=== PATIENT | male | born 1965 | race Two or more races ===

== ENCOUNTER 2020-01-19 21:51 | Emergency (ER) | payer OTHER, SELFPAY ==
[2020-01-19 22:06] VITALS: BP 146/89; PULSE 91; RESP 18; TEMP 36.3; O2SAT 97; BMI 32.9
[2020-01-19 23:28] LABS: Glucose Urine UA NEG (NEG); Leukocyte Esterase Urine TRACE (NEG); Nitrite Urine NEG (NEG); Specific Gravity - Urine 1.025 (1.005-1.025); Urine Blood 3+ (NEG); Urine Ketones NEG (NEG); Urine Protein 1+ MG/DL (NEG-TRACE)
--- NOTE | 2020-01-19 23:30 | ED_ITS ---
HPI - Male Genitourinary General Chief complaint: Urogenital-Male Stated complaint: BLOOD IN URINE Time Seen by Provider: 01/19/20 23:13 Source: patient Mode of arrival: ambulatory Limitations: no limitations History of Present Illness HPI Narrative: patient states was recently diagnosed with UTI on antibiotics but now is having hematuria. Patient had a procedure of the laser of the bladder neck contracture and apical prostate tissue done here 2 weeks ago. Patient states of mild suprapubic tenderness however no flank pain. No nausea no vomiting no fevers noted Severity: mild Severity scale (1-10): 3 Related Data Home Medications Medication Instructions Recorded Confirmed acetaminophen 500 mg tablet 500 mg PO Q6H PRN 01/16/20 atorvastatin 20 mg tablet 20 mg PO DAILY 01/16/20 mkyjeiezeg-grfechfyuhtoz-yszehdbs 1 cap PO Q6H PRN 01/16/20 50 mg-300 mg-40 mg capsule hydrochlorothiazide 12.5 mg tablet 12.5 mg PO DAILY 01/16/20 levothyroxine 112 mcg tablet 112 mcg PO DAILY 01/16/20 omeprazole 40 mg capsule,delayed 40 mg PO DAILY 01/16/20 release oxybutynin chloride 5 mg 5 mg PO DAILY 01/16/20 tablet,extended release 24 hr oxycodone-acetaminophen 5 mg-325 tab PO 01/16/20 mg tablet Previous Rx's Medication Instructions Recorded ciprofloxacin HCl 500 mg tablet 500 mg PO Q12H 7 Days #14 tab 01/16/20 Allergies Allergy/AdvReac Type Severity Reaction Status Date / Time No Known Allergies Allergy Unverified 12/28/19 17:11 [No Known Allergies*] Review of Systems Review of Systems: Constitutional : No Weight loss, No Fever, No Chills, No Night Sweats, No Fatigue, No Malaise ENT/Mouth : No Hearing loss, No Ear Pain, No Nasal Congestion, No Sinus Pain, No Hoarseness, No sore throat, No Rhinorrhea, No Swallowing Difficulty Eyes: No Eye Pain, No Swelling, No Redness, No Foreign Body, No Discharge, No Vision Changes Cardiovascular : No Chest Pain, No SOB, No Dyspnea on Exertion, No Orthopnea, No Edema, No Palpitations Respiratory : No Cough, No Sputum, No Wheezing, No Smoke Exposure, No Dyspnea Gastrointestinal : No Nausea, No Vomiting, No Diarrhea, No Constipation, No abdominal Pain, No Hematochezia, No Melena Genitourinary : no irregular bleeding, positive Dysuria, No Urinary Frequency, positive Hematuria, No Urinary Incontinence, No Urgency, No Flank Pain, No Urinary Flow Changes, No Hesitancy Musculoskeletal : No joint pain, No Myalgias, No Joint Swelling Skin : No Skin Lesions, No rash Neuro : No Weakness, No Numbness, No Paresthesias, No Loss of Consciousness, No Dizziness, No Headache Psych : No Anxiety/Panic, No Depression, No SI/HI/AH/VH, No Social Issues, Heme/Lymph: No Bruising, No Bleeding,No Lymphadenopathy Endocrine : No Polyuria, No Polydipsia, No Temperature Intolerance Yes all other systems are reviewed and are negative [facility] Past Medical History Medical History Bladder neck contracture Family History Family History (Updated 01/19/20 @ 23:32 by Hood Narvaez DO) Other Family history non-contributory Social History Social History Alcohol intake: never Smoking Status: Never smoker Use of substances other than those prescribed or required for medical reasons: No Advance Directives: No Advance Directives Information Provided: No Physical Exam Vital Signs and I&O and Narrative: Vital Signs and I&O: Vital Signs Temp 97.4 F 01/19/20 22:06 Pulse 91 01/19/20 22:06 Resp 18 01/19/20 22:06 BP 146/89 H 01/19/20 22:06 Pulse Ox 97 01/19/20 22:06 Intake & Output 01/19/20 01/19/20 01/20/20 06:59 18:59 06:59 Intake Total 1000 / 1000 Balance 1000 / 1000 Weight 81.647 kg Intake: Intake, IV Amoun t 1000 / 1000 0.9 % Sodium C hloride 1,000 ml 1000 / 1000 @ 999 mls/hr I VCONT .Q1H1M [facility] Rx#:[id number] Body Mass Index 32.9 vital sign noted Const: Other: Appearance: Alert. Oriented X3. No acute distress. Eyes: Pupils equal, round and reactive to light. ENT: Pharynx normal. Neck: Normal inspection. Neck supple. No lymph nodes noted. No crepitus CVS: Normal heart rate and rhythm. Pulses normal. Normal S1 and S2 Respiratory: No respiratory distress. Breath sounds normal. No Wheezing. No rales Abdomen: Soft and nontender. No rigidity. No distention. good BS x4 Skin: Skin warm and dry. Normal skin color. Normal skin turgor. Extremities: No lower extremity edema. Neurovascular intact to all extremities. No Lacerations. No Rash Neuro: Oriented X 3. No motor deficit. No sensory deficit. Moving all extermities. No slurred speech. Course Course Course Narrative: patient received a CT scan urine and labs all within normal limits. Patient able to urinate without blood clots. I discussed with him follow-up with urology. This could be possibility postop mild complication. Patient agrees nontoxic-appearing does not have any signs of peritonitis MDM - Male Genitourinary Lab Data Result diagrams: 01/19/20 23:38 01/19/20 23:38 Labs: Lab Results 01/19/20 01/19/20 01/19/20 Range/Units 23:16 23:38 23:38 WBC 5.6 (4.8-10.8) X10*3/uL RBC 5.10 (4.60-5.80) X10*6/uL Hgb 15.7 (14.0-18.0) g/dl Hct 45.1 (42-52) % MCV 88.4 (80-98) fL MCH 30.8 (27.0-33.0) pg MCHC 34.8 (31.0-36.0) g/dl RDW 13.2 (11.0-16.0) % Plt Count 178 (160-400) X10*3/uL MPV 9.1 L (9.4-12.4) fL Immature Gran % (Auto) 0.2 (0.0-0.4) % Neut % (Auto) 46.0 (45-73) % Lymph % (Auto) 39.1 (20-40) % Lares % (Auto) 11.7 H (2-11) % Eos % (Auto) 2.3 (0-4) % Baso % (Auto) 0.7 (0-2) % Lymph # (Auto) 2.2 (1.2-4.9) X10*3/uL Lares # (Auto) 0.7 (0.1-1.2) X10*3/uL Eos # (Auto) 0.1 (0.0-0.4) X10*3/uL Baso # (Auto) 0.0 (0.0-0.2) X10*3/uL Abs Immat Gran (auto) 0.01 (0.00-0.03) X10*3/uL Absolute Neuts (auto) 2.6 (2.0-8.3) X10*3/uL Absolute Nucleated RBC 0.000 (0.0-0.012) X10*3/uL Nucleated RBC % (auto) 0.0 (0.0-0.2) /100WBC PT 11.7 (10.8-13.0) SEC INR 1.0 (0.9-1.1) APTT 33.6 (24.1-38.0) SEC Sodium (135-145) mmol/L Potassium (3.3-5.1) mmol/l Chloride (96-108) mmol/L Carbon Dioxide (22-29) mmol/L Anion Gap (12-20) BUN (9-16) mg/dL Creatinine (0.5-1.4) mg/dL Estim Creat Clear Calc Estimated GFR Random Glucose (60-115) mg/dL Calcium (8.4-10.2) mg/dL Urine Color RED Urine Appearance HAZY Urine pH 7.0 (5.0-8.0) Ur Specific [place] 1.025 (1.005-1.025) Urine Protein 1+ H (NEG-TRACE) MG/DL Urine Glucose (UA) NEG (NEG) MG/DL Urine Ketones NEG (NEG) MG/DL Urine Blood 3+ H (NEG) Urine Nitrite NEG (NEG) Ur Leukocyte Esterase TRACE H (NEG) Urine RBC TNTC H (0) /HPF Urine WBC 0-2 (0-4) /HPF Ur Squamous Epith Cells TRACE /LPF Urine Bacteria NONE /LPF 01/19/20 Range/Units 23:38 WBC (4.8-10.8) X10*3/uL RBC (4.60-5.80) X10*6/uL Hgb (14.0-18.0) g/dl Hct (42-52) % MCV (80-98) fL MCH (27.0-33.0) pg MCHC (31.0-36.0) g/dl RDW (11.0-16.0) % Plt Count (160-400) X10*3/uL MPV (9.4-12.4) fL Immature Gran % (Auto) (0.0-0.4) % Neut % (Auto) (45-73) % Lymph % (Auto) (20-40) % Lares % (Auto) (2-11) % Eos % (Auto) (0-4) % Baso % (Auto) (0-2) % Lymph # (Auto) (1.2-4.9) X10*3/uL Lares # (Auto) (0.1-1.2) X10*3/uL Eos # (Auto) (0.0-0.4) X10*3/uL Baso # (Auto) (0.0-0.2) X10*3/uL Abs Immat Gran (auto) (0.00-0.03) X10*3/uL Absolute Neuts (auto) (2.0-8.3) X10*3/uL Absolute Nucleated RBC (0.0-0.012) X10*3/uL Nucleated RBC % (auto) (0.0-0.2) /100WBC PT (10.8-13.0) SEC INR (0.9-1.1) APTT (24.1-38.0) SEC Sodium 140 (135-145) mmol/L Potassium 4.0 (3.3-5.1) mmol/l Chloride 104 (96-108) mmol/L Carbon Dioxide 28 (22-29) mmol/L Anion Gap 12 (12-20) BUN 22 H (9-16) mg/dL Creatinine 1.13 (0.5-1.4) mg/dL Estim Creat Clear Calc 67.5 Estimated GFR > 60 Random Glucose 99 (60-115) mg/dL Calcium 9.1 (8.4-10.2) mg/dL Urine Color Urine Appearance Urine pH (5.0-8.0) Ur Specific [place] (1.005-1.025) Urine Protein (NEG-TRACE) MG/DL Urine Glucose (UA) (NEG) MG/DL Urine Ketones (NEG) MG/DL Urine Blood (NEG) Urine Nitrite (NEG) Ur Leukocyte Esterase (NEG) Urine RBC (0) /HPF Urine WBC (0-4) /HPF Ur Squamous Epith Cells /LPF Urine Bacteria /LPF Discharge Plan Discharge Clinical Impression: Hematuria Qualifiers: Hematuria type: other microscopic Qualified Code(s): R31.29 - Other microscopic hematuria Patient Disposition: Home, Self-Care Instructions: Hematuria (ED) Additional Instructions: Thank you for visiting the emergency department today. If your symptoms worsen or do not resolve completely please return to the emergency department immediately or call 911. if he have any questions please call your primary care physician Prescriptions: No Action ciprofloxacin HCl [Cipro] 500 mg tablet 500 mg PO Q12H 7 Days Qty: 14 RF: 0 Referrals: Blane Romo III, MD [Physician] - 2 days Interventions: ED Discharge Assessment Last Done: 01/20/20 02:46 Discharge Date/Time: 01/20/20 02:46
[2020-01-19 23:34] LABS: Appearance Urine HAZY; Color Urine RED
[2020-01-19 23:45] LABS: Basophils Percent Auto 0.7 % (0-2); Eosinophils Absolute Auto 0.1 X10*3/uL (0.0-0.4); Eosinophils Percent Auto 2.3 % (0-4); Hematocrit 45.1 % (42-52); Hemoglobin 15.7 g/dl (14.0-18.0); Imm Gran Abs Auto 0.01 X10*3/uL (0.00-0.03); Imm Gran Pct Auto 0.2 % (0.0-0.4); Lymphocytes Absolute Auto 2.2 X10*3/uL (1.2-4.9); Lymphocytes Percent Auto 39.1 % (20-40); MANUAL DIFF FLAG NO; Mean Corpuscular HGB Conc 34.8 g/dl (31.0-36.0); Mean Corpuscular Hemoglobin 30.8 pg (27.0-33.0); Mean Corpuscular Volume 88.4 fL (80-98); Mean Platelet Volume 9.1 fL (9.4-12.4); Monocytes Absolute Auto 0.7 X10*3/uL (0.1-1.2); Monocytes Percent Auto 11.7 % (2-11); Neutrophils Absolute Auto 2.6 X10*3/uL (2.0-8.3); Platelet Count 178 X10*3/uL (160-400); Red Cell Distribution Width 13.2 % (11.0-16.0); White Blood Count 5.6 X10*3/uL (4.8-10.8)
[2020-01-19] MEDS: 0.9 % Sodium Chloride 1,000 ML 999 ML IVCONT (23:45)
[2020-01-19 23:54] LABS: RBC Urine TNTC /HPF (0); Squamous Epithelial Cell Urine TRACE /LPF; WBC Urine 0-2 /HPF (0-4)
--- NOTE | 2020-01-20 | CT_ITS ---
EXAMINATION: CT ABDOMEN AND PELVIS WITHOUT AND WITH CONTRAST CLINICAL INFORMATION: Pain. Hematoma. COMPARISON: None TECHNIQUE: Multidetector volumetric imaging was performed of the abdomen and pelvis before and after the IV administration of 85 mL of Omnipaque 350 intravenous contrast. Sagittal and coronal reformatted images were obtained on the technologist's workstation. This CT examination was performed using dose optimization techniques as appropriate, variously including the following: *Automated exposure control *Adjustment of mA and/or kV according to patient size (this includes techniques or standardized protocols for targeted exams where dose is matched to indication/reason for exam; i.e. extremities or head) *Use of iterative reconstruction technique DLP: 1175 mGy-cm FINDINGS: LUNG BASES: The visualized lung bases are unremarkable. LIVER, GALLBLADDER, AND BILIARY TREE: The liver is normal in size, shape, and attenuation. No focal hepatic lesion or biliary ductal dilatation is present. Stone seen in the gallbladder lumen. No gallbladder wall thickening or pericholecystic fluid. PANCREAS: Unremarkable SPLEEN: Unremarkable ADRENAL GLANDS: Unremarkable KIDNEYS AND URETERS: The kidneys are normal in size, shape, and attenuation. No hydronephrosis. 0.3 cm calculus at the midpole of the right kidney, 8 cm from the posterior axillary line. Additional smaller calculus at the upper pole. 0.2 cm left lower pole calculus is 9.5 cm from the posterior axillary line. BLADDER: Normally distended bladder. No wall thickening or focal abnormality. GASTROINTESTINAL TRACT: The small and large bowel are unremarkable. The appendix is unremarkable. ABDOMINAL WALL: No significant hernia is appreciated. LYMPH NODES: Normal VASCULAR: Unremarkable PELVIC VISCERA: The prostate and seminal vesicles are unremarkable. OSSEOUS STRUCTURES: Unremarkable IMPRESSION: Nonobstructing bilateral renal calculi. Normal appearance of the bladder. No fluid collection in the pelvis.
[2020-01-20 00:07] LABS: Anion Gap 12 (12-20); Blood Urea Nitrogen 22 mg/dL (9-16); Calcium 9.1 mg/dL (8.4-10.2); Carbon Dioxide 28 mmol/L (22-29); Chloride 104 mmol/L (96-108); Creatinine Clr Calc Pharmacy 67.5; Estimated Glomerular Filt Rate > 60; Glucose Random 99 mg/dL (60-115); Sodium 140 mmol/L (135-145)
[2020-01-20 00:19] LABS: Prothrombin Time 11.7 SEC (10.8-13.0)
[2020-01-20 00:21] LABS: Partial Thromboplastin Time 33.6 SEC (24.1-38.0)
[2020-01-20] MEDS: iohexoL 350 MG/ML 100 ML INFUS..BTL 85 ML IV (01:34)
== END 2020-01-20 02:46 | disposition home or self-care (01) ==
PROVIDERS: Emergency Provider Emergency Medicine
DX: R31.29 Other microscopic hematuria (principal); Z79.899 Other long term (current) drug therapy
CPT/HCPCS: 36415; 74178; 80048; 81001; 85025; 85610; 85730; 87086; 96360; 99284

== ENCOUNTER → 2020-01-23 12:58 | Outpatient (BNVA) | payer OTHER, SELFPAY | PROVIDERS: Visit Provider Urology | DX: R31.9 Hematuria, unspecified (principal); Z98.890 Other specified postprocedural states | CPT/HCPCS: 99212 ==

== ENCOUNTER 2020-05-10 22:42 | Emergency (ER) | payer OTHER, SELFPAY ==
[2020-05-10 23:22] VITALS: BP 158/84; PULSE 87; RESP 16; TEMP 36.6; O2SAT 98; BMI 27.3
--- NOTE | 2020-05-10 23:35 | ED_ITS ---
HPI - Male Genitourinary General Chief complaint: Urogenital-Male Stated complaint: uti Time Seen by Provider: 05/10/20 22:44 Source: patient Mode of arrival: ambulatory Limitations: no limitations History of Present Illness HPI Narrative: 54-year-old male past medical history of recent prostate surgery 4 months ago, hypertension, hypothyroidism, hyperlipidemia presents with urinary symptoms and bilateral flank pain. Does not report to be sexually active with anyone other than his , reports feeling fatigue, subjective fevers and chills over the past two weeks gradually increasing over the past several days. He does not report sick contacts, denies chest pain and pressure, palpitations, testicular pain, testicular swelling, penile discharge, hematuria, and edema. MD Complaint: dysuria Onset (ago): week(s) (2) Duration: intermittent Severity: moderate Quality: aching Relieving factors: none Exacerbating factors: urination Associated symptoms: Reports denies other symptoms Related Data Sexually active: Yes Home Medications Medication Instructions Recorded Confirmed acetaminophen 500 mg tablet 500 mg PO Q6H PRN 01/16/20 atorvastatin 20 mg tablet 20 mg PO DAILY 01/16/20 inhgehkyrg-ywqxvwqbnydvy-cukseuco 1 cap PO Q6H PRN 01/16/20 50 mg-300 mg-40 mg capsule hydrochlorothiazide 12.5 mg tablet 12.5 mg PO DAILY 01/16/20 levothyroxine 112 mcg tablet 112 mcg PO DAILY 01/16/20 omeprazole 40 mg capsule,delayed 40 mg PO DAILY 01/16/20 release oxybutynin chloride 5 mg 5 mg PO DAILY 01/16/20 tablet,extended release 24 hr oxycodone-acetaminophen 5 mg-325 tab PO 01/16/20 mg tablet ciprofloxacin HCl 500 mg tablet 500 mg PO Q12H 01/23/20 flu vacc [id number] 6mos up(PF) ml IM 01/23/20 ketotifen fumarate 0.025 % (0.035 1 drp OPHTHALMIC (EYE) TID 01/23/20 %) eye drops Previous Rx's Medication Instructions Recorded oxybutynin chloride 10 mg 10 mg PO DAILY 90 Days #90 tab 02/14/20 tablet,extended release 24 hr oxycodone 5 mg PO Q8H PRN #7 cap 05/11/20 prednisone 20 mg PO DAILY 7 Days #7 tab 05/11/20 tamsulosin [Flomax] 0.4 mg PO DAILY 14 Days #14 cap 05/11/20 Allergies Allergy/AdvReac Type Severity Reaction Status Date / Time No Known Allergies Allergy Verified 05/10/20 23:20 [No Known Allergies*] Review of Systems Review of Systems: Constitutional: Positive Fever, positive Chills ENT/Mouth: No sore throat Eyes: No Eye Pain, No Swelling, No Redness Cardiovascular: No Chest Pain, No SOB Respiratory: No Cough, No Sputum, No Wheezing Gastrointestinal: positive Nausea, no Vomiting, No Diarrhea, positive abdominal pain Genitourinary: positive Dysuria, positive urinary frequency, positive Hematuria, positive Flank Pain, positive hesitancy Musculoskeletal: No joint pain, No Myalgias Skin: No Skin Lesions, No rash Neuro: No Weakness, No Numbness, No Headache Psych: No Anxiety/Panic, No Depression Heme/Lymph: No Bruising, No Lymphadenopathy Endocrine: No Polyuria, No Polydipsia Yes all other systems are reviewed and are negative [facility] Past Medical History Attestation statement: The following information was validated with the patient. Source: old records reviewed Medical History Bladder neck contracture Family History Family History Other Family history non-contributory Social History Social History Alcohol intake: never Smoking Status: Never smoker Advance Directives: No Advance Directives Information Provided: No Physical Exam Vital Signs: Vital Signs: Last Vital Signs Temp 97.8 F 05/10/20 23:22 Pulse 87 05/10/20 23:22 Resp 16 05/10/20 23:22 BP 158/84 H 05/10/20 23:22 Pulse Ox 98 05/10/20 23:22 Body Mass Index 27.3 Appearance: Alert. Oriented X3. Moderate distress. Eyes: Pupils equal, round and reactive to light. ENT: Pharynx normal. Neck: Normal inspection. Neck supple. CVS: Normal heart rate and rhythm. Pulses normal. Respiratory: No respiratory distress. Breath sounds normal. Abdomen: Soft and suprapubic tenderness Positive CVA tenderness bilaterally Skin: Skin warm and dry. Normal skin color. Normal skin turgor. Extremities: No lower extremity edema. Neuro: No motor deficit. No sensory deficit. Course Course Course Narrative: 54-year-old male with past medical history of hypertension, hyperlipidemia, hypothyroidism presents with bilateral flank pain and urinary symptoms. Had prostate surgery approximately 4 months ago, and has had these symptoms for approximately 2 weeks with gradual worsening of fatigue and intermittent fevers and chills. Will order CBC, Chem 7, lactic, cultures, fluids and urinalysis. Bladder scan indicates 44 mL. Labs indicate leukopenia, urine is clear, COVID is negative. CT scan indicated at this time. CT scan of abdomen shows bilateral kidney stones, will treat with Flomax, prednisone, and pain management. Patient advised to follow-up with urology. Patient verbalized understanding of and agrees to plan of care to discharge home. MDM - Male Genitourinary Differential Diagnosis Differential diagnosis: Likely urinary tract infection, urethritis, e pididymitis, prostatitis, acute retention of urine and inguinal hernia Medical Records Attestation: I reviewed the patient's medical records. Lab Data Attestation: I reviewed the patient's lab results. Result diagrams: 05/11/20 00:03 05/11/20 00:04 Labs: Lab Results 05/11/20 05/11/20 05/11/20 Range/Units 00:03 00:03 00:03 WBC 4.7 L (4.8-10.8) X10*3/uL RBC 5.85 H (4.60-5.80) X10*6/uL Hgb 17.6 (14.0-18.0) g/dl Hct 50.8 (42-52) % MCV 86.8 (80-98) fL MCH 30.1 (27.0-33.0) pg MCHC 34.6 (31.0-36.0) g/dl RDW 12.5 (11.0-16.0) % Plt Count 181 (160-400) X10*3/uL MPV 10.0 (9.4-12.4) fL Immature Gran % (Auto) 0.2 (0.0-0.4) % Neut % (Auto) 43.3 L (45-73) % Lymph % (Auto) 43.9 H (20-40) % [place] % (Auto) 9.1 (2-11) % Eos % (Auto) 2.7 (0-4) % Baso % (Auto) 0.8 (0-2) % Lymph # (Auto) 2.1 (1.2-4.9) X10*3/uL [place] # (Auto) 0.4 (0.1-1.2) X10*3/uL Eos # (Auto) 0.1 (0.0-0.4) X10*3/uL Baso # (Auto) 0.0 (0.0-0.2) X10*3/uL Abs Immat Gran (auto) 0.01 (0.00-0.03) X10*3/uL Absolute Neuts (auto) 2.1 (2.0-8.3) X10*3/uL Absolute Nucleated RBC 0.000 (0.0-0.012) X10*3/uL Nucleated RBC % (auto) 0.0 (0.0-0.2) /100WBC PT 12.0 (10.8-13.0) SEC INR 1.0 (0.9-1.1) APTT 34.4 (24.1-38.0) SEC Sodium (135-145) mmol/L Potassium (3.3-5.1) mmol/L Chloride (96-108) mmol/L Carbon Dioxide (22-29) mmol/L Anion Gap (12-20) BUN (9-16) mg/dL Creatinine (0.5-1.4) mg/dL Estim Creat Clear Calc Estimated GFR Random Glucose (60-115) mg/dL Lactic Acid 1.0 (0.5-2.0) mmol/L Calcium (8.4-10.2) mg/dL Urine Color Urine Appearance Urine pH (5.0-8.0) Ur Specific [place] (1.005-1.025) Urine Protein (NEG-TRACE) MG/DL Urine Glucose (UA) (NEG) MG/DL Urine Ketones (NEG) MG/DL Urine Blood (NEG) Urine Nitrite (NEG) Ur Leukocyte Esterase (NEG) Urine RBC (0) /HPF Urine WBC (0-4) /HPF Ur Squamous Epith Cells /LPF Uric Acid Crystals /LPF Urine Bacteria /LPF 05/11/20 05/11/20 Range/Units 00:03 00:04 WBC (4.8-10.8) X10*3/uL RBC (4.60-5.80) X10*6/uL Hgb (14.0-18.0) g/dl Hct (42-52) % MCV (80-98) fL MCH (27.0-33.0) pg MCHC (31.0-36.0) g/dl RDW (11.0-16.0) % Plt Count (160-400) X10*3/uL MPV (9.4-12.4) fL Immature Gran % (Auto) (0.0-0.4) % Neut % (Auto) (45-73) % Lymph % (Auto) (20-40) % [place] % (Auto) (2-11) % Eos % (Auto) (0-4) % Baso % (Auto) (0-2) % Lymph # (Auto) (1.2-4.9) X10*3/uL [place] # (Auto) (0.1-1.2) X10*3/uL Eos # (Auto) (0.0-0.4) X10*3/uL Baso # (Auto) (0.0-0.2) X10*3/uL Abs Immat Gran (auto) (0.00-0.03) X10*3/uL Absolute Neuts (auto) (2.0-8.3) X10*3/uL Absolute Nucleated RBC (0.0-0.012) X10*3/uL Nucleated RBC % (auto) (0.0-0.2) /100WBC PT (10.8-13.0) SEC INR (0.9-1.1) APTT (24.1-38.0) SEC Sodium 139 (135-145) mmol/L Potassium 4.0 (3.3-5.1) mmol/L Chloride 103 (96-108) mmol/L Carbon Dioxide 26 (22-29) mmol/L Anion Gap 14 (12-20) BUN 18 H (9-16) mg/dL Creatinine 0.96 (0.5-1.4) mg/dL Estim Creat Clear Calc 83.1 Estimated GFR > 60 Random Glucose 124 H (60-115) mg/dL Lactic Acid (0.5-2.0) mmol/L Calcium 9.2 (8.4-10.2) mg/dL Urine Color YELLOW Urine Appearance CLEAR Urine pH 6.5 (5.0-8.0) Ur Specific [place] 1.015 (1.005-1.025) Urine Protein NEG (NEG-TRACE) MG/DL Urine Glucose (UA) NEG (NEG) MG/DL Urine Ketones NEG (NEG) MG/DL Urine Blood TRACE (NEG) Urine Nitrite NEG (NEG) Ur Leukocyte Esterase NEG (NEG) Urine RBC 0-2 (0) /HPF Urine WBC 0 (0-4) /HPF Ur Squamous Epith Cells TRACE /LPF Uric Acid Crystals 1+ /LPF Urine Bacteria NONE /LPF Imaging Data CT scan - abdomen: Attestation: I personally reviewed and interpreted this imaging study as follows: Radiologist's impression: EXAMINATION: CT ABDOMEN AND PELVIS WITHOUT CONTRAST CLINICAL INFORMATION: Abdominal pain COMPARISON: 01/20/2020 TECHNIQUE: Multidetector volumetric imaging was performed from the superior aspect of the liver through the pubic symphysis. Sagittal and coronal reformatted images were obtained on the technologist's workstation. This CT examination was performed using dose optimization techniques as appropriate, variously including the following: *Automated exposure control *Adjustment of mA and/or kV according to patient size (this includes techniques or standardized protocols for targeted exams where dose is matched to indication/reason for exam; i.e. extremities or head) *Use of iterative reconstruction technique DLP: 561 mGy-cm FINDINGS: LUNG BASES: The visualized lung bases are unremarkable. LIVER, GALLBLADDER, AND BILIARY TREE: The liver is normal in size, shape, and attenuation. No focal hepatic lesion or biliary ductal dilatation is present. Cholelithiasis is noted. PANCREAS: Unremarkable. SPLEEN: Unremarkable. ADRENAL GLANDS: Unremarkable. KIDNEYS AND URETERS: The kidneys are normal in size, shape, and attenuation. There are 2 tiny calculi identified in each kidney. No hydronephrosis, hydroureter, or obstructing calculi seen. No perinephric stranding. BLADDER: Unremarkable. GASTROINTESTINAL TRACT: The small and large bowel are unremarkable. The appendix is unremarkable. No free fluid or free air is seen. ABDOMINAL WALL: No significant hernia is appreciated. LYMPH NODES: Normal. VASCULAR: Unremarkable. PELVIC VISCERA: Unremarkable. OSSEOUS STRUCTURES: Unremarkable. CT/CT abdomen pelvis wo con IMPRESSION: 1. No acute findings identified in the abdomen/pelvis. 2. Tiny bilateral renal calculi without hydronephrosis. 3. Cholelithiasis. Discharge Plan Discharge Clinical Impression: Bilateral kidney stones Cholelithiasis Qualifiers: Cholelithiasis location: gallbladder Cholecystitis presence: without cholecystitis Biliary obstruction: without biliary obstruction Qualified Code(s): K80.20 - Calculus of gallbladder without cholecystitis without obstruction Patient Disposition: Home, Self-Care Instructions: Gallstones (ED), Kidney Stones (ED) Additional Instructions: You were evaluated for urinary symptoms and bilateral flank pain. CT scan of the abdomen indicates bilateral kidney stones as well as a gallbladder stone wit hout indication of cholecystitis. Please take Flomax, prednisone, and oxycodone as directed. Oxycodone is a narcotic and has high risk for addiction and abuse. Do not drive or operate machinery while taking this medication. This medication may increase risk for falls, cause drowsiness, and decreased reaction time. Medication is constipating, drink plenty of fluids and consider using MiraLax and Colace as needed to help move bowels. Please follow-up with surgery as an outpatient for gallstones. Please follow-up with Urology for bilateral kidney stones. Thank you for choosing this emergency department for evaluation. Please follow-up with primary care physician as needed. Return to the emergency department for any new, concerning, or worsening symptoms. Prescriptions: New prednisone 20 mg tablet 20 mg PO DAILY 7 Days Qty: 7 RF: 0 oxycodone 5 mg capsule 5 mg PO Q8H PRN (Reason: pain) Qty: 7 RF: 0 tamsulosin [Flomax] 0.4 mg capsule 0.4 mg PO DAILY 14 Days Qty: 14 RF: 0 No Action oxybutynin chloride 10 mg tablet extended release 24hr 10 mg PO DAILY 90 Days Qty: 90 RF: 2
[2020-05-11 00:14] LABS: MANUAL DIFF FLAG NO
[2020-05-11 00:19] LABS: Basophils Percent Auto 0.8 % (0-2); Eosinophils Absolute Auto 0.1 X10*3/uL (0.0-0.4); Eosinophils Percent Auto 2.7 % (0-4); Hematocrit 50.8 % (42-52); Hemoglobin 17.6 g/dl (14.0-18.0); Imm Gran Abs Auto 0.01 X10*3/uL (0.00-0.03); Imm Gran Pct Auto 0.2 % (0.0-0.4); Lymphocytes Absolute Auto 2.1 X10*3/uL (1.2-4.9); Lymphocytes Percent Auto 43.9 % (20-40); Mean Corpuscular HGB Conc 34.6 g/dl (31.0-36.0); Mean Corpuscular Hemoglobin 30.1 pg (27.0-33.0); Mean Corpuscular Volume 86.8 fL (80-98); Monocytes Absolute Auto 0.4 X10*3/uL (0.1-1.2); Monocytes Percent Auto 9.1 % (2-11); Neutrophils Absolute Auto 2.1 X10*3/uL (2.0-8.3); Neutrophils Percent Auto 43.3 % (45-73); Platelet Count 181 X10*3/uL (160-400); Red Blood Count 5.85 X10*6/uL (4.60-5.80); Red Cell Distribution Width 12.5 % (11.0-16.0); White Blood Count 4.7 X10*3/uL (4.8-10.8)
[2020-05-11 00:20] LABS: Glucose Urine UA NEG (NEG); Leukocyte Esterase Urine NEG (NEG); Nitrite Urine NEG (NEG); PH 6.5 (5.0-8.0); Specific Gravity - Urine 1.015 (1.005-1.025); Urine Blood TRACE (NEG); Urine Ketones NEG (NEG); Urine Protein NEG (NEG-TRACE)
[2020-05-11 00:22] LABS: Appearance Urine CLEAR; Color Urine YELLOW
[2020-05-11 00:29] LABS: Partial Thromboplastin Time 34.4 SEC (24.1-38.0)
[2020-05-11 00:39] LABS: Anion Gap 14 (12-20); Blood Urea Nitrogen 18 mg/dL (9-16); Calcium 9.2 mg/dL (8.4-10.2); Carbon Dioxide 26 mmol/L (22-29); Chloride 103 mmol/L (96-108); Creatinine Clr Calc Pharmacy 83.1; Estimated Glomerular Filt Rate > 60; Glucose Random 124 mg/dL (60-115); Sodium 139 mmol/L (135-145)
--- NOTE | 2020-05-11 01:05 | CT_ITS ---
EXAMINATION: CT ABDOMEN AND PELVIS WITHOUT CONTRAST CLINICAL INFORMATION: Abdominal pain COMPARISON: 01/20/2020 TECHNIQUE: Multidetector volumetric imaging was performed from the superior aspect of the liver through the pubic symphysis. Sagittal and coronal reformatted images were obtained on the technologist's workstation. This CT examination was performed using dose optimization techniques as appropriate, variously including the following: *Automated exposure control *Adjustment of mA and/or kV according to patient size (this includes techniques or standardized protocols for targeted exams where dose is matched to indication/reason for exam; i.e. extremities or head) *Use of iterative reconstruction technique DLP: 561 mGy-cm FINDINGS: LUNG BASES: The visualized lung bases are unremarkable. LIVER, GALLBLADDER, AND BILIARY TREE: The liver is normal in size, shape, and attenuation. No focal hepatic lesion or biliary ductal dilatation is present. Cholelithiasis is noted. PANCREAS: Unremarkable. SPLEEN: Unremarkable. ADRENAL GLANDS: Unremarkable. KIDNEYS AND URETERS: The kidneys are normal in size, shape, and attenuation. There are 2 tiny calculi identified in each kidney. No hydronephrosis, hydroureter, or obstructing calculi seen. No perinephric stranding. BLADDER: Unremarkable. GASTROINTESTINAL TRACT: The small and large bowel are unremarkable. The appendix is unremarkable. No free fluid or free air is seen. ABDOMINAL WALL: No significant hernia is appreciated. LYMPH NODES: Normal. VASCULAR: Unremarkable. PELVIC VISCERA: Unremarkable. OSSEOUS STRUCTURES: Unremarkable. CT/CT abdomen pelvis wo con IMPRESSION: 1. No acute findings identified in the abdomen/pelvis. 2. Tiny bilateral renal calculi without hydronephrosis. 3. Cholelithiasis.
[2020-05-11 01:13] LABS: RBC Urine 0-2 /HPF (0); Squamous Epithelial Cell Urine TRACE /LPF; Uric Acid Crystals Urine 1+ /LPF; WBC Urine 0 /HPF (0-4)
[2020-05-11 02:04] LABS: COVID-19 Test Negative (Negative)
[2020-05-11] MEDS: 0.9 % Sodium Chloride 1,000 ML 999 ML IVCONT (02:07)
[2020-05-11] MEDS: Tamsulosin HCL 0.4 MG CAPSULE PO (02:58)
[2020-05-11] MEDS: predniSONE 20 MG TABLET PO (02:59)
[2020-05-11] MEDS: Ketorolac Tromethamine 30 MG/ML VIAL IVPUSH (02:59)
[2020-05-13 15:42] LABS: C. trachomatis RNA TMA NOT DETECTED (NOT DETECTED); N. gonorrhoeae RNA TMA NOT DETECTED (NOT DETECTED)
== END 2020-05-11 03:12 | disposition home or self-care (01) ==
PROVIDERS: Nurse Practitioner Family; Student in an Organized Health Care Education/Training Program; Emergency Provider Internal Medicine
DX: K80.20 Calculus of gallbladder without cholecystitis without obstruction (principal); Z79.899 Other long term (current) drug therapy; Z20.822 Contact with and (suspected) exposure to COVID-19
CPT/HCPCS: 36415; 51798; 74176; 80048; 81001; 83605; 85025; 85610; 85730; 87040; 87491; 87591; 87635; 96361; 96374; 99283; 99284; J1885

== ENCOUNTER 2020-06-11 09:40 | Emergency (ER) | payer OTHER, SELFPAY ==
[2020-06-11 09:44] VITALS: BP 152/95; PULSE 67; RESP 16; TEMP 36.1; O2SAT 98; BMI 30.1
--- NOTE | 2020-06-11 10:03 | ED.MALEGU ---
HPI - Male Genitourinary General Chief complaint: Urogenital-Male Stated complaint: UNABLE TO URINATE Time Seen by Provider: 06/11/20 09:58 Source: patient Mode of arrival: ambulatory History of Present Illness HPI Narrative: 54-year-old male with a past medical history of prostate surgery 4 months ago, hypertension, hypothyroid, hyperlipidemia presented to the ED complaining of urinary retention/hesitancy, dysuria, and lower abdominal pressure. Of note patient recently seen and treated in the ED on 05/10 for similar symptoms diagnosed w/ bilateral renal calculi, had 44 mL in bladder, states symptoms are unchanged since prior visit. Denies fever, chills, testicular/penile pain, hematuria, flank pain, nausea/vomiting, diarrhea, concern for STI Related Data Home Medications Medication Instructions Recorded Confirmed acetaminophen 500 mg tablet 500 mg PO Q6H PRN 01/16/20 atorvastatin 20 mg tablet 20 mg PO DAILY 01/16/20 [id number]-puovdbhgfshgw-nhqfadbt 1 cap PO Q6H PRN 01/16/20 50 mg-300 mg-40 mg capsule hydrochlorothiazide 12.5 mg tablet 12.5 mg PO DAILY 01/16/20 levothyroxine 112 mcg tablet 112 mcg PO DAILY 01/16/20 omeprazole 40 mg capsule,delayed 40 mg PO DAILY 01/16/20 release oxybutynin chloride 5 mg 5 mg PO DAILY 01/16/20 tablet,extended release 24 hr oxycodone-acetaminophen 5 mg-325 tab PO 01/16/20 mg tablet ciprofloxacin HCl 500 mg tablet 500 mg PO Q12H 01/23/20 flu vacc [id number] 6mos up(PF) ml IM 01/23/20 ketotifen fumarate 0.025 % (0.035 1 drp OPHTHALMIC (EYE) TID 01/23/20 %) eye drops Previous Rx's Medication Instructions Recorded oxybutynin chloride 10 mg 10 mg PO DAILY 90 Days #90 tab 02/14/20 tablet,extended release 24 hr oxycodone 5 mg PO Q8H PRN #7 cap 05/11/20 prednisone 20 mg PO DAILY 7 Days #7 tab 05/11/20 tamsulosin [Flomax] 0.4 mg PO DAILY 14 Days #14 cap 05/11/20 phenazopyridine [Pyridium] 200 mg PO TID #6 tab 06/11/20 tamsulosin [Flomax] 0.4 mg PO DAILY 14 Days #14 cap 06/11/20 Allergies Allergy/AdvReac Type Severity Reaction Status Date / Time No Known Allergies Allergy Verified 05/10/20 23:20 [No Known Allergies*] Review of Systems Review of Systems: Constitutional: No Fever, No Chills Cardiovascular: No Chest Pain, No SOB Respiratory: No Cough Gastrointestinal: No Nausea, No Vomiting, No Abdominal pain Genitourinary: No irregular bleeding, + Dysuria,+ Urinary Frequency, No Hematuria, No Urgency, No Flank Pain, + Urinary Flow Changes, +Hesitancy Skin: No Skin Lesions, No rash Yes all other systems are reviewed and are negative [facility] Past Medical History Attestation statement: The following information was validated with the patient. Medical History Bladder neck contracture Family History Family History Other Family history non-contributory Social History Social History Alcohol intake: never Smoking Status: Never smoker Advance Directives: Yes Advance Directives Information Provided: Yes Advance Directives on File: No Physical Exam Vital Signs: Vital Signs: Last Vital Signs Temp 96.9 F 06/11/20 09:44 Pulse 67 06/11/20 09:44 Resp 16 06/11/20 09:44 BP 152/95 H 06/11/20 09:44 Pulse Ox 98 06/11/20 09:44 Body Mass Index 30.1 Const: General: cooperative, healthy appearing, comfortable and no acute distress Orientation/consciousness: patient oriented x3 Limitations: no limitations HENMT: Head: Yes normal to inspection Ears: hearing grossly normal bilaterally General nose exam: Normal external nose present Face and sinus: Yes normal facial exam Eyes: General: appearance normal, both eyes and all related structures EOM: EOMs intact bilaterally Neck: Neck: Yes normal visual inspection and Yes no meningeal signs Resp: Effort & Inspection: normal respiratory effort Cardio: Rate: regular rate GI: Inspection: Yes normal to inspection Palpation (GI): Soft to palpation, nontender, no guarding and not rigid : General: Yes no CVA tenderness Back/Spine/Pelvis: Back: no CVA tenderness Skin: Rashes: no rashes Wounds: no wounds Neuro: General: patient oriented x3 and no meningeal signs Gait exam (Neuro): Normal gait present Extrem: General: Yes normal to inspection MDM - Male Genitourinary MDM Narrative Medical decision making narrative: 54-year-old male with a past medical history of prostate surgery 4 months ago, hypertension, hypothyroid, hyperlipidemia presented to the ED complaining of urinary retention/hesitancy, dysuria, and lower abdominal pressure. On exam VSS, NAD/well-appearing, abdomen soft/nontender, no CVAT. Labs/CT and UA reviewed from 05/10. Patient gave urine sample in waiting room today which is not infected. Postvoid residual with 130cc. ?Bladder spasming vs dysuria. Low concern for obstructing stone/hydro, UTI/pyelo, or STI Plan: UA, bladder scan Lab Data Labs: Lab Results 06/11/20 Range/Units 09:55 Urine Color YELLOW Urine Appearance CLEAR Urine pH 7.0 (5.0-8.0) Ur Specific [place] 1.010 (1.005-1.025) Urine Protein NEG (NEG-TRACE) MG/DL Urine Glucose (UA) NEG (NEG) MG/DL Urine Ketones NEG (NEG) MG/DL Urine Blood NEG (NEG) Urine Nitrite NEG (NEG) Ur Leukocyte Esterase NEG (NEG) Urine RBC 0 (0) /HPF Urine WBC 0 (0-4) /HPF Ur Squamous Epith Cells TRACE /LPF Urine Bacteria NONE /LPF Discharge Plan Discharge Clinical Impression: Dysuria, Urinary hesitancy Patient Disposition: Home, Self-Care Instructions: Dysuria (ED) Additional Instructions: Your urine is not infected. Continue taking Flomax at home. In addition start taking Pyridium which will help with the urinary discomfort. You need to follow-up with urology as scheduled. Call to see if her earlier appointment. If you develop fever, chills, abdominal pain, blood in her urine, nausea/vomiting, back pain return to the ED Tu orina no est? infectada. Contin?e tomando Flomax en casa. Adem?s, comience a bianca Pyridium, que le ayudar? con las molestias urinarias. Debe realizar un seguimiento con urolog?a seg?n lo programado. Llame para ashley si hamm delfina anterior. Si presenta fiebre, escalofr?os, dolor abdominal, kobi en la orina, n?useas / v?mitos, dolor de espalda, vuelva al servicio de urgencias. Prescriptions: New tamsulosin [Flomax] 0.4 mg capsule 0.4 mg PO DAILY 14 Days Qty: 14 RF: 0 phenazopyridine [Pyridium] 200 mg tablet 200 mg PO TID Qty: 6 RF: 0 No Action oxybutynin chloride 10 mg tablet extended release 24hr 10 mg PO DAILY 90 Days Qty: 90 RF: 2 prednisone 20 mg tablet 20 mg PO DAILY 7 Days Qty: 7 RF: 0 oxycodone 5 mg capsule 5 mg PO Q8H PRN (Reason: pain) Qty: 7 RF: 0 tamsulosin [Flomax] 0.4 mg capsule 0.4 mg PO DAILY 14 Days Qty: 14 RF: 0 Referrals: Sergio Koenig MD [Physician] - 1 week Print Language: Barbadian
[2020-06-11 10:23] LABS: Glucose Urine UA NEG (NEG); Leukocyte Esterase Urine NEG (NEG); Nitrite Urine NEG (NEG); Urine Blood NEG (NEG); Urine Ketones NEG (NEG); Urine Protein NEG (NEG-TRACE)
[2020-06-11 10:26] LABS: Appearance Urine CLEAR; Color Urine YELLOW
[2020-06-11 10:38] LABS: RBC Urine 0 /HPF (0); Squamous Epithelial Cell Urine TRACE /LPF; WBC Urine 0 /HPF (0-4)
== END 2020-06-11 11:27 | disposition home or self-care (01) ==
PROVIDERS: Emergency Provider Emergency Medicine
DX: R33.9 Retention of urine, unspecified (principal); I10 Essential (primary) hypertension; E78.5 Hyperlipidemia, unspecified; R30.0 Dysuria; Z79.899 Other long term (current) drug therapy
CPT/HCPCS: 51798; 81001; 99283

== ENCOUNTER → 2020-06-26 09:14 | Outpatient (BNVA) | payer OTHER, SELFPAY | PROVIDERS: Visit Provider Surgery | DX: K80.20 Calculus of gallbladder without cholecystitis without obstruction (principal) | CPT/HCPCS: 99202 ==

== ENCOUNTER → 2020-07-02 13:59 | Outpatient (BNVA) | payer OTHER, SELFPAY | PROVIDERS: Visit Provider Urology | DX: Z13.89 Encounter for screening for other disorder (principal) | CPT/HCPCS: 99212 ==

== ENCOUNTER 2020-09-11 10:49 | Outpatient (REF) | payer OTHER, SELFPAY ==
--- NOTE | ~2020-09-11 | US_ITS ---
EXAMINATION: US PELVIS LIMITED (BLADDER) CLINICAL INFORMATION: Poor urinary stream. COMPARISON: CT abdomen and pelvis 05/11/2020. TECHNIQUE: Real-time imaging of the bladder. FINDINGS: BLADDER: The bladder appears slightly thick walled but is well distended. The wall measures about 3 mm in thickness. Bilateral ureteral jets are demonstrated. Prevoid bladder volume is 159 mL. Postvoid bladder volume is 7.5 mL. There appears to be a TURP defect present in the prostate. Please correlate with surgical history. Similar finding can be appreciated on the lateral images from the CT scan (series 7:52). The prostate measures 17.8 mL. US/US bladder IMPRESSION: TURP defect present in prostate. The bladder is otherwise unremarkable.
== END 2020-09-11 10:50 | disposition home or self-care (01) ==
LOC: HO.US 10:49
PROVIDERS: Visit Provider Urology
DX: R39.12 Poor urinary stream (principal); R35.1 Nocturia
CPT/HCPCS: 76857

== ENCOUNTER → 2020-10-16 13:35 | Outpatient (BNVA) | payer OTHER, SELFPAY | PROVIDERS: Visit Provider Urology | DX: N20.0 Calculus of kidney (principal); N32.0 Bladder-neck obstruction; N40.1 Benign prostatic hyperplasia with lower urinary tract symptoms; N13.8 Other obstructive and reflux uropathy; E03.9 Hypothyroidism, unspecified | CPT/HCPCS: 99212 ==

== ENCOUNTER 2021-02-25 09:01 | Outpatient (REF) | payer OTHER, SELFPAY ==
--- NOTE | ~2021-02-25 | US_ITS ---
EXAMINATION: US RETROPERITONEAL LIMITED (RENAL ONLY) CLINICAL INFORMATION: Calculus of kidney. COMPARISON: CT abdomen and pelvis 05/11/2020. TECHNIQUE: Real-time imaging of the kidneys. FINDINGS: RIGHT KIDNEY: 11.4 x 4.8 x 6.5 cm (SAG x AP x TRV). The kidney is normal in size, contour, and echogenicity. Renal cortical thickness is normal. No calculi or focal parenchymal lesions. No hydronephrosis. There are multiple punctate calcification seen without twinkling artifact. LEFT KIDNEY: 11.8 x 5.9 x 5.0 cm (SAG x AP x TRV). The kidney is normal in size, contour, and echogenicity. Renal cortical thickness is normal. No calculi or focal parenchymal lesions. No hydronephrosis. There are prominent renal pyramids seen with multiple punctate calcifications without twinkling artifact. US/US renal BI IMPRESSION: Multiple bbilateral punctate calcifications seen in both kidneys. No echogenic stones or hydronephrosis. Mildly echogenic left renal pyramids.
== END 2021-02-25 09:02 | disposition home or self-care (01) ==
LOC: HO.US 09:01
PROVIDERS: Visit Provider Urology
DX: N20.0 Calculus of kidney (principal)
CPT/HCPCS: 76775

== ENCOUNTER 2021-04-08 08:25 | Outpatient (REF) | payer OTHER, SELFPAY ==
--- NOTE | ~2021-04-08 | US_ITS ---
EXAMINATION: US ABDOMEN COMPLETE CLINICAL INFORMATION: Gallstones. COMPARISON: Renal ultrasound 02/25/2021. CT abdomen and pelvis 05/11/2020. TECHNIQUE: Real-time imaging of the abdominal viscera. FINDINGS: PANCREAS: Obscured by bowel gas. ABDOMINAL AORTA: The proximal, mid, and distal segments are normal in caliber. INFERIOR VENA CAVA: Visualized portions are normal. LIVER: The liver is normal in size. The liver contour is normal. Diffuse increased echogenicity of the hepatic parenchyma. No focal hepatic lesion. There is no intrahepatic biliary duct dilatation seen. GALLBLADDER: There is a gallstone identified within the neck region measuring 1.4 x 0.7 x 1.0 cm with posterior acoustic shadowing. The gallbladder is physiologically distended. Multiple mobile gallstones are present. No evidence of gallbladder wall thickening or pericholecystic fluid. COMMON BILE DUCT: Normal in caliber measuring 0.7 cm in diameter. RIGHT KIDNEY: Echogenic focus at the midpole measures 0.5 x 0.4 cm, no trunk artifact or posterior acoustic shadowing. Echogenic focus within the midpole region laterally measuring 0.3 x 0.1 cm, too small to characterize. Multiple punctate calcifications seen within the renal cortex. No hydronephrosis or focal parenchymal lesions. The kidney measures 11.1 cm in maximum dimension. LEFT KIDNEY: Echogenic focus in the lower pole measures 0.5 x 0.6 cm without clinical artifact. Multiple punctate calcifications seen within the cortex. No hydronephrosis or focal parenchymal lesions. The kidney measures 11.2 cm in maximum dimension. SPLEEN: Normal. The spleen measures 9.1 cm in maximum dimension. FREE FLUID: None. US/US abdomen complete IMPRESSION: 1. Cholelithiasis without sonographic evidence of acute cholecystitis. 2. Diffusely increased echogenicity of the hepatic parenchyma, a nonspecific finding but most commonly on the basis of diffuse hepatocellular disease such as hepatic steatosis. 3. Bilateral nonobstructing renal calculi, similar to the comparison study.
== END 2021-04-08 08:26 | disposition home or self-care (01) ==
LOC: HO.US 08:25
PROVIDERS: Visit Provider Internal Medicine
DX: R10.9 Unspecified abdominal pain (principal); K80.20 Calculus of gallbladder without cholecystitis without obstruction
CPT/HCPCS: 76700

== ENCOUNTER 2021-04-09 06:45 | Day surgery (SDC) | payer OTHER, SELFPAY ==
[2021-04-09 06:57] VITALS: BMI 31.4
[2021-04-09 07:06] VITALS: BP 151/94; PULSE 66; RESP 16; TEMP 36.6; O2SAT 97
--- NOTE | 2021-04-09 07:17 | HO.ANESPROP2 ---
[facility] Active Problems Active Problems: All Active Problems (Updated 04/09/21 @ 06:51 by Ebony Soriano RN) UTI (urinary tract infection) (Acute) Bladder outlet obstruction (Acute) Weak urinary stream (Acute) Nocturia more than twice per night (Acute) Nephrolithiasis (Acute) Past Medical History Medical History Bladder neck contracture Elevated cholesterol Hemorrhoids HTN (hypertension) Hx of renal calculi Hypothyroidism Rhinitis Family History Family History Sister Lung cancer Kidney carcinoma Other Family history non-contributory Surgical History Surgical History History of prostate surgery History of surgery Hx of colonoscopy History of Problems with Anesthesia: No Social History Social History Alcohol intake: never Patient Tobacco Use Status: Never used Tobacco Use of substances other than those prescribed or required for medical reasons: No Are you DNR?: No Advance Directives: No Advance Directives Information Provided: Yes Meds Allergies Allergy/AdvReac Type Severity Reaction Status Date / Time No Known Allergies Allergy Verified 04/09/21 06:57 [No Known Allergies*] Active Medications: Current Medications Sodium Biphosphate/Sodium Phosphate (Sodium Phosphate,[place]-Dibasic 133 Ml Enema) 133 ml SC ONCE PRN PRN Reason: Poor Colonoscopy Prep Results Home Medications Medication Instructions Recorded Confirmed Last Taken Type acetaminophen 500 mg tablet 500 mg PO Q6H PRN 01/16/20 06/26/20 Unknown History atorvastatin 20 mg tablet 20 mg PO DAILY 01/16/20 06/26/20 Unknown History hydrochlorothiazide 12.5 mg tablet 12.5 mg PO DAILY 01/16/20 06/26/20 Unknown History levothyroxine 112 mcg tablet 112 mcg PO DAILY 01/16/20 06/26/20 Unknown History omeprazole 40 mg capsule,delayed 40 mg PO DAILY 01/16/20 06/26/20 Unknown History release flu vacc [id number] 6mos up(PF) ml IM 01/23/20 06/26/20 Unknown History ketotifen fumarate 0.025 % (0.035 1 drp OPHTHALMIC (EYE) TID 01/23/20 06/26/20 Unknown History %) eye drops hydralazine 50 mg tablet 50 mg PO BEDTIME 10/16/20 Unknown History Exam Exam Date and Time: April 09, 2021 0717 Height,Weight and Vital Signs: Height 5 ft 4 in Weight 83.007 kg Last Vital Signs Temp 97.8 F 04/09/21 07:06 Pulse 66 04/09/21 07:06 Resp 16 04/09/21 07:06 BP 151/94 H 04/09/21 07:06 Pulse Ox 97 04/09/21 07:06 Airway Mallampati Class: III TM Dist: >3cm Neck ROM: Full Loose/Missing/Broken Teeth: No Heart: RRR Lungs: CTA Assessment and Plan Assessment Anesthesia Assessment: Anesthesia Plan Discussed and Chart Reviewed Final Anesthetic Review History of Problems with Anesthesia: No NPO: Yes ASA Class: II Final Preanesthetic Review: Meds/Allgs Chart Reviewed, Consent Obtained/Reviewed and Anes Risks/Benef Reviewed Patient Risk: Low Procedure Risk: Intermediate Anesthetic Plan Anesthetic Plan: MAC: Disposition: Standard PACU
[2021-04-09] MEDS: Lactated Ringers 1,000 ML 50 ML IVCONT (07:40)
[2021-04-09 08:40] VITALS: BP 115/71; PULSE 69; RESP 18; TEMP 36.1; O2SAT 100
--- NOTE | 2021-04-09 08:47 | P.BOP_ITS ---
Brief Operative Note Date of Service: 04/09/21 Pre-op diagnosis: GERD, Screening Post-op diagnosis: other (Hiatal hernia, Colon polyp) Procedure: EGD with biopsies, Colonoscopy to the cecum and TI with bx/removal of polyp Surgeon: Telly Xiong Anesthesia: MAC Was an Lead Process Engineer used for this Procedure?: No Estimated blood loss (mL): 2.0 Pathology: other (A. EG Junction at 36cm B. Cecal polyp) Condition: stable Disposition: PACU
[2021-04-09 08:55] VITALS: BP 122/86; PULSE 62; RESP 18; O2SAT 100
[2021-04-09 09:10] VITALS: BP 129/85; PULSE 62; RESP 18; TEMP 36.2; O2SAT 100
--- NOTE | 2021-04-09 10:15 | OP_ITS ---
SURGEON: Telly Xiong MD INDICATIONS: The patient presents for evaluation of gastroesophageal reflux, colorectal cancer screening. Full consent was obtained from him for this, including risks of bleeding and perforation. PREOPERATIVE DIAGNOSIS: POSTOPERATIVE DIAGNOSIS: PROCEDURE PERFORMED: Esophagogastroduodenoscopy with biopsies, and colonoscopy to the cecum and terminal ileum with biopsy and removal of polyp. ESTIMATED BLOOD LOSS: COMPLICATIONS: ANESTHESIA: Monitored anesthesia care. ASSISTANTS: SPECIMENS: PREOPERATIVE DIAGNOSES: Gastroesophageal reflux and colorectal cancer screening. POSTOPERATIVE DIAGNOSES: Gastroesophageal reflux and colorectal cancer screening, small hiatal hernia, small colon polyp, mild diverticulosis, and small internal hemorrhoids. DESCRIPTION OF PROCEDURE: The patient was placed in the left lateral decubitus position. The Olympus video gastroscope was passed in the posterior oropharynx and upper esophagus under direct vision. The scope was passed slowly to the distal esophagus. The gastroesophageal junction appeared at 36 cm. There was some slight irregularity consistent with reflux and possibly small, less than 1 cm areas of Hutchinson mucosa. There was no esophagitis nor any lesions. The scope entered into the stomach. There was a small hiatal hernia. The scope was advanced to pylorus. The duodenum was cannulated to the descending portion. The duodenum including the bulb appeared normal without mass or ulceration. The scope was withdrawn back in the stomach. The gastric antrum and body appeared normal with good peristalsis. Scope was retroflexed visualizing the proximal stomach carefully, which appeared normal, without any sign of mass or ulceration. Scope was straightened and withdrawn back to the esophagus. Biopsies were obtained at the EG junction at 36 cm. Proximal to this, the esophageal mucosa appeared normal. The scope was withdrawn from the patient. He was turned around for the colonoscopy. The digital rectal exam revealed no abnormalities. The Olympus video pediatric colonoscope was entered into the rectum and advanced easily to the cecum. Once in the cecum, I did identify normal-appearing cecal pouch with appendiceal orifice, other than an approximately 3 or 4 mm cecal polyp, which was biopsied and completely removed with cold biopsy forceps. The terminal ileum was cannulated and appeared normal. The scope withdrawn back in the colon. The remainder of the cecum appeared normal. The scope was then slowly withdrawn assessing all mucosal surfaces carefully. For the most part, preparation was very good throughout the colon, although some areas had to be suctioned and irrigated to obtain good visualization. I did not visualize any other polyps, colitis, nor angiodysplasia. There was a mild amount of sigmoid diverticulosis. In the rectum, scope was retroflexed visualizing small internal hemorrhoids, but no other pathology. The rectal mucosa appeared normal. The scope was straightened and withdrawn from the patient. He tolerated both procedures well and was returned to recovery area in stable condition. IMPRESSION: 1. Small hiatal hernia, gastroesophageal reflux. 2. Small colon polyp, status post biopsy removal. 3. Mild diverticulosis. 4. Small internal hemorrhoids. PLAN: The results of biopsies will be checked. If the colon polyp is a tubular adenoma, I would recommend a followup colonoscopy in 5 years. If it is only hyperplastic, I would recommend a followup colonoscopy in 10 years. If there is evidence of Hutchinson mucosa, I would recommend a repeat upper endoscopy in 3 years. He was advised to continue his daily omeprazole. He was advised not to use any aspirin and NSAIDs for at least 1 week. MD JIMBO Kurtz/DARIEN / [id number] MTDBrie
== END 2021-04-09 09:51 | disposition home or self-care (01) ==
PROVIDERS: Visit Provider Internal Medicine
PROC: (CPT 45380; principal; 2021-04-09 07:30)
DX: Z12.11 Encounter for screening for malignant neoplasm of colon (principal); K63.5 Polyp of colon; K57.30 Diverticulosis of large intestine without perforation or abscess without bleeding; K64.8 Other hemorrhoids; K21.9 Gastro-esophageal reflux disease without esophagitis; K44.9 Diaphragmatic hernia without obstruction or gangrene; E55.9 Vitamin D deficiency, unspecified; I10 Essential (primary) hypertension; N40.0 Benign prostatic hyperplasia without lower urinary tract symptoms; E03.9 Hypothyroidism, unspecified; E78.5 Hyperlipidemia, unspecified; Z79.899 Other long term (current) drug therapy; Z87.442 Personal history of urinary calculi
CPT/HCPCS: 45380; 43239; 88305

== ENCOUNTER → 2021-05-21 11:40 | Outpatient (BNVA) | payer OTHER, SELFPAY | PROVIDERS: Visit Provider Urology | DX: N32.0 Bladder-neck obstruction (principal); N20.0 Calculus of kidney; R35.1 Nocturia | CPT/HCPCS: 99212 ==

== ENCOUNTER 2021-10-14 07:56 | Outpatient (REF) | payer OTHER, SELFPAY ==
--- NOTE | ~2021-10-14 | US_ITS ---
EXAMINATION: US RETROPERITONEAL LIMITED (RENAL ONLY) CLINICAL INFORMATION: Calculus of kidney. COMPARISON: Ultrasound abdomen complete 04/08/2021. Renal ultrasound 02/25/2021. CT abdomen and pelvis 05/11/2020. TECHNIQUE: Real-time imaging of the kidneys. FINDINGS: RIGHT KIDNEY: 10.6 x 5.8 x 5.4 cm (SAG x AP x TRV). The kidney is normal in size, contour, and echogenicity. Renal cortical thickness is normal. There are several small stones, largest 4 mm in the lower pole. No focal parenchymal lesions or hydronephrosis. LEFT KIDNEY: 11.4 x 5.8 x 4.6 cm (SAG x AP x TRV). The kidney is normal in size, contour, and echogenicity. Renal cortical thickness is normal. There are several small stones, largest a 4 mm in the lower pole. No focal parenchymal lesions or hydronephrosis. US/US renal BI IMPRESSION: Small bilateral renal stones.
== END 2021-10-14 07:57 | disposition home or self-care (01) ==
LOC: HO.US 07:56
PROVIDERS: Visit Provider Urology
DX: N20.0 Calculus of kidney (principal)
CPT/HCPCS: 76775

== ENCOUNTER 2021-11-25 10:41 | Outpatient (REF) | payer OTHER, SELFPAY ==
[2021-11-25 14:02] LABS: Prostate Specific Antigen 0.46 ng/mL (<0.05-4.0)
== END 2021-11-25 10:42 | disposition home or self-care (01) ==
LOC: HO.10HDL 10:41
PROVIDERS: Visit Provider Urology
DX: Z12.5 Encounter for screening for malignant neoplasm of prostate (principal); N32.0 Bladder-neck obstruction
CPT/HCPCS: 36415; 84153

== ENCOUNTER 2021-12-23 09:46 | Emergency (ER) | payer OTHER, SELFPAY ==
[2021-12-23 10:38] VITALS: BP 152/89; PULSE 67; RESP 18; TEMP 36.9; O2SAT 98; BMI 27.3
[2021-12-23 11:54] LABS: Appearance Urine Clear; Color Urine Yellow; Glucose Urine UA Negative (Negative); Leukocyte Esterase Urine Negative (Negative); Nitrite Urine Negative (Negative); PH 6.5 (5.0-9.0); Specific Gravity - Urine 1.015 (1.005-1.025); Urine Blood Negative (Negative); Urine Ketones Negative (Negative); Urine Protein Negative (Neg-Trace)
--- NOTE | 2021-12-23 12:15 | ED_ITS ---
HPI - Male Genitourinary General Chief complaint: Urogenital-Male Stated complaint: pain while urinating Time Seen by Provider: 12/23/21 12:15 History of Present Illness HPI Narrative: Patient complains of urinary frequency for the past week, worse in the daytime but he is able to sleep with 1 or 2 awakenings to urinate, with no significant discomfort no burning no bad odor no flank pain or back pain no abdominal pain, no fever no vomiting no fever, no vomiting Related Data Home Medications Medication Instructions Recorded Confirmed acetaminophen 500 mg tablet 500 mg PO Q6H PRN 01/16/20 06/26/20 atorvastatin 20 mg tablet 20 mg PO DAILY 01/16/20 06/26/20 hydrochlorothiazide 12.5 mg tablet 12.5 mg PO DAILY 01/16/20 06/26/20 levothyroxine 112 mcg tablet 112 mcg PO DAILY 01/16/20 06/26/20 omeprazole 40 mg capsule,delayed 40 mg PO DAILY 01/16/20 06/26/20 release flu vacc [id number] 6mos up(PF) 60 ml IM 01/23/20 06/26/20 mcg(15 mcgx4)/0.5 mL IM syringe ketotifen fumarate 0.025 % (0.035 1 drp ophthalmic (eye) TID itch 01/23/20 06/26/20 %) eye drops hydralazine 50 mg tablet 50 mg PO BEDTIME 10/16/20 cyclobenzaprine 5 mg tablet 5 mg PO BID muscle pain 11/18/21 hydrochlorothiazide 25 mg tablet 25 mg PO DAILY 11/18/21 lisinopril 20 mg tablet 20 mg PO DAILY 11/18/21 Previous Rx's Medication Instructions Recorded pyridoxine (vitamin B6) 100 mg 100 mg PO DAILY 90 days #90 tabs 05/21/21 tablet tamsulosin 0.4 mg capsule 0.4 mg PO BEDTIME 90 days #90 caps 05/21/21 phenazopyridine 200 mg tablet 200 mg PO TID 6 doses #6 tabs 12/23/21 (Pyridium) Allergies Allergy/AdvReac Type Severity Reaction Status Date / Time No Known Allergies Allergy Verified 11/18/21 11:28 [No Known Allergies*] Review of Systems Review of Systems: No fever no chills no dizziness no weakness no headache no neck pain no chest pain no abdominal pain no burning with urination no pain with urination no flank pain Yes all other systems are reviewed and are negative [facility] Past Medical History Source: nursing notes reviewed Medical History Bladder neck contracture Elevated cholesterol Hemorrhoids HTN (hypertension) Hx of renal calculi Hypothyroidism Rhinitis Surgical History History of prostate surgery History of surgery Hx of colonoscopy Family History Family History Sister Lung cancer Kidney carcinoma Other Family history non-contributory Social History Social History Alcohol intake: never Patient Tobacco Use Status: Never used Tobacco Advance Directives: No Advance Directives Information Provided: No Physical Exam Vital Signs: Vital Signs: Last Vital Signs Temp 98.4 F 12/23/21 10:38 Pulse 67 12/23/21 10:38 Resp 18 12/23/21 10:38 BP 152/89 H 12/23/21 10:38 Pulse Ox 98 12/23/21 10:38 O2 Del Method 12/23/21 10:38 BMI result Body Mass Index 27.3 General appearance is no distress Eyes anicteric no pallor The pharynx is moist no redness swelling or exudate Neck is supple Respiratory no distress Abdomen soft nontender The back no CVA tenderness Skin no rash Course Course Course Narrative: UA was negative and clear, patient has had similar symptoms before and is followed by urologist He is given a prescription for Pyridium and will follow with his urologist [facility] - Male Genitourinary Lab Data Labs: Lab Results 12/23/21 Range/Units 11:42 Urine Color Yellow Urine Appearance Clear Urine pH 6.5 (5.0-9.0) Ur Specific [place] 1.015 (1.005-1.025) Urine Protein Negative (Neg-Trace) mg/dL Urine Glucose (UA) Negative (Negative) mg/dL Urine Ketones Negative (Negative) mg/dL Urine Blood Negative (Negative) Urine Nitrite Negative (Negative) Ur Leukocyte Esterase Negative (Negative) Discharge Plan Discharge Clinical Impression: Dysuria Patient Disposition: Home, Self-Care Additional Instructions: The urine was clean with no sign of infection or diabetes Symptoms may be from irritation or inflammation so we are trying Pyridium for 2 days Return to the ER for pain, vomiting, any worse condition or any concerns Follow with your primary doctor and urologist Prescriptions: New phenazopyridine [Pyridium] 200 mg tablet 200 mg PO TID Qty: 6 0RF No Action levothyroxine 112 mcg tablet 112 mcg PO DAILY atorvastatin 20 mg tablet 20 mg PO DAILY hydrochlorothiazide 12.5 mg tablet 12.5 mg PO DAILY omeprazole 40 mg capsule,delayed release(DR/EC) 40 mg PO DAILY acetaminophen 500 mg tablet 500 mg PO Q6H PRN Fluzone Quad [id number] (PF) 60 mcg (15 mcg x 4)/0.5 mL syringe IM ketotifen fumarate 0.025 % (0.035 %) drops 1 drp ophthalmic (eye) TID hydralazine 50 mg tablet 50 mg PO BEDTIME pyridoxine (vitamin B6) 100 mg tablet 100 mg PO DAILY 90 Days Qty: 90 1RF tamsulosin 0.4 mg capsule 0.4 mg PO BEDTIME 90 Days Qty: 90 1RF cyclobenzaprine 5 mg tablet 5 mg PO BID hydrochlorothiazide 25 mg tablet 25 mg PO DAILY lisinopril 20 mg tablet 20 mg PO DAILY Referrals: Sergio Koenig MD [Physician] - (Urinary frequency, no UTI) Interventions: ED Discharge Assessment Last Done: 12/23/21 12:45 Discharge Date/Time: 12/23/21 12:45
== END 2021-12-23 12:45 | disposition home or self-care (01) ==
PROVIDERS: Emergency Provider Emergency Medicine
DX: R30.0 Dysuria (principal); E78.00 Pure hypercholesterolemia, unspecified; I10 Essential (primary) hypertension; Z79.02 Long term (current) use of antithrombotics/antiplatelets; Z79.899 Other long term (current) drug therapy
CPT/HCPCS: 81003; 99282; 99283

== ENCOUNTER → 2022-03-31 14:04 | Outpatient (BNVA) | payer OTHER, SELFPAY | PROVIDERS: Visit Provider Urology | DX: N20.0 Calculus of kidney (principal); R39.15 Urgency of urination | CPT/HCPCS: 52000; 99212 ==

== ENCOUNTER → 2022-06-02 14:13 | Outpatient (BNVA) | payer OTHER, SELFPAY | PROVIDERS: Visit Provider Urology | DX: Z13.89 Encounter for screening for other disorder (principal) ==

== ENCOUNTER 2022-09-22 05:55 | Emergency (ER) | payer OTHER, SELFPAY ==
--- NOTE | ~2022-09-22 | CT_ITS ---
EXAMINATION: CT ABDOMEN AND PELVIS WITHOUT CONTRAST CLINICAL INFORMATION: Bilateral flank pain COMPARISON: Renal ultrasound 10/14/2021. CT abdomen pelvis 05/11/2020 TECHNIQUE: Multidetector volumetric imaging was performed from the superior aspect of the liver through the pubic symphysis. Sagittal and coronal reformatted images were obtained on the technologist's workstation. This CT examination was performed using dose optimization techniques as appropriate, variously including the following: *Automated exposure control *Adjustment of mA and/or kV according to patient size (this includes techniques or standardized protocols for targeted exams where dose is matched to indication/reason for exam; i.e. extremities or head) *Use of iterative reconstruction technique DLP: 581 mGy-cm FINDINGS: LUNG BASES: The visualized lung bases are unremarkable. LIVER, GALLBLADDER, AND BILIARY TREE: The liver is normal in size, shape, and hypoattenuated. No focal hepatic lesion or biliary ductal dilatation is present. There is solitary 9 mm radiopaque gallstone in the neck of the gallbladder without wall thickening or pericholecystic fluid collection. PANCREAS: Unremarkable. SPLEEN: Unremarkable. ADRENAL GLANDS: Unremarkable. KIDNEYS AND URETERS: The kidneys are normal in size, shape, and attenuation. There are small radiopaque bilateral 2-tumor radiopaque calculi in in both kidneys without caliectasis or hydronephrosis. There is anechoic partially exophytic 1.4 cm cyst upper pole right kidney. BLADDER: Unremarkable. GASTROINTESTINAL TRACT: There is scattered stool and gas seen throughout the colon without distention. The small bowel loops are normal caliber. Appendix is nondistended. ABDOMINAL WALL: No significant hernia is appreciated. LYMPH NODES: Normal. VASCULAR: Unremarkable. PELVIC VISCERA: Unremarkable. OSSEOUS STRUCTURES: No aggressive lytic or sclerotic process seen. CT/CT abdomen pelvis wo IV con IMPRESSION: 1. Bilateral nonobstructive radiopaque renal calculi without caliectasis or hydronephrosis. There is a small exophytic cyst upper pole right kidney. 2. Mild constipation. 3. Diffuse hepatic steatosis without focal lesion. 4. Cholelithiasis without wall thickening. Fleischner guidelines were followed.
[2022-09-22 06:03] VITALS: BP 154/96; PULSE 73; RESP 16; TEMP 36.4; O2SAT 97; BMI 31.2
[2022-09-22 06:21] VITALS: BP 128/85; PULSE 69; RESP 17; TEMP 36.6; O2SAT 97
[2022-09-22 06:31] LABS: Hematocrit 47.7 % (42.0-52.0); Mean Corpuscular HGB Conc 33.5 g/dl (31.0-36.0); Mean Corpuscular Hemoglobin 29.6 pg (27.0-33.0); Mean Corpuscular Volume 88.2 fL (80.0-98.0); Mean Platelet Volume 9.4 fL (9.4-12.4); Platelet Count 148 X10*3/uL (160-400); Red Blood Count 5.41 X10*6/uL (4.60-5.80); Red Cell Distribution Width 13.4 % (11.0-16.0); White Blood Count 3.9 X10*3/uL (4.8-10.8)
--- NOTE | 2022-09-22 06:38 | ED_ITS ---
HPI - General Adult General Chief complaint: General Medical Stated complaint: Urinary retention Time Seen by Provider: 09/22/22 06:37 Source: patient Mode of arrival: ambulatory Limitations: no limitations History of Present Illness HPI narrative: Patient is a 56 year old male with a history of bladder outlet obstruction presenting today for urinary retention that started a week ago. He describes urinary symptoms of weak urinary stream, post-void dribbling, dysuria, increased urgency and increased frequency. Patient reports that he spends about 1-2 hours in the bathroom trying to urinate. He tells me that this happened last year, however the symptoms are worse this time. He admits to non-radiating back pain, though denies vomiting, abdominal pain or hematuria. He reports no other acute concerns at this time. Onset (ago): week(s) (one week) Location: back Severity: mild Severity scale (1-10): 2 Relieving factors: none Exacerbating factors: none Associated symptoms: denies other symptoms Treatments prior to arrival: none Related Data Home Medications Medication Instructions Recorded Confirmed acetaminophen 500 mg tablet 500 mg PO Q6H PRN 01/16/20 06/02/22 atorvastatin 20 mg tablet 20 mg PO DAILY 01/16/20 06/02/22 levothyroxine 112 mcg tablet 112 mcg PO DAILY 01/16/20 06/02/22 omeprazole 40 mg capsule,delayed 40 mg PO DAILY 01/16/20 06/02/22 release hydrochlorothiazide 25 mg tablet 25 mg PO DAILY 11/18/21 06/02/22 lisinopril 20 mg tablet 20 mg PO DAILY 11/18/21 06/02/22 Previous Rx's Medication Instructions Recorded pyridoxine (vitamin B6) 100 mg 100 mg PO DAILY 90 days #90 tabs 03/31/22 tablet tamsulosin 0.4 mg capsule 0.4 mg PO BEDTIME 90 days #90 caps 06/02/22 tolterodine 4 mg capsule,extended 4 mg PO DAILY 90 days #90 caps 06/02/22 release 24 hr magnesium citrate 150 ml PO DAILY #296 mL 09/22/22 prednisone 20 mg tablet 20 mg PO DAILY 7 days #7 tabs 09/22/22 Allergies Allergy/AdvReac Type Severity Reaction Status Date / Time No Known Allergies Allergy Verified 06/02/22 14:13 [No Known Allergies*] Review of Systems Constitutional: Constitutional: Reports no additional constitutional complaints, Denies fever(s) and Denies night sweats Eyes: Eyes: Reports no additional eye complaints, Denies diplopia, Denies eye discharge and Denies loss of vision ENT: Denies dizziness Cardiovascular: Cardiovascular: Reports no additional cardiovascular complaints and Denies dyspnea Respiratory: Respiratory: Reports no additional respiratory complaints, Denies cough and Denies dyspnea Gastrointestinal: Gastrointestinal: Reports no additional gastrointestinal complaints, Denies abdominal pain, Denies melena, Denies hematochezia, Denies change in bowel habits and Denies change in stool character Genitourinary: Genitourinary: Denies hematuria, Reports difficulty urinating, Reports flank pain, Reports urinary frequency and Reports urinary urgency Musculoskeletal: Musculoskeletal: Reports no additional musculoskeletal complaints Neurologic: Denies dizziness and Denies loss of vision Psychiatric: Psychiatric: Reports no additional psychiatric complaints Endocrine: Endocrine: Reports no additional endocrine complaints Hematologic/Lymphatic: Hematologic/Lymphatic: Reports no additional hematologic/lymphatic complaints Allergic/Immunologic: Allergic/Immunologic: Reports no additional allergic/immunologic complaints [facility] Past Medical History Attestation statement: The following information was validated with the patient. Source: old records reviewed and nursing notes reviewed Medical History Bladder neck contracture Elevated cholesterol Hemorrhoids HTN (hypertension) Hx of renal calculi Hypothyroidism Rhinitis Surgical History History of prostate surgery History of surgery Hx of colonoscopy Family History Family History Sister Lung cancer Kidney carcinoma Other Family history non-contributory Social History Social History Alcohol intake: never Patient Tobacco Use Status: Never used Tobacco Smoked in Last 30 Days: No Use of substances other than those prescribed or required for medical reasons: No Advance Directives: No Advance Directives Information Provided: Yes Physical Exam ED Vital Signs: Vital Signs - 24 hr 09/22/22 06:03 09/22/22 06:21 09/22/22 08:12 Temperature 97.6 F 97.9 F Pulse Rate 73 69 67 Respiratory Rate 16 17 16 Blood Pressure 154/96 H 128/85 132/85 Pulse Oximetry 97 97 98 Oxygen Delivery Method Room Air Room Air Room Air BMI result Body Mass Index 31.2 Const General: cooperative, no acute distress, alert and awake Nutritional Appearance: well nourished Orientation/consciousness: patient oriented x3 Limitations: no limitations HENMT Head: Yes normal to inspection Ears: hearing grossly normal bilaterally and external ears normal General nose exam: Normal external nose present, no nasal discharge noted and no epistaxis Face and sinus: Yes normal facial exam, No abrasion and No laceration Mouth: Normal oral and palatal mucosa present, no drooling and no muffled voice Eyes General: appearance normal, both eyes and all related structures Periorbital: periorbital findings normal Eyelids: Yes eyelids normal Conjunctivae: conjunctivae normal Pupils: Equal, round and reactive pupils present EOM: EOMs intact bilaterally Neck Neck: Yes normal visual inspection and Yes no lymphadenopathy Chest Chest palpation & inspection: normal inspection of the chest Resp Effort & Inspection: normal respiratory effort and able to speak in complete sentences Auscultation: clear to auscultation bilaterally Cardio Rate: regular rate Rhythm: regular rhythm GI Inspection: Yes normal to inspection Palpation (GI): Soft to palpation, not firm, nontender, no guarding and not rigid Percussion: Yes normal to percussion Auscultation: normal bowel sounds General: Yes no CVA tenderness Back/Spine/Pelvis Back: no CVA tenderness Neuro General: patient oriented x3 and moves all extremities Cranial nerves: Yes Equal, round and reactive pupils present Cognition (Neuro): normal cognition Motor exam (neuro): 5/5 motor strength present throughout Sensory Exam: Normal double simultaneous stimulation for sensation Coordination: [id number] test normal Extrem General: Yes normal to inspection Psych Appearance: grossly normal Mental Status: mental status grossly normal Affect: normal affect Attitude: cooperative Thought process: Normal thought process present Thought content: Normal thought content present Insight: Good insight present (Psych) Medical Decision Making Medical Decision Making MDM Narrative: Patient is a 56 year old assigned male at with a history of bladder outlet obstruction presenting to the emergency department today with concern of urinary retention. Patient's physical exam was unremarkable. Patient's blood work was unremarkable. Patient's urine showed no acute process. Patient's abdomen/pelvis CT showed a 9mm gallstone with no associated cholecystitis, bilateral renal calculi, and constipation. Patient's bladder scan showed <100ml. Patient admits to being on tamsulosin from his urologist already. I explained my physical exam findings as well as all test results to the patient. I answered all questions asked by the patient. I stressed the importance of the patient taking his medication as prescribed. I stressed the importance of the patient following up with his primary care provider, his urologist, and with a general surgeon to follow up on his large gallstone. I stressed the importance of the patient returning to the emergency department immediately if his symptoms were to worsen or if he were to develop any dizziness, shortness of breath, difficulty breathing, chest pain, blurry vision, loss of vision, nausea, vomiting, abdominal pain, fever, chills, back pain, or any other complaints. Patient verbalized agreement and understanding with this treatment plan and discharge. Differential Diagnosis Differential Diagnoses: The differential diagnosis associated with the presentation includes constipation, renal calculi Admission/Observation Consideration of admission/observation: Escalation of care including admission/observation considered Patient would have been admitted to the hospital had his work up had any findings where hospital admission was appropriate. Lab Data MDM Lab Attestation statement: I reviewed the patient's lab results. My interpretation of these studies and their corresponding values is that they are grossly normal. 09/22/22 06:26 09/22/22 06:26 Labs: Lab Results 09/22/22 09/22/22 09/22/22 Range/Units 06:26 06:26 07:23 WBC 3.9 L (4.8-10.8) X10*3/uL RBC 5.41 (4.60-5.80) X10*6/uL Hgb 16.0 (14.0-18.0) g/dl Hct 47.7 (42.0-52.0) % MCV 88.2 (80.0-98.0) fL MCH 29.6 (27.0-33.0) pg MCHC 33.5 (31.0-36.0) g/dl RDW 13.4 (11.0-16.0) % Plt Count 148 L (160-400) X10*3/uL MPV 9.4 (9.4-12.4) fL Absolute Nucleated RBC 0.000 (0.0-0.012) X10*3/uL Nucleated RBC % (auto) 0.0 (0.0-0.2) /100WBC Sodium 142 (135-145) mmol/L Potassium 3.4 (3.3-5.1) mmol/L Chloride 108 (96-108) mmol/L Carbon Dioxide 26 (22-29) mmol/L Anion Gap 11 L (12-20) BUN 29 H (9-16) mg/dL Creatinine 1.08 (0.5-1.4) mg/dL Estim Creat Clear Calc 72.2 Estimated GFR > 60 Random Glucose 97 (60-115) mg/dL Calcium 9.0 (8.4-10.2) mg/dL Total Bilirubin 0.5 (0.0-1.0) mg/dL AST 18 (5-37) U/L ALT 32 (0-40) U/L Alkaline Phosphatase 83 (39-117) U/L Total Protein 6.7 (6.5-8.0) g/dL Albumin 4.1 (3.5-5.0) g/dL Lipase 28 (8-78) U/L Urine Color Yellow Urine Appearance Clear Urine pH 6.5 (5.0-9.0) Ur Specific [place] 1.020 (1.005-1.025) Urine Protein Negative (Neg-Trace) mg/dL Urine Glucose (UA) Negative (Negative) mg/dL Urine Ketones Negative (Negative) mg/dL Urine Blood Negative (Negative) Urine Nitrite Negative (Negative) Ur Leukocyte Esterase Negative (Negative) Independent Interpretation I performed an independent interpretation of an: CT Scan Interpretation: My interpretation is in agreement with the radiologist's impression of this imaging study. --------- EXAMINATION: CT ABDOMEN AND PELVIS WITHOUT CONTRAST? CLINICAL INFORMATION: Bilateral flank pain? COMPARISON: Renal ultrasound 10/14/2021. CT abdomen pelvis 05/11/2020 TECHNIQUE: Multidetector volumetric imaging was performed from the superior aspect of the liver through the pubic symphysis. Sagittal and coronal reformatted images were obtained on the technologist's workstation.? This CT examination was performed using dose optimization techniques as appropriate, variously including the following: *Automated exposure control *Adjustment of mA and/or kV according to patient size (this includes techniques or standardized protocols for targeted exams where dose is matched to indication/reason for exam; i.e. extremities or head) *Use of iterative reconstruction technique DLP: 581 mGy-cm FINDINGS: LUNG BASES: The visualized lung bases are unremarkable.? LIVER, GALLBLADDER, AND BILIARY TREE: The liver is normal in size, shape, and hypoattenuated. No focal hepatic lesion or biliary ductal dilatation is present. There is solitary 9 mm radiopaque gallstone in the neck of the gallbladder without wall thickening or pericholecystic fluid collection.? PANCREAS: Unremarkable.? SPLEEN: Unremarkable.? ADRENAL GLANDS: Unremarkable.? KIDNEYS AND URETERS: The kidneys are normal in size, shape, and attenuation. There are small radiopaque bilateral 2-tumor radiopaque calculi in in both kidneys without caliectasis or hydronephrosis. There is anechoic partially exophytic 1.4 cm cyst upper pole right kidney.? BLADDER: Unremarkable.? GASTROINTESTINAL TRACT: There is scattered stool and gas seen throughout the colon without distention. The small bowel loops are normal caliber. Appendix is nondistended.? ABDOMINAL WALL: No significant hernia is appreciated.? LYMPH NODES: Normal. VASCULAR: Unremarkable. PELVIC VISCERA: Unremarkable.? OSSEOUS STRUCTURES: No aggressive lytic or sclerotic process seen.? CT/CT abdomen pelvis wo IV con IMPRESSION: 1.? Bilateral nonobstructive radiopaque renal calculi without caliectasis or hydronephrosis. There is a small exophytic cyst upper pole right kidney. 2.? Mild constipation. 3.? Diffuse hepatic steatosis without focal lesion. 4.? Cholelithiasis without wall thickening. ? Fleischner guidelines were followed. Dictated By: Pedro Renae MD Signed By: Electronically signed by Pedro Renae MD 09/22/22 0821 Chronic Conditions Patient?s care impacted by: Other (bladder outlet obstruction) Discharge Plan Discharge Clinical Impression: Nephrolithiasis, Constipation Patient Disposition: Home, Self-Care Instructions: Gallstones (ED), Kidney Stones (ED), Colonoscopy (DC) Additional Instructions: Follow up with your primary care provider, a urologist for your urinary symptoms, and a general surgeon for your gallstone. Return to the emergency department immediately if your symptoms worsen or if you develop any dizziness, shortness of breath, difficulty breathing, chest pain, blurry vision, loss of vision, nausea, vomiting, abdominal pain, fever, chills, back pain, or any other complaints. April un seguimiento con hamm proveedor de atenci?n primaria, un ur?logo para francisco s?ntomas urinarios y un cirujano general para hamm c?lculo biliar. Regrese al departamento de emergencias de inmediato si francisco s?ntomas empeoran o si presenta mareos, falta de aire, dificultad para respirar, dolor de pecho, visi?n borrosa, p?rdida de la visi?n, n?useas, v?mitos, dolor abdominal, fiebre, escalofr?os, dolor de espalda o cualquier otras quejas. Prescriptions: New prednisone 20 mg tablet 20 mg PO DAILY 7 Days Qty: 7 0RF magnesium citrate Solution 150 ml PO DAILY Qty: 296 0RF No Action levothyroxine 112 mcg tablet 112 mcg PO DAILY atorvastatin 20 mg tablet 20 mg PO DAILY omeprazole 40 mg capsule,delayed release(DR/EC) 40 mg PO DAILY acetaminophen 500 mg tablet 500 mg PO Q6H PRN hydrochlorothiazide 25 mg tablet 25 mg PO DAILY lisinopril 20 mg tablet 20 mg PO DAILY pyridoxine (vitamin B6) 100 mg tablet 100 mg PO DAILY 90 Days Qty: 90 1RF tolterodine 4 mg capsule,extended release 24hr 4 mg PO DAILY 90 Days Qty: 90 1RF tamsulosin 0.4 mg capsule 0.4 mg PO BEDTIME 90 Days Qty: 90 1RF Referrals: [facility] [place] [facility] [place]Provider Group] (Follow up with a general surgeon to follow up on your gallstone. April un seguimiento con un cirujano general para hacer un seguimiento de hamm c?lculo biliar.) [facility] [place] [facility] [place]Provider Group] (Follow up with your urologist. Seguimiento con hamm ur?logo.) [facility] [Primary Care Provider] - Stand Alone Forms: Work/School Release Print Language: Lithuanian
[2022-09-22 07:02] LABS: Alanine Aminotransferase 32 U/L (0-40); Albumin Level 4.1 g/dL (3.5-5.0); Alkaline Phosphatase 83 U/L (39-117); Anion Gap 11 (12-20); Aspartate Amino Transferase 18 U/L (5-37); Bilirubin Total 0.5 mg/dL (0.0-1.0); Blood Urea Nitrogen 29 mg/dL (9-16); Carbon Dioxide 26 mmol/L (22-29); Chloride 108 mmol/L (96-108); Creatinine Clr Calc Pharmacy 72.2; Estimated Glomerular Filt Rate > 60; Glucose Random 97 mg/dL (60-115); Lipase 28 U/L (8-78); Potassium 3.4 mmol/L (3.3-5.1); Sodium 142 mmol/L (135-145); Total Protein 6.7 g/dL (6.5-8.0)
--- NOTE | 2022-09-22 07:24 | PC.NURSE ---
Initial contact with pt. pt resting comfortably. urine sample sent. no other needs at this time.
[2022-09-22 07:34] LABS: Appearance Urine Clear; Color Urine Yellow; Glucose Urine UA Negative (Negative); Leukocyte Esterase Urine Negative (Negative); Nitrite Urine Negative (Negative); PH 6.5 (5.0-9.0); Urine Blood Negative (Negative); Urine Ketones Negative (Negative); Urine Protein Negative (Neg-Trace)
[2022-09-22 08:12] VITALS: BP 132/85; PULSE 67; RESP 16; O2SAT 98
== END 2022-09-22 09:17 | disposition home or self-care (01) ==
PROVIDERS: Emergency Provider Internal Medicine
DX: R33.9 Retention of urine, unspecified (principal); N20.0 Calculus of kidney; K59.00 Constipation, unspecified; R10.2 Pelvic and perineal pain; Z79.899 Other long term (current) drug therapy
CPT/HCPCS: 36415; 51798; 74176; 80053; 81003; 83690; 85027; 99284

== ENCOUNTER 2022-10-27 06:55 | Emergency (ER) | payer OTHER, SELFPAY ==
[2022-10-27 07:38] VITALS: BP 143/83; PULSE 70; RESP 18; TEMP 36.7; O2SAT 98; BMI 30.3
[2022-10-27 07:54] LABS: MANUAL DIFF FLAG NO
[2022-10-27 07:58] LABS: Basophils Percent Auto 1.1 % (0-2); Eosinophils Absolute Auto 0.1 X10*3/uL (0.0-0.4); Eosinophils Percent Auto 3.5 % (0-4); Hematocrit 48.7 % (42.0-52.0); Hemoglobin 16.6 g/dl (14.0-18.0); Imm Gran Abs Auto 0.01 X10*3/uL (0.00-0.03); Imm Gran Pct Auto 0.3 % (0.0-0.4); Lymphocytes Absolute Auto 1.6 X10*3/uL (1.2-4.9); Lymphocytes Percent Auto 43.4 % (20-40); Mean Corpuscular HGB Conc 34.1 g/dl (31.0-36.0); Mean Corpuscular Volume 88.1 fL (80.0-98.0); Mean Platelet Volume 9.5 fL (9.4-12.4); Monocytes Absolute Auto 0.5 X10*3/uL (0.1-1.2); Monocytes Percent Auto 12.2 % (2-11); Neutrophils Absolute Auto 1.5 x10*3/uL (2.0-8.3); Neutrophils Percent Auto 39.5 % (45-73); Platelet Count 164 X10*3/uL (160-400); Red Blood Count 5.53 X10*6/uL (4.60-5.80); Red Cell Distribution Width 12.9 % (11.0-16.0); White Blood Count 3.8 X10*3/uL (4.8-10.8)
[2022-10-27 08:11] LABS: Alanine Aminotransferase 29 U/L (0-40); Albumin Level 4.2 g/dL (3.5-5.0); Alkaline Phosphatase 76 U/L (39-117); Anion Gap 12 (12-20); Aspartate Amino Transferase 19 U/L (5-37); Bilirubin Total 0.8 mg/dL (0.0-1.0); Blood Urea Nitrogen 22 mg/dL (9-16); Calcium 9.3 mg/dL (8.4-10.2); Carbon Dioxide 28 mmol/L (22-29); Chloride 104 mmol/L (96-108); Creatinine Clr Calc Pharmacy 80.4; Estimated Glomerular Filt Rate > 60; Glucose Random 104 mg/dL (60-115); Potassium 3.2 mmol/L (3.3-5.1); Sodium 141 mmol/L (135-145)
[2022-10-27 09:23] VITALS: BP 131/84; PULSE 58; RESP 12; TEMP 36.6; O2SAT 99
[2022-10-27 09:32] LABS: Appearance Urine Clear; Color Urine Yellow; Glucose Urine UA Negative (Negative); Leukocyte Esterase Urine Negative (Negative); Nitrite Urine Negative (Negative); Urine Blood Negative (Negative); Urine Ketones Negative (Negative); Urine Protein Negative (Neg-Trace)
--- NOTE | 2022-10-27 10:53 | PC.NURSE ---
RETING QUIETLY ON STRETCHER IN NO OUTWARD DISTRESS.
--- NOTE | 2022-10-27 11:50 | ED_ITS ---
HPI - Male Genitourinary General Chief complaint: Urogenital-Male Stated complaint: can't urinate Time Seen by Provider: 10/27/22 09:32 Source: patient Mode of arrival: ambulatory Limitations: no limitations History of Present Illness HPI Narrative: 56-year-old male presents with difficulty urinating. Symptoms started 2 days ago. Symptoms are intermittent. Associated with a lower left pelvic discomfort. He has had urinary frequency and urgency but no urination. He denies any fevers or chills. Denies any back pain. There is no clear relieving or exacerbating features. Patient has never had this before. He denies any blood in his urine. Patient does report some nausea but no vomiting. Denies any diarrhea or constipation. He had denies any blood in stool. Patient denies a history of previous symptoms. Related Data Home Medications Medication Instructions Recorded Confirmed acetaminophen 500 mg tablet 500 mg PO Q6H PRN 01/16/20 06/02/22 atorvastatin 20 mg tablet 20 mg PO DAILY 01/16/20 06/02/22 levothyroxine 112 mcg tablet 112 mcg PO DAILY 01/16/20 06/02/22 omeprazole 40 mg capsule,delayed 40 mg PO DAILY 01/16/20 06/02/22 release hydrochlorothiazide 25 mg tablet 25 mg PO DAILY 11/18/21 06/02/22 lisinopril 20 mg tablet 20 mg PO DAILY 11/18/21 06/02/22 Previous Rx's Medication Instructions Recorded pyridoxine (vitamin B6) 100 mg 100 mg PO DAILY 90 days #90 tabs 03/31/22 tablet tamsulosin 0.4 mg capsule 0.4 mg PO BEDTIME 90 days #90 caps 06/02/22 tolterodine 4 mg capsule,extended 4 mg PO DAILY 90 days #90 caps 06/02/22 release 24 hr magnesium citrate 150 ml PO DAILY #296 mL 09/22/22 prednisone 20 mg tablet 20 mg PO DAILY 7 days #7 tabs 09/22/22 phenazopyridine 100 mg tablet 100 mg PO TID 6 doses #6 tabs 10/27/22 (Pyridium) tamsulosin 0.4 mg capsule 0.4 mg PO DAILY #14 caps 10/27/22 Allergies Allergy/AdvReac Type Severity Reaction Status Date / Time No Known Allergies Allergy Verified 06/02/22 14:13 [No Known Allergies*] Review of Systems Review of Systems: CONSTITUTIONAL: Denies weight loss, fever and chills. HEENT: Denies changes in vision and hearing. RESPIRATORY: Denies SOB and cough. CV: Denies palpitations no CP. GI: Denies abdominal pain, nausea, vomiting and diarrhea. : + dysuria and urinary frequency. MSK: Denies myalgia and joint pain. SKIN: Denies rash and pruritus. NEUROLOGICAL: Denies headache and syncope. PSYCHIATRIC: Denies recent changes in mood. Denies anxiety and depression. All other ROS are negative unless in HPI PMFSH Past Medical History Medical History Bladder neck contracture Elevated cholesterol Hemorrhoids HTN (hypertension) Hx of renal calculi Hypothyroidism Rhinitis Surgical History History of prostate surgery History of surgery Hx of colonoscopy Family History Family History Sister Lung cancer Kidney carcinoma Other Family history non-contributory Social History Social History Alcohol intake: unknown Patient Tobacco Use Status: Never used Tobacco Advance Directives: No Advance Directives Information Provided: Yes Physical Exam Vital Signs: Vital Signs: Last Vital Signs Temp 97.8 F 10/27/22 09:23 Pulse 58 10/27/22 09:23 Resp 12 10/27/22 09:23 BP 131/84 10/27/22 09:23 Pulse Ox 99 10/27/22 09:23 O2 Del Method Room Air 10/27/22 09:23 BMI result Body Mass Index 30.3 GEN: Well developed, no acute distress, alert, oriented HEENT: Normocephalic, atraumatic, normal external ears, nose appears normal, no oropharyngeal edema or exudates Eyes: Normal to appearance Neck: Supple, no lymphadenopathy Respiratory: Talks in complete sentences, no respiratory distress, clear to auscultation bilaterally Cardiovascular: Regular rate and rhythm, no murmurs rubs or gallops Abdomen: Soft, nontender, nondistended, no guarding, no rebound Back: No CVA tenderness Extremities: No clubbing cyanosis or edema Neurologic: No focal neurologic deficits, cranial nerves 2-12 intact, strength is 5/5 bilaterally Skin: No rash Course Course Course Narrative: I discussed all results with the patient. Workup is complete. Low potassium levels. He will start with some oral supplementation at this time followed by potassium rich foods. He will contact his primary care provider to have an add itional lab tests taken by next week. He does have an appointment with his urologist coming up in November. I have recommended closer follow-up. I will prescribe the patient tamsulosin and Pyridium. Medications Administered Discontinued Medications Generic Name Dose Route Start Last Admin Trade Name Freq PRN Reason Stop Dose Admin Potassium Chloride 40 meq 10/27/22 12:05 10/27/22 12:21 Potassium Chloride Packet 20 Meq Packet PO 10/27/22 12:06 40 meq ONCE ONE Administration Medical Decision Making Medical Decision Making [facility] Narrative: Patient presents with complaints of urinary urgency, frequency dysuria and hesitancy. His abdominal exam is benign. Differential diagnosis includes urinary tract infection, prostatitis, BPH hyperactive bladder, bladder atony. Will check urinalysis. Will check a postvoid residual. Differential Diagnosis Differential Diagnoses: The differential diagnosis associated with the presentation includes (See above) Admission/Observation Consideration of admission/observation: Escalation of care including admission/observation considered Lab Data [facility] Lab Attestation statement: I reviewed the patient's lab results. 10/27/22 07:49 10/27/22 07:50 Labs: Lab Results 10/27/22 10/27/22 10/27/22 Range/Units 07:49 07:50 09:23 WBC 3.8 L (4.8-10.8) X10*3/uL RBC 5.53 (4.60-5.80) X10*6/uL Hgb 16.6 (14.0-18.0) g/dl Hct 48.7 (42.0-52.0) % MCV 88.1 (80.0-98.0) fL MCH 30.0 (27.0-33.0) pg MCHC 34.1 (31.0-36.0) g/dl RDW 12.9 (11.0-16.0) % Plt Count 164 (160-400) X10*3/uL MPV 9.5 (9.4-12.4) fL Immature Gran % (Auto) 0.3 (0.0-0.4) % Neut % (Auto) 39.5 L (45-73) % Lymph % (Auto) 43.4 H (20-40) % Dawes % (Auto) 12.2 H (2-11) % Eos % (Auto) 3.5 (0-4) % Baso % (Auto) 1.1 (0-2) % Lymph # (Auto) 1.6 (1.2-4.9) X10*3/uL [place] # (Auto) 0.5 (0.1-1.2) X10*3/uL Eos # (Auto) 0.1 (0.0-0.4) X10*3/uL Baso # (Auto) 0.0 (0.0-0.2) X10*3/uL Abs Immat Gran (auto) 0.01 (0.00-0.03) X10*3/uL Absolute Neuts (auto) 1.5 L (2.0-8.3) x10*3/uL Absolute Nucleated RBC 0.000 (0.0-0.012) X10*3/uL Nucleated RBC % (auto) 0.0 (0.0-0.2) /100WBC Sodium 141 (135-145) mmol/L Potassium 3.2 L (3.3-5.1) mmol/L Chloride 104 (96-108) mmol/L Carbon Dioxide 28 (22-29) mmol/L Anion Gap 12 (12-20) BUN 22 H (9-16) mg/dL Creatinine 0.99 (0.5-1.4) mg/dL Estim Creat Clear Calc 80.4 Estimated GFR > 60 Random Glucose 104 (60-115) mg/dL Calcium 9.3 (8.4-10.2) mg/dL Total Bilirubin 0.8 (0.0-1.0) mg/dL AST 19 (5-37) U/L ALT 29 (0-40) U/L Alkaline Phosphatase 76 (39-117) U/L Total Protein 7.0 (6.5-8.0) g/dL Albumin 4.2 (3.5-5.0) g/dL Urine Color Yellow Urine Appearance Clear Urine pH 7.0 (5.0-9.0) Ur Specific [place] 1.020 (1.005-1.025) Urine Protein Negative (Neg-Trace) mg/dL Urine Glucose (UA) Negative (Negative) mg/dL Urine Ketones Negative (Negative) mg/dL Urine Blood Negative (Negative) Urine Nitrite Negative (Negative) Ur Leukocyte Esterase Negative (Negative) No evidence of urinary tract infection. He does have hypokalemia. Will treat this. Discharge Plan Discharge Clinical Impression: Dysuria, Hypokalemia Patient Disposition: Home, Self-Care Instructions: Prostatitis (ED), Potassium Content of Foods List (ED), Dysuria (ED) Prescriptions: New phenazopyridine [Pyridium] 100 mg tablet 100 mg PO TID Qty: 6 0RF tamsulosin 0.4 mg capsule 0.4 mg PO DAILY Qty: 14 0RF No Action prednisone 20 mg tablet 20 mg PO DAILY 7 Days Qty: 7 0RF magnesium citrate Solution 150 ml PO DAILY Qty: 296 0RF levothyroxine 112 mcg tablet 112 mcg PO DAILY atorvastatin 20 mg tablet 20 mg PO DAILY omeprazole 40 mg capsule,delayed release(DR/EC) 40 mg PO DAILY acetaminophen 500 mg tablet 500 mg PO Q6H PRN hydrochlorothiazide 25 mg tablet 25 mg PO DAILY lisinopril 20 mg tablet 20 mg PO DAILY pyridoxine (vitamin B6) 100 mg tablet 100 mg PO DAILY 90 Days Qty: 90 1RF tolterodine 4 mg capsule,extended release 24hr 4 mg PO DAILY 90 Days Qty: 90 1RF tamsulosin 0.4 mg capsule 0.4 mg PO BEDTIME 90 Days Qty: 90 1RF Referrals: Farhana Helton MD [Physician] - 1 week [place],[facility] [Primary Care Provider] - Print Language: Kiswahili
[2022-10-27] MEDS: Potassium Chloride Packet 20 MEQ PACKET 40 MEQ PO (12:21)
== END 2022-10-27 12:43 | disposition home or self-care (01) ==
PROVIDERS: Emergency Provider Emergency Medicine
DX: R33.9 Retention of urine, unspecified (principal); E87.6 Hypokalemia; Z79.899 Other long term (current) drug therapy
CPT/HCPCS: 36415; 51798; 80053; 81003; 85025; 99283; 99285

== ENCOUNTER 2022-11-10 07:48 | Outpatient (REF) | payer OTHER, SELFPAY ==
--- NOTE | ~2022-11-10 | US_ITS ---
EXAMINATION: US RETROPERITONEAL LIMITED (RENAL ONLY) CLINICAL INFORMATION: Calculus of kidney. COMPARISON: CT abdomen and pelvis 09/22/2022. Renal ultrasound on 10/14/2021. TECHNIQUE: Real-time imaging of the kidneys. FINDINGS: RIGHT KIDNEY: 10.6 x 5.3 x 4.9 cm (SAG x AP x TRV). The kidney is normal in size, contour, and echogenicity. Nonobstructing stones measuring up to 4 mm, previously 5 mm with a new Renal cortical thickness is normal. No hydronephrosis. 3 mm midpole renal stone previously 5 mm and a new 4 mm lower pole renal stone. LEFT KIDNEY: 11.7 x 5.5 x 4.6 cm (SAG x AP x TRV). The kidney is normal in size, contour, and echogenicity. Renal cortical thickness is normal. No focal parenchymal lesions or hydronephrosis. A 2 mm upper pole renal stone new from prior. US/US renal BI IMPRESSION: Bilateral nonobstructing renal stones measuring up to 4 mm on the right and 2 mm on the left, some new from prior ultrasound.
== END 2022-11-10 07:49 | disposition home or self-care (01) ==
LOC: HO.US 07:48
PROVIDERS: Visit Provider Urology
DX: N20.0 Calculus of kidney (principal)
CPT/HCPCS: 76775

== ENCOUNTER 2022-11-24 11:33 | Outpatient (REF) | payer OTHER, SELFPAY ==
[2022-11-24 13:54] LABS: Estimated Average Glucose 108 mg/dL; Hemoglobin A1C 150.1491 umol/L; Hemoglobin A1c % 5.4 %
[2022-11-24 14:34] LABS: Cholesterol 222 mg/dL; HDL Cholesterol 47 mg/dL; LDL Cholesterol Calculated 152 mg/dl; TSH reflex Free T4 3.69 uIU/mL (0.32-4.0); Triglycerides 116 mg/dL
== END 2022-11-24 11:34 | disposition home or self-care (01) ==
LOC: HO.HHCL 11:33
PROVIDERS: Visit Provider General Practice
DX: Z71.3 Dietary counseling and surveillance (principal)
CPT/HCPCS: 36415; 80061; 83036; 84443

== ENCOUNTER 2022-12-01 14:33 | Outpatient (AMB) | payer OTHER, SELFPAY ==
--- NOTE | 2022-12-01 14:37 | A.OFFVIS_ITS ---
Intake Intake Visit Reasons: 6M US(SET) Intake Note: Patient is present for Follow Up Ultrasound Urology Med: Vitamin B6, Tamsulosin, Tolterodine Antibiotic Allergy: None Blood Thinner: None Pharmacy: [facility] Allergies No Known Allergies [No Known Allergies*] Allergy (Verified 06/02/22 14:13) HPI HPI Comments History of Present Illness Details Octavio is a very pleasant male. He is seen for the following urologic conditions - nephrolithiasis - lower urinary tract symptoms Kazakh translation provided in office by qualified certified medical aide Marked urgency with nocturia and weak stream Current medications include tolterodine urinary urge, tamsulosin Try stopping tolterodine in doubling up tamsulosin Will check cystoscopy again as may need further intervention for unstable bladder Lower urinary tract symptoms Current medication - trial tolterodine Prior medications include , tamsulosin Prior include oxybuytinin Intervention TURP PSA - 12/01 0.5 Cystoscopy - 04/02 from bladder neck, mild trabecul ation Nephrolithiasis They are here for - further evaluation for nephrolithiasi s Urolithiasis was diagnosed - ongoing The patient previously had kidney stones whose composition w - unknown Laboratory investigations include - April 2020 calcium 9.2 24 Hour urine evaluation - none on file. Prior treatment(s) include - observation Prior imaging includes - a CT - stone protocol April 2020 2 s mall stones - 03/02 renal ultrasound multiple puncta te calcifications bilateral - 12/01 renal ultrasound several small st ones bilateral Current therapeutic plan will be - to continue with imaging surveillance PFSH Medical History Bladder neck contracture Elevated cholesterol Hemorrhoids HTN (hypertension) Hx of renal calculi Hypothyroidism Rhinitis Surgical History History of prostate surgery History of surgery Hx of colonoscopy Family History Sister Lung cancer Kidney carcinoma Other Family history non-contributory Social History Alcohol intake: unknown Patient Tobacco Use Status: Never used Tobacco Review of Systems Const Denies chills and Denies fever(s) Card Reports no additional complaints and Denies syncope Resp Denies cough GI Denies abdominal pain and Denies heartburn Reports as per HPI and Denies change in libido Neuro Denies syncope Psych Denies change in libido Endo Denies change in libido Physical Exam Const General: cooperative, healthy appearing, comfortable and no acute distress Orientation/consciousness: patient oriented x3 HEENT Face and sinus: Yes normal facial exam Mouth: moist mucous membranes Neck Neck: Yes normal visual inspection, Yes full ROM and Yes trachea midline Chest Chest palpation & inspection: normal inspection of the chest Resp Effort & Inspection: normal respiratory effort, able to speak in complete sentences and no respiratory distress GI Inspection: Yes normal to inspection Back/Spine/Pelvis Cervical Spine: normal cervical lordosis Thoracic/Lumbar Spine: thoracic and lumbar spine normal to inspection Skin General skin exam: no rashes or lesions noted Neuro General: patient oriented x3, gait normal, tone normal and moves all extremities Extrem General: Yes normal to inspection and Yes capillary refill normal Results AMB Urinalysis, Automated UA Leukoctes 0 Britni/uL Last Edit by Deedee Paulson [facility] on 12/01/22 14:46 UA Nitrite Negative Last Edit by Deedee Paulson [facility] on 12/01/22 14:46 UA Urobilinogen 0.2 mg/dL Last Edit by Deedee Paulson [facility] on 12/01/22 14:4 6 UA Protein 15 mg/dL Last Edit by Deedee Paulson [facility] on 12/01/22 14:46 UA pH 6.0 Last Edit by Deedee Paulson [facility] on 12/01/22 14:46 UA Blood 10 [place]/uL Last Edit by Deedee Paulson [facility] on 12/01/22 14:46 UA Specific [place] 1.025 Last Edit by Deedee Paulson [facility] on 12/01/22 14: 46 UA Ketone Negative Last Edit by Deedee Paulson [facility] on 12/01/22 14:46 UA Bilirubin 0 mg/dL Last Edit by Deedee Paulson [facility] on 12/01/22 14:46 UA Glucose 0 mg/dL Last Edit by Deedee Paulson [facility] on 12/01/22 14:46 Results Reviewed Results Reviewed: Laboratory Last Values Urine pH (Auto) 6.0 12/01/22 14:44 Specific [place] (Auto) 1.025 12/01/22 14:44 Urine Protein (Auto) 15 mg/dL 12/01/22 14:44 Glucose (UA)(Auto) 0 mg/dL 12/01/22 14:44 Urine Ketones (Auto) Negative 12/01/22 14:44 Urine Blood (Auto) 10 [place]/uL 12/01/22 14:44 Urine Nitrite (Auto) Negative 12/01/22 14:44 Urine Bilirubin (Auto) 0 mg/dL 12/01/22 14:44 Urine Urobilinogen (Auto) 0.2 mg/dL 12/01/22 14:44 Leukocyte Esterase (Auto) 0 Britni/uL 12/01/22 14:44 Assessment & Plan Assessment & Plan (1) Urinary urgency: Code(s): R39.15 - Urgency of urination (2) Nocturia more than twice per night: Code(s): R35.1 - Nocturia (3) Weak urinary stream: Code(s): R39.12 - Poor urinary stream Plan Trial high-dose alpha-salomon Orders: Orders AMB Urinalysis Automated 12/01/22 Z13.9 - Encounter for screening, unspecified Patient Instructions: Imaging studies, laboratory and physical exam results were discussed and reviewed in detail. No major barriers to patient understanding were identified. An opportunity to ask questions regarding the treatment plan was provided. All questions were answered. The patient expressed understanding and agreement with the above treatment plan. The patient is aware they should contact our office by phone for worsening of their current condition or the appearance of new urologic symptoms. Compliance is encouraged with any medications and followup testing that is ordered. It is a privilege to participate in the urologic care of your patient. If you have any questions or concerns regarding treatment for the above conditions, or other urologic issues, please do not hesitate to contact me. The office telephone contact is [phone]. This note is constructed using voice recognition software. While every effort has been made to ensure accuracy small boat engineer errors may have been included. Yours sincerely, Dr Sergio Koenig MD, [facility] - Urology Providers of Expert, Compassionate Care for the Genitourinary System Coding Level of Care Code Est Pt Level 4 (89610) Diagnoses Urinary urgency R39.15 Nocturia more than twice per night R35.1 Weak urinary stream R39.12
== END 2022-12-01 15:06 | disposition home or self-care (01) ==
PROVIDERS: PCP General Practice; Visit Provider Urology
DX: R39.15 Urgency of urination (principal); R35.1 Nocturia; R39.12 Poor urinary stream
CPT/HCPCS: 99214

== ENCOUNTER → 2022-12-01 14:33 | Outpatient (BNVA) | payer OTHER, SELFPAY | PROVIDERS: Visit Provider Urology | DX: R39.15 Urgency of urination (principal); R35.1 Nocturia; R39.12 Poor urinary stream | CPT/HCPCS: 81003; 99212 ==

== ENCOUNTER 2023-01-12 10:57 | Outpatient (AMB) | payer OTHER, SELFPAY ==
--- NOTE | 2023-01-12 11:00 | MHC.OFFVIS ---
Intake Intake Visit Reasons: Cysto(Bladder Outlet Obs) Intake Note: Patient is Present for Cystoscopy Urology Med: Vitamin B6, Tamsulosin, Tolterodine Antibiotic Allergy: None Blood Thinner: None Pharmacy: [facility] URO- G Disposable Cystoscope lot: [id number] exp:08/23/2024 Allergies No Known Allergies [No Known Allergies*] Allergy (Verified 01/12/23 11:04) Medication List - Last Reconciled 01/12/23 by Sergio Koenig MD acetaminophen 500 mg PO Q6H PRN atorvastatin 20 mg PO DAILY bethanechol chloride 50 mg PO BID 30 days fesoterodine ER 8 mg PO DAILY 30 days hydrochlorothiazide 25 mg PO DAILY levothyroxine 112 mcg PO DAILY lisinopril 20 mg PO DAILY magnesium citrate 150 mL PO DAILY omeprazole 40 mg PO DAILY phenazopyridine (Pyridium) 100 mg PO TID 6 doses prednisone 20 mg PO DAILY 7 days pyridoxine (vitamin B6) 100 mg PO DAILY 90 days HPI HPI Comments History of Present Illness Details Octavio is a very pleasant male. He is seen for the following urologic conditions - nephrolithiasis - lower urinary tract symptoms Luxembourger translation provided in office by qualified medical technicians Some improvement with combination bethanechol oxybutynin Will switch from oxybutynin to Toviaz 2 month follow-up Prior Cystoscopy with open bladder neck Has bladder instability with impaired contractility Previously failed oxybutynin, failed tolterodine, failed tamsulosin Lower urinary tract symptoms Current medication - trial Toviaz in addition to bethanechol Prior medications include , tamsulosin, tolterodine and oxybutynin Prior include oxybuytinin Intervention TURP PSA - 12/01 0.5 Cystoscopy - 04/02 open bladder neck, mild trabeculation Nephrolithiasis They are here for - further evaluation for nephrolithiasis Urolithiasis was diagnosed - ongoing The patient previously had kidney stones whose composition w - unknown Laboratory investigations include - April 2020 calcium 9.2 24 Hour urine evaluation - none on file. Prior treatment(s) include - observation Prior imaging includes - a CT - stone protocol April 2020 2 small stones - 03/02 renal ultrasound multiple punctate calcifications bilateral - 12/01 renal ultrasound several small stones bilateral - 12/02 renal ultrasound small stones right side Current therapeutic plan will be - to continue with imaging surveillance [facility] Medical History Hx of renal calculi Elevated cholesterol HTN (hypertension) Rhinitis Hypothyroidism Hemorrhoids Bladder neck contracture Surgical History History of prostate surgery Hx of colonoscopy History of surgery Family History Sister Lung cancer Kidney carcinoma Other Family history non-contributory Social History Alcohol intake: unknown Patient Tobacco Use Status: Never used Tobacco Review of Systems Const Denies chills and Denies fever(s) Card Reports no additional complaints and Denies syncope Resp Denies cough GI Denies abdominal pain and Denies heartburn Reports as per HPI and Denies change in libido Neuro Denies syncope Psych Denies change in libido Endo Denies change in libido Physical Exam Const General: cooperative, healthy appearing, comfortable and no acute distress Orientation/consciousness: patient oriented x3 HEENT Face and sinus: Yes normal facial exam Mouth: moist mucous membranes Neck Neck: Yes normal visual inspection, Yes full ROM and Yes trachea midline Chest Chest palpation & inspection: normal inspection of the chest Resp Effort & Inspection: normal respiratory effort, able to speak in complete sentences and no respiratory distress GI Inspection: Yes normal to inspection Back/Spine/Pelvis Cervical Spine: normal cervical lordosis Thoracic/Lumbar Spine: thoracic and lumbar spine normal to inspection Skin General skin exam: no rashes or lesions noted Neuro General: patient oriented x3, gait normal, tone normal and moves all extremities Extrem General: Yes normal to inspection and Yes capillary refill normal Office Procedures Cystoscopy Consent Discussed risk and benefit or proposed procedure with the patient. Information consent for procedure given to the patient. Discussed technical aspects, risks, benefits and alternatives in full. Addressed all of the patient's questions and concerns regarding the procedure. The patient demonstrated knowledge and understanding. They wish to proceed with this procedure. Preparation The patient was prepped in the usual manner. A photovoltaic subcontractor was present and in the room. Genitalia was prepped with betadine solution in a sterile manner. Lidocaine Jelly 2% was placed into the urethra and 16Fr flexible Olympus cystoscope was inserted into the meatus after adequate lubrication. [id number] DISPOSABLE SCOPE URO-G FLEXIBLE SCOPE Procedure code (CPT) selection complete Office Meds lidocaine HCl 2 % mucosal jelly in applicator Performing Provider: Sergio Koenig MD [place] [facility] Administered by: Katarina Lambert RN on 01/12/23 11:37 Dose Route Admin Location Dispensed Lot Number Expiration Date NDC Forensic Document Examiner 10 mL intra-urethral 10 mL nitrofurantoin monohydrate/macrocrystals 100 mg capsule Performing Provider: Sergio Koenig MD Performing [place] [facility] Administered by: Katarina Lambert RN on 01/12/23 11:37 Dose Route Admin Location Dispensed Lot Number Expiration Date NDC Forensic Document Examiner 100 mg PO 1 cap naproxen 500 mg tablet Performing Provider: Sergio Koenig MD Performing [place] [facility] Administered by: Katarina Lambert RN on 01/12/23 11:37 Dose Route Admin Location Dispensed Lot Number Expiration Date NDC Forensic Document Examiner 500 mg PO 1 tab Results AMB Urinalysis, Automated UA Leukoctes 0 Britni/uL Last Edit by Deedee Paulson COUNT [facility]CLUDES THE [facility] on 01/12/23 11:14 UA Nitrite Negative Last Edit by Deedee Paulson COUNT INCLUDES THE [facility] on 01/12/23 11:14 UA Urobilinogen 0.2 mg/dL Last Edit by Deedee Paulson COUNT INCLUDES THE [facility] on 01/12/23 11:14 UA Protein 30 mg/dL Last Edit by Deedee Paulson COUNT INCLUDES THE [facility] on 01/12/23 11:14 UA pH 6.0 Last Edit by Deedee Paulson [facility]CLUDES THE [facility] on 01/12/23 11:14 UA Blood 0 Colten/uL Last Edit by Deedee Paulson COUNT INCLUDES THE [facility] on 01/12/23 11:14 UA Specific [place] 1.015 Last Edit by Deedee Paulson COUNT INCLUDES THE [facility] on 01/12/23 11:14 UA Ketone Negative Last Edit by Deedee Paulson COUNT INCLUDES THE [facility] on 01/12/23 11:14 UA Bilirubin 0 mg/dL Last Edit by Deedee Paulson COUNT [facility]CLUDES THE [facility] on 01/12/23 11:14 UA Glucose 0 mg/dL Last Edit by Deedee Paulson COUNT INCLUDES THE [facility] on 01/12/23 11:14 Results Reviewed Results Reviewed: Laboratory Last Values Urine pH (Auto) 6.0 01/12/23 11:05 Specific [place] (Auto) 1.015 01/12/23 11:05 Urine Protein (Auto) 30 mg/dL 01/12/23 11:05 Glucose (UA)(Auto) 0 mg/dL 01/12/23 11:05 Urine Ketones (Auto) Negative 01/12/23 11:05 Urine Blood (Auto) 0 Colten/uL 01/12/23 11:05 Urine Nitrite (Auto) Negative 01/12/23 11:05 Urine Bilirubin (Auto) 0 mg/dL 01/12/23 11:05 Urine Urobilinogen (Auto) 0.2 mg/dL 01/12/23 11:05 Leukocyte Esterase (Auto) 0 Britni/uL 01/12/23 11:05 Assessment & Plan Assessment & Plan (1) Urinary urgency: Code(s): R39.15 - Urgency of urination (2) Bladder outlet obstruction: Code(s): N32.0 - Bladder-neck obstruction (3) Nephrolithiasis: Code(s): N20.0 - Calculus of kidney (4) Nocturia more than twice per night: Code(s): R35.1 - Nocturia Plan Two month follow-up Orders: Orders AMB Post Void Residual by ultrasound 01/12/23 N32.0 - Bladder-neck obstruction AMB Urinalysis Automated 01/12/23 Z13.9 - Encounter for screening, unspecified, N32.0 - Bladder-neck obstruction AMB Cystoscopy 01/12/23 R35.1 - Nocturia Medications: New fesoterodine ER 8 mg PO DAILY 30 tabs 1RF 30 days N32.0 - Bladder-neck obstruction, N39.41 - Urge incontinence bethanechol chloride 50 mg PO BID 60 tabs 1RF 30 days N32.0 - Bladder-neck obstruction, N39.0 - Urinary tract infection, site not specified Discontinued tamsulosin Discontinued Reason: Doctor's Order 0.4 mg PO DAILY 14 caps 0RF tolterodine ER Discontinued Reason: Doctor's Order 4 mg PO DAILY 90 days 90 caps 1RF R39.15 - Urgency of urination tamsulosin Discontinued Reason: Doctor's Order 0.4 mg PO BEDTIME 90 days 90 caps 1RF N40.1 - Benign prostatic hyperplasia with lower urinary tract symptoms, R35.1 - Nocturia Patient Instructions: Imaging studies, laboratory and physical exam results were discussed and reviewed in detail. No major barriers to patient understanding were identified. An opportunity to ask questions regarding the treatment plan was provided. All questions were answered. The patient expressed understanding and agreement with the above treatment plan. The patient is aware they should contact our office by phone for worsening of their current condition or the appearance of new urologic symptoms. Compliance is encouraged with any medications and followup testing that is ordered. It is a privilege to participate in the urologic care of your patient. If you have any questions or concerns regarding treatment for the above conditions, or other urologic issues, please do not hesitate to contact me. The office telephone contact is [phone]. This note is constructed using voice recognition software. While every effort has been made to ensure accuracy thoracic medicine specialist errors may have been included. Yours sincerely, Dr Sergio Koenig MD, [facility] - Urology Providers of Expert, Compassionate Care for the Genitourinary System Coding Level of Care Code Est Pt Level 4 (35752) Diagnoses Urinary urgency R39.15 Bladder outlet obstruction N32.0 Nephrolithiasis N20.0 Nocturia more than twice per night R35.1 CPT Codes Cystoscopy - CPT: 16010-Cvglebflou ([id number])
== END 2023-01-12 12:01 | disposition home or self-care (01) ==
PROVIDERS: Visit Provider Urology
DX: R39.15 Urgency of urination (principal); N32.0 Bladder-neck obstruction; N20.0 Calculus of kidney; R35.1 Nocturia
CPT/HCPCS: 52000; 99214

== ENCOUNTER → 2023-01-12 10:57 | Outpatient (BNVA) | payer OTHER, SELFPAY | PROVIDERS: Visit Provider Urology | DX: R39.15 Urgency of urination (principal); N32.0 Bladder-neck obstruction; R35.1 Nocturia; N20.0 Calculus of kidney | CPT/HCPCS: 52000; 81003; 99212 ==

== ENCOUNTER 2023-03-17 10:15 | Outpatient (REF) | payer OTHER, SELFPAY ==
[2023-03-17 11:30] LABS: Prostate Specific Antigen 0.36 ng/mL (<0.05-4.0)
== END 2023-03-17 10:16 | disposition home or self-care (01) ==
LOC: HO.LAB 10:15
PROVIDERS: PCP General Practice; Visit Provider Urology
DX: N32.0 Bladder-neck obstruction (principal)
CPT/HCPCS: 36415; 84153

== ENCOUNTER 2023-03-24 08:38 | Outpatient (AMB) | payer OTHER, SELFPAY ==
--- NOTE | 2023-03-24 08:41 | MHC.OFFVIS ---
Intake Intake Visit Reasons: 2m/PSA(set) Intake Note: Patient is Present for Follow Up PSA/PVR Urology Medication: Bethanechol, Fesoterodine, Vitamin B6 Antibiotic Allergies: None Blood Thinners: None PVR: 0 Compliants: Allergies No Known Allergies [No Known Allergies*] Allergy (Verified 03/24/23 08:46) HPI HPI Comments History of Present Illness Details Octavio is a very pleasant male. He is seen for the following urologic conditions - nephrolithiasis - lower urinary tract symptoms Chinese translation provided in office by qualified biomedical photographer Some improvement with combination bethanechol and Toviaz Will admit Juanitamani Discussed bladder pacemaker and stent 2 month follow-up Prior Cystoscopy with open bladder neck Has bladder instability with impaired contractility Previously failed oxybutynin, failed tolterodine, failed tamsulosin Lower urinary tract symptoms Current medication - trial Toviaz in addition to bethanechol Prior medications include , tamsulosin, tolterodine and oxybutynin Prior include oxybuytinin Intervention TURP PSA - 12/01 0.5 Cystoscopy - 04/02 open bladder neck, mild trabeculation Nephrolithiasis They are here for - further evaluation for nephrolithiasis Urolithiasis was diagnosed - ongoing The patient previously had kidney stones whose composition w - unknown Laboratory investigations include - April 2020 calcium 9.2 24 Hour urine evaluation - none on file. Prior treatment(s) include - observation Prior imaging includes - a CT - stone protocol April 2020 2 small stones - 03/02 renal ultrasound multiple punctate calcifications bilateral - 12/01 renal ultrasound several small stones bilateral - 12/02 renal ultrasound small stones right side Current therapeutic plan will be - to continue with imaging surveillance [facility] Medical History Hx of renal calculi Elevated cholesterol HTN (hypertension) Rhinitis Hypothyroidism Hemorrhoids Bladder neck contracture Surgical History History of prostate surgery Hx of colonoscopy History of surgery Family History Sister Lung cancer Kidney carcinoma Other Family history non-contributory Social History Alcohol intake: unknown Patient Tobacco Use Status: Never used Tobacco Review of Systems Const Denies chills and Denies fever(s) Card Reports no additional complaints and Denies syncope Resp Denies cough GI Denies abdominal pain and Denies heartburn Reports as per HPI and Denies change in libido Neuro Denies syncope Psych Denies change in libido Endo Denies change in libido Physical Exam Const General: cooperative, healthy appearing, comfortable and no acute distress Orientation/consciousness: patient oriented x3 HEENT Face and sinus: Yes normal facial exam Mouth: moist mucous membranes Neck Neck: Yes normal visual inspection, Yes full ROM and Yes trachea midline Chest Chest palpation & inspection: normal inspection of the chest Resp Effort & Inspection: normal respiratory effort, able to speak in complete sentences and no respiratory distress GI Inspection: Yes normal to inspection Back/Spine/Pelvis Cervical Spine: normal cervical lordosis Thoracic/Lumbar Spine: thoracic and lumbar spine normal to inspection Skin General skin exam: no rashes or lesions noted Neuro General: patient oriented x3, gait normal, tone normal and moves all extremities Extrem General: Yes normal to inspection and Yes capillary refill normal Office Procedures Post Void Residual Post Residual Void Post Void Residual (PVR): 0 [id number] Void Residual by ultrasound Results AMB Urinalysis, Automated UA Leukoctes 0 Britni/uL Last Edit by DUARTE Huffman on 03/24/23 08:54 UA Nitrite Negative Last Edit by Deedee Paulson [facility] on 03/24/23 08:54 UA Urobilinogen 0.2 mg/dL Last Edit by Deedee Paulson [facility] on 03/24/23 08:54 UA Protein 15 mg/dL Last Edit by Deedee Paulson [facility] on 03/24/23 08:54 UA pH 6.0 Last Edit by Deedee Paulson [facility] on 03/24/23 08:54 UA Blood 0 Colten/uL Last Edit by Deedee Paulson [facility] on 03/24/23 08:54 UA Specific [place] 1.025 Last Edit by Deedee Paulson [facility] on 03/24/23 08:54 UA Ketone Negative Last Edit by Deedee Paulson [facility] on 03/24/23 08:54 UA Bilirubin 0 mg/dL Last Edit by Deedee Paulson [facility] on 03/24/23 08:54 UA Glucose 0 mg/dL Last Edit by DUARTE Huffman on 03/24/23 08:54 Results Reviewed Results Reviewed: Laboratory Last Values Urine pH (Auto) 6.0 03/24/23 08:45 Specific [place] (Auto) 1.025 03/24/23 08:45 Urine Protein (Auto) 15 mg/dL 03/24/23 08:45 Glucose (UA)(Auto) 0 mg/dL 03/24/23 08:45 Urine Ketones (Auto) Negative 03/24/23 08:45 Urine Blood (Auto) 0 Colten/uL 03/24/23 08:45 Urine Nitrite (Auto) Negative 03/24/23 08:45 Urine Bilirubin (Auto) 0 mg/dL 03/24/23 08:45 Urine Urobilinogen (Auto) 0.2 mg/dL 03/24/23 08:45 Leukocyte Esterase (Auto) 0 Britni/uL 03/24/23 08:45 Assessment & Plan Assessment & Plan (1) Overactive bladder: Code(s): N32.81 - Overactive bladder (2) Bladder outlet obstruction: Code(s): N32.0 - Bladder-neck obstruction (3) Nocturia more than twice per night: Code(s): R35.1 - Nocturia Plan Trial addition of Myrbetriq Orders: Orders AMB Post Void Residual by ultrasound Today R35.1 - Nocturia AMB Urinalysis Automated Today Z13.9 - Encounter for screening, unspecified Medications: New mirabegron ER (Myrbetriq) 25 mg PO DAILY 30 tabs 1RF 30 days N30.10 - Interstitial cystitis (chronic) without hematuria, N32.81 - Overactive bladder, R35.1 - Nocturia, R39.15 - Urgency of urination Refilled bethanechol chloride 50 mg PO BID 60 tabs 1RF 30 days N32.0 - Bladder-neck obstruction, N39.0 - Urinary tract infection, site not specified fesoterodine ER 8 mg PO DAILY 30 tabs 1RF 30 days N32.0 - Bladder-neck obstruction, N39.41 - Urge incontinence Patient Instructions: Imaging studies, laboratory and physical exam results were discussed and reviewed in detail. No major barriers to patient understanding were identified. An opportunity to ask questions regarding the treatment plan was provided. All questions were answered. The patient expressed understanding and agreement with the above treatment plan. The patient is aware they should contact our office by phone for worsening of their current condition or the appearance of new urologic symptoms. Compliance is encouraged with any medications and followup testing that is ordered. It is a privilege to participate in the urologic care of your patient. If you have any questions or concerns regarding treatment for the above conditions, or other urologic issues, please do not hesitate to contact me. The office telephone contact is [phone]. This note is constructed using voice recognition software. While every effort has been made to ensure accuracy onion topper errors may have been included. Yours sincerely, Dr Sergio Koenig MD, [facility] - Urology Providers of Expert, Compassionate Care for the Genitourinary System Coding Level of Care Code Est Pt Level 4 (29607) Diagnoses Overactive bladder N32.81 Bladder outlet obstruction N32.0 Nocturia more than twice per night R35.1 CPT Codes Post Residual Void - PVR CPT Code: 20050-Ovux Void Residual by ultrasound ([id number])
== END 2023-03-24 09:10 | disposition home or self-care (01) ==
LOC: HO.HUSH 08:38
PROVIDERS: PCP General Practice; Visit Provider Urology
DX: N32.81 Overactive bladder (principal); N32.0 Bladder-neck obstruction; R35.1 Nocturia; Z13.9 Encounter for screening, unspecified
CPT/HCPCS: 99214

== ENCOUNTER → 2023-03-24 08:38 | Outpatient (BNVA) | payer OTHER, SELFPAY | PROVIDERS: PCP General Practice; Visit Provider Urology | DX: N32.81 Overactive bladder (principal); N32.0 Bladder-neck obstruction; R35.1 Nocturia | CPT/HCPCS: 51798; 81003; 99212 ==

== ENCOUNTER 2023-03-25 11:28 | Outpatient (REF) | payer OTHER, SELFPAY | END 2023-03-25 11:29 | disposition home or self-care (01) | LOC: HO.HHCLNP 11:28 | PROVIDERS: Visit Provider General Practice | DX: K27.9 Peptic ulcer, site unspecified, unspecified as acute or chronic, without hemorrhage or perforation (principal) | CPT/HCPCS: 87338 ==

== ENCOUNTER 2023-06-09 08:36 | Outpatient (AMB) | payer OTHER, SELFPAY ==
--- NOTE | 2023-06-09 08:45 | A.OFFVIS_ITS ---
Intake Intake Visit Reasons: 2M PVR/Med Review(Myrbetriq)Left vm to confirm Intake Note: Patient presents today for a follow-up on Myrbetriq Meds- Pyridium, B6, Mybetriq Allergies to Antibiotic- No Known Allergies Blood Thinner- None Post Void Residual: 26ml Rn Admissions Required: No Accompanied by: Self / Same As Patient Allergies No Known Allergies [No Known Allergies*] Allergy (Verified 06/09/23 09:06) Medication List - Last Reviewed 06/09/23 by Katja Bassett CMA atorvastatin 20 mg PO DAILY bethanechol chloride 50 mg PO BID 30 days fesoterodine ER 8 mg PO DAILY 90 days hydrochlorothiazide 25 mg PO DAILY levothyroxine 112 mcg PO DAILY lisinopril 20 mg PO DAILY magnesium citrate 150 mL PO DAILY mirabegron ER (Myrbetriq) 25 mg PO DAILY 90 days omeprazole 40 mg PO DAILY phenazopyridine (Pyridium) 100 mg PO TID 6 doses prednisone 20 mg PO DAILY 7 days pyridoxine (vitamin B6) 100 mg PO DAILY 90 days HPI HPI Comments History of Present Illness Details Octavio is a very pleasant male. He is seen for the following urologic conditions - nephrolithiasis - lower urinary tract symptoms Czech translation provided in office by qualified medical supervisor Evaluation of lower urinary tract intervention. Has been on combination bethanechol, Toviaz, Myrbetriq Has been successful Will give six-month follow-up Previously discussed bladder pacemaker Prior Cystoscopy with open bladder neck Has bladder instability with impaired contractility Previously failed oxybutynin, failed tolterodine, failed tamsulosin Lower urinary tract symptoms Current medication - trial Toviaz in addition to bethanechol Prior medications include , tamsulosin, tolterodine and oxybutynin Prior include oxybuytinin Intervention TURP PSA - 12/01 0.5 Cystoscopy - 04/02 open bladder neck, mild trabecul ation Nephrolithiasis They are here for - further evaluation for nephrolithiasi s Urolithiasis was diagnosed - ongoing The patient previously had kidney stones whose composition w - unknown Laboratory investigations include - April 2020 calcium 9.2 24 Hour urine evaluation - none on file. Prior treatment(s) include - observation Prior imaging includes - a CT - stone protocol April 2020 2 s mall stones - 03/02 renal ultrasound multiple puncta te calcifications bilateral - 12/[address] renal ultrasound several small st ones bilateral - 12/02 renal ultrasound small stones rig ht side Current therapeutic plan will be - to continue with imaging surveillance PFSH Medical History Hx of renal calculi Elevated cholesterol HTN (hypertension) Rhinitis Hypothyroidism Hemorrhoids Bladder neck contracture Surgical History History of prostate surgery Hx of colonoscopy History of surgery Family History Sister Lung cancer Kidney carcinoma Other Family history non-contributory Social History Alcohol intake: unknown Patient Tobacco Use Status: Never used Tobacco Review of Systems Const Denies chills and Denies fever(s) Card Reports no additional complaints and Denies syncope Resp Denies cough GI Denies abdominal pain and Denies heartburn Reports as per HPI and Denies change in libido Neuro Denies syncope Psych Denies change in libido Endo Denies change in libido Physical Exam Const General: cooperative, healthy appearing, comfortable and no acute distress Orientation/consciousness: patient oriented x3 HEENT Face and sinus: Yes normal facial exam Mouth: moist mucous membranes Neck Neck: Yes normal visual inspection, Yes full ROM and Yes trachea midline Chest Chest palpation & inspection: normal inspection of the chest Resp Effort & Inspection: normal respiratory effort, able to speak in complete sentences and no respiratory distress GI Inspection: Yes normal to inspection Back/Spine/Pelvis Cervical Spine: normal cervical lordosis Thoracic/Lumbar Spine: thoracic and lumbar spine normal to inspection Skin General skin exam: no rashes or lesions noted Neuro General: patient oriented x3, gait normal, tone normal and moves all extremities Extrem General: Yes normal to inspection and Yes capillary refill normal Office Procedures Post Void Residual Post Residual Void Post Void Residual (PVR): 26 [id number] Void Residual by ultrasound Results AMB Urinalysis, Automated UA Leukoctes 0 Britni/uL Last Edit by Katja Bassett, [facility] on 06/09/23 09 :10 UA Nitrite Negative [facility] on 06/09/23 09: 10 UA Urobilinogen 0.2 mg/dL Last Edit by Katja Bassettcamden Bassett, [facility] on 4 09:10 UA Protein 15 mg/dL Last Edit by Katja Bassettcamden Bassett, [facility] on 06/09/23 09:1 0 UA pH 6.5 Last Edit by Katja Bassettcamden Bassett, [facility] on 06/09/23 09:10 UA Blood 0 Colten/uL Last Edit by Katja Bassettcamden Bassett, [facility] on 06/09/23 09:10 UA Specific Morley 1.015 Last Edit by Katja Bassettcamden Bassett, [facility] on 09:10 UA Ketone Negative Last Edit by Katja Bassettcamden Bassett, [facility] on 06/09/23 09:1 0 UA Bilirubin 0 mg/dL Last Edit [facility], [facility] on 06/09/23 09: 10 UA Glucose 0 mg/dL Last Edit [facility], [facility] on 06/09/23 09:10 Assessment & Plan Assessment & Plan (1) Overactive bladder: Code(s): N32.81 - Overactive bladder (2) Urinary urgency: Code(s): R39.15 - Urgency of urination (3) Nocturia more than twice per night: Code(s): R35.1 - Nocturia Plan Six-month follow-up Orders: Orders AMB Urinalysis Automated Today R33.9 - Retention of urine, unspecified AMB Post Void Residual by ultrasound Today R33.9 - Retention of urine, unspecified Medications: Changed From fesoterodine ER 8 mg PO DAILY 30 days 30 tabs 1RF N32.0 - Bladder-neck obstruction, N39.41 - Urge incontinence To fesoterodine ER 8 mg PO DAILY 90 days 90 tabs 1RF N32.0 - Bladder-neck obstruction, N39.41 - Urge incontinence From mirabegron ER (Myrbetriq) 25 mg PO DAILY 30 days 30 tabs 1RF N32.81 - Overactive bladder, R35.1 - Nocturia, R39.15 - Urgency of urination To mirabegron ER (Myrbetriq) 25 mg PO DAILY 90 days 90 tabs 1RF N32.81 - Overactive bladder, R35.1 - Nocturia, R39.15 - Urgency of urination Refilled bethanechol chloride 50 mg PO BID 30 days 60 tabs 1RF N32.0 - Bladder-neck obstruction, N39.0 - Urinary tract infection, site not specified Patient Instructions: Imaging studies, laboratory and physical exam results were discussed and reviewed in detail. No major barriers to patient understanding were identified. An opportunity to ask questions regarding the treatment plan was provided. All questions were answered. The patient expressed understanding and agreement with the above treatment plan. The patient is aware they should contact our office by phone for worsening of their current condition or the appearance of new urologic symptoms. Compliance is encouraged with any medications and followup testing that is ordered. It is a privilege to participate in the urologic care of your patient. If you have any questions or concerns regarding treatment for the above conditions, or other urologic issues, please do not hesitate to contact me. The office telephone contact is [phone]. This note is constructed using voice recognition software. While every effort has been made to ensure accuracy chamber worker errors may have been included. Yours sincerely, Dr Sergio Koenig MD, [facility] - Urology Providers of Expert, Compassionate Care for the Genitourinary System Coding Level of Care Code Est Pt Level 3 (02457) Diagnoses Overactive bladder N32.81 Urinary urgency R39.15 Nocturia more than twice per night R35.1 CPT Codes Post Residual Void - PVR CPT Code: 99768-Kaow Void Residual by ultrasound ([id number])
== END 2023-06-09 09:10 | disposition home or self-care (01) ==
PROVIDERS: PCP General Practice; Visit Provider Urology
DX: N32.81 Overactive bladder (principal); R39.15 Urgency of urination; R35.1 Nocturia; R33.9 Retention of urine, unspecified
CPT/HCPCS: 99213

== ENCOUNTER → 2023-06-09 08:36 | Outpatient (BNVA) | payer OTHER, SELFPAY | PROVIDERS: PCP General Practice; Visit Provider Urology | DX: N32.81 Overactive bladder (principal); R39.15 Urgency of urination; R35.1 Nocturia | CPT/HCPCS: 51798; 81003; 99212 ==

== ENCOUNTER 2023-12-08 08:48 | Outpatient (AMB) | payer OTHER, SELFPAY ==
--- NOTE | 2023-12-08 08:49 | A.OFFVIS_ITS ---
Intake Visit Reasons: 6M Follow Up-PVR Intake Note: Patient is Present for PVR/ Urology Med: Toviaz, Myrbetriq, Bethanechol,Vitamin B6 Antibiotic Allergy: None Blood Thinner: None Last PVR: 26mls Todays PVR: 0ml Last PSA- 0.36 Patient today is requesting refill on his current medications. Patient states that he has been having some urinary issues he would like to discuss with Dr. Koenig Human Resource Consultant Required: Yes Human Resource Consultant Language: Doweler Services: Human Resource Consultant Present Information Interpreted: clinical only Accompanied by: Self / Same As Patient Allergies No Known Allergies [No Known Allergies*] Allergy (Verified 12/08/23 08:51) Medication List - Last Reconciled 12/08/23 by Sergio Koenig MD atorvastatin 20 mg PO DAILY bethanechol chloride 50 mg PO BID 30 days fesoterodine ER 8 mg PO DAILY 90 days hydrochlorothiazide 25 mg PO DAILY levothyroxine 112 mcg PO DAILY lisinopril 20 mg PO DAILY magnesium citrate 150 mL PO DAILY mirabegron ER (Myrbetriq) 25 mg PO DAILY 90 days omeprazole 40 mg PO DAILY phenazopyridine (Pyridium) 100 mg PO TID 6 doses prednisone 20 mg PO DAILY 7 days pyridoxine (vitamin B6) 100 mg PO DAILY 90 days HPI Comments Details: Octavio is a very pleasant male. He is seen for the following urologic conditions - nephrolithiasis - lower urinary tract symptoms Nicaraguan translation provided in office by qualified biomedical engineering director Evaluation of lower urinary tract intervention. Has been on combination bethanechol, Toviaz, Myrbetriq Has frequency and nocturia x3 Did discuss InterStim versus Botox He will consider Prior Cystoscopy with open bladder neck Has bladder instability with impaired contractility - Previously failed oxybutynin, failed tolterodine, failed tamsulosin Lower urinary tract symptoms Current medication - trial Toviaz in addition to bethanechol Prior medications include , tamsulosin, tolterodine and oxybutynin Prior include oxybuytinin Intervention TURP PSA - 12/01 0.5 Cystoscopy - 04/02 open bladder neck, mild trabeculation Nephrolithiasis They are here for - further evaluation for nephrolithiasis Urolithiasis was diagnosed - ongoing The patient previously had kidney stones whose composition w - unknown Laboratory investigations include - April 2020 calcium 9.2 24 Hour urine evaluation - none on file. Prior treatment(s) include - observation Prior imaging includes - a CT - stone protocol April 2020 2 small stones - 03/02 renal ultrasound multiple punctate calcifications bilateral - 12/01 renal ultrasound several small stones bilateral - 12/02 renal ultrasound small stones right side Current therapeutic plan will be - to continue with imaging surveillance [facility] Medical History Hx of renal calculi Elevated cholesterol HTN (hypertension) Rhinitis Hypothyroidism Hemorrhoids Bladder neck contracture Surgical History History of prostate surgery Hx of colonoscopy History of surgery Family History Sister Lung cancer Kidney carcinoma Other Family history non-contributory Social History Alcohol intake: unknown Patient Tobacco Use Status: Never used Tobacco Review of Systems Const Denies chills and Denies fever(s) Card Reports no additional complaints and Denies syncope Resp Denies cough GI Denies abdominal pain and Denies heartburn Reports as per HPI and Denies change in libido Neuro Denies syncope Psych Denies change in libido Endo Denies change in libido Physical Exam Const General: cooperative, healthy appearing, comfortable and no acute distress Orientation/consciousness: patient oriented x3 HEENT Face and sinus: Yes normal facial exam Mouth: moist mucous membranes Neck Neck: Yes normal visual inspection, Yes full ROM and Yes trachea midline Chest Chest palpation & inspection: normal inspection of the chest Resp Effort & Inspection: normal respiratory effort, able to speak in complete sentences and no respiratory distress GI Inspection: Yes normal to inspection Back/Spine/Pelvis Cervical Spine: normal cervical lordosis Thoracic/Lumbar Spine: thoracic and lumbar spine normal to inspection Skin General skin exam: no rashes or lesions noted Neuro General: patient oriented x3, gait normal, tone normal and moves all extremities Extrem General: Yes normal to inspection and Yes capillary refill normal Office Procedures Post Void Residual Post Residual Void Post Void Residual (PVR): 0 [id number]-[id number] Void Residual by ultrasound Assessment & Plan Assessment & Plan (1) Overactive bladder: Code(s): N32.81 - Overactive bladder Category: Medical (2) Urinary urgency: Code(s): R39.15 - Urgency of urination Category: Medical Plan Consider Botox versus InterStim Orders: Orders AMB Post Void Residual by ultrasound Today N32.81 - Overactive bladder Medications: Refilled fesoterodine ER 8 mg PO DAILY 90 days 90 tabs 1RF N32.0 - Bladder-neck obstruction, N39.41 - Urge incontinence mirabegron ER (Myrbetriq) 25 mg PO DAILY 90 days 90 tabs 1RF N32.81 - Overactive bladder, R35.1 - Nocturia, R39.15 - Urgency of urination Patient Instructions: Imaging studies, laboratory and physical exam results were discussed and reviewed in detail. No major barriers to patient understanding were identified. An opportunity to ask questions regarding the treatment plan was provided. All questions were answered. The patient expressed understanding and agreement with the above treatment plan. The patient is aware they should contact our office by phone for worsening of their current condition or the appearance of new urologic symptoms. Compliance is encouraged with any medications and followup testing that is ordered. It is a privilege to participate in the urologic care of your patient. If you have any questions or concerns regarding treatment for the above conditions, or other urologic issues, please do not hesitate to contact me. The office telephone contact is [phone]. This note is constructed using voice recognition software. While every effort has been made to ensure accuracy kettle coordinator errors may have been included. Yours sincerely, Dr Sergio Koenig MD, [facility] - Urology Providers of Expert, Compassionate Care for the Genitourinary System Coding Level of Care Code Est Pt Level 4 (61100) Diagnoses Overactive bladder N32.81 Urinary urgency R39.15 CPT Codes Post Residual Void - PVR CPT Code: 99282-Twge Void Residual by ultrasound ([id number])
== END 2023-12-08 09:33 | disposition home or self-care (01) ==
PROVIDERS: PCP General Practice; Visit Provider Urology
DX: N32.81 Overactive bladder (principal); R39.15 Urgency of urination
CPT/HCPCS: 99214

== ENCOUNTER → 2023-12-08 08:48 | Outpatient (BNVA) | payer OTHER, SELFPAY | PROVIDERS: PCP General Practice; Visit Provider Urology | DX: N39.41 Urge incontinence (principal); N32.81 Overactive bladder; N32.0 Bladder-neck obstruction; R35.1 Nocturia; Z87.442 Personal history of urinary calculi; Z79.899 Other long term (current) drug therapy | CPT/HCPCS: 51798; 99212 ==

== ENCOUNTER 2024-06-07 08:38 | Outpatient (AMB) | payer OTHER, SELFPAY ==
--- NOTE | 2024-06-07 08:39 | MHC.OFFVIS ---
Intake Visit Reasons: 6m follow up(Discuss Botox VS interstim) Intake Note: Patient is present for 6M F/U (DISCUSS BOTOX VS INTERSTIM) Urology Medication:BETHANECHOL,VITAMIN B12,FESOTERODINE,MIRABEGRON Antibiotic Allergy:NONE Blood Thinner:NONE Truck Body Repairer Required: No Allergies No Known Allergies [No Known Allergies*] Allergy (Verified 06/07/24 08:40) HPI Comments Details: Octavio is a very pleasant male. He is seen for the following urologic conditions - nephrolithiasis - lower urinary tract symptoms Telemedicine Evaluation 15 min Consultation [employer] Lynette Video Gambian translation provided in office by qualified medical accounting clerk Refilled medication list with bethanechol and Myrbetriq See in office in six-month Has been on combination bethanechol, Toviaz, Myrbetriq Has frequency and nocturia x3 Prior discussion InterStim versus Botox Prior Cystoscopy with open bladder neck Has bladder instability with impaired contractility - Previously failed oxybutynin, failed tolterodine, failed tamsulosin Lower urinary tract symptoms Current medication - Toviaz in addition to bethanechol Prior medications include , tamsulosin, tolterodine and oxybutynin Prior include oxybuytinin Intervention TURP PSA - 12/01 0.5 Cystoscopy - 04/02 open bladder neck, mild trabeculation Nephrolithiasis They are here for - further evaluation for nephrolithiasis Urolithiasis was diagnosed - ongoing The patient previously had kidney stones whose composition w - unknown Laboratory investigations include - April 2020 calcium 9.2 24 Hour urine evaluation - none on file. Prior treatment(s) include - observation Prior imaging includes - a CT - stone protocol April 2020 2 small stones - 03/02 renal ultrasound multiple punctate calcifications bilateral - 12/01 renal ultrasound several small stones bilateral - 12/02 renal ultrasound small stones right side Current therapeutic plan will be - to continue with imaging surveillance PFSH Medical History Hx of renal calculi Elevated cholesterol HTN (hypertension) Rhinitis Hypothyroidism Hemorrhoids Bladder neck contracture Surgical History History of prostate surgery Hx of colonoscopy History of surgery Family History Sister Lung cancer Kidney carcinoma Other Family history non-contributory Social History Alcohol intake: unknown Patient Tobacco Use Status: Never used Tobacco Review of Systems Const All systems reviewed & are unremarkable except as noted in HPI and below Reports no additional complaints Resp Reports no additional complaints GI Reports no additional complaints Reports as per HPI Musc Reports no additional complaints Physical Exam Telemedicine evaluation Appropriate responses Regular breathing rate and rhythm HEENT Head: Yes normal to inspection Ears: hearing grossly normal bilaterally Eyes General: appearance normal, both eyes and all related structures Neck Neck: Yes normal visual inspection Chest Chest palpation & inspection: normal inspection of the chest Resp Effort & Inspection: normal respiratory effort and able to speak in complete sentences Telehealth Telehealth Telehealth Platform: [employer] Location of provider rendering services: practice address Location of patient: address on file Patient Identification confirmed using: Name, : Yes Telehealth method: video Patient verbally consented to treatment: Yes Patient verbally consented to billing insurance company: Yes Patient informed of any privacy concerns related to visit: Yes Minutes spent on Phone/Video with Pt.: 15 Assessment & Plan Assessment & Plan (1) Bladder outlet obstruction: Code(s): N32.0 - Bladder-neck obstruction Category: Medical (2) Weak urinary stream: Code(s): R39.12 - Poor urinary stream Category: Medical (3) Urinary urgency: Code(s): R39.15 - Urgency of urination Category: Medical Plan Six-month follow-up office PVR Medications: Changed From bethanechol chloride 50 mg PO BID 30 days 60 tabs 1RF N32.0 - Bladder-neck obstruction, N39.0 - Urinary tract infection, site not specified To bethanechol chloride 50 mg PO BID 90 days 180 tabs 1RF N32.0 - Bladder-neck obstruction, N39.0 - Urinary tract infection, site not specified Refilled mirabegron ER (Myrbetriq) 25 mg PO DAILY 90 days 90 tabs 1RF N32.81 - Overactive bladder, R35.1 - Nocturia, R39.15 - Urgency of urination Discontinued fesoterodine ER Discontinued Reason: Doctor's Order 8 mg PO DAILY 90 days 90 tabs 1RF N32.0 - Bladder-neck obstruction, N39.41 - Urge incontinence Patient Instructions: This note is constructed using voice recognition software. While every effort has been made to ensure accuracy rotary pump operator errors may have been included. Imaging studies, laboratory and physical exam results were discussed and reviewed in detail. No major barriers to patient understanding were identified. An opportunity to ask questions regarding the treatment plan was provided. All questions were answered. The patient expressed understanding and agreement with the above treatment plan. The patient is aware they should contact our office by phone for worsening of their current condition or the appearance of new urologic symptoms. Compliance is encouraged with any medications and followup testing that is ordered. It is a privilege to participate in the urologic care of your patient. If you have any questions or concerns regarding treatment for the above conditions, or other urologic issues, please do not hesitate to contact me. The office telephone contact is [phone]. Sincerely, Dr Sergio Koenig MD, [facility] - Urology Compassionate Specialist Care for the Genitourinary System Coding Level of Care Code Tele Est Pt Level 3 (84104) Diagnoses Bladder outlet obstruction N32.0 Weak urinary stream R39.12 Urinary urgency R39.15
--- OUTSIDE RECORDS SUMMARY | 2024-06-07 09:13 | XMS_ITS | Encounter Summary ---
Author Organization [employer] Address [address] [place] [address] Care Team Providers Care Fan Mail Clerk Name Role Phone Evelyn Mitchell MD Primary Care Provider [phone] Encounter Details Date Type Department Care Team (Late st Contact Info) Description 08/18/2023 Orders Only [facility] MEDICINE [address] [place] [address] ProviderDerrell MD Social History Tobacco Use Types Packs/Day Years Used Date Smoking Tobacco: Never Smokeless Tobacco: Never Alcohol Use Standard Drinks/Week Comments Never 0 (1 standard drink = 0.6 oz pur e alcohol) Housing Stability Answer Date Recorded What is your housing situation today? I have ileana edouard 01/27/[address] you li ve. Do you have problems with any of the following? None of the above 01/27/2023 Food Insecurity Answer Date Recorded Within the past 12 months, y ou worried that your food would run out before you got money to buy more: Never True 01/27/2023 Within the past 12 months,th e food you bought just didn't last and you didn't have enough money to get more: Never True Transportation Answer Date Recorded In the past 12 months, has l ack of transportation kept you from medical appts, meetings, work or from getting things needed for daily living? No 01/27/2023 Utilities Answer Date Recorded In the past 12 months, has t he electric, gas, oil or water company threatened to shut off services in your home? Already shut Off 01/17/2023 Depression Answer Date Recorded Patient Health Questionnaire-2 Score 0 11/24/2022 Sex and Gender Information Value Date Recorded Sex Assigned at Male 02/09/2022 10:17 AM EDT Legal Sex Male 10:17 AM EDT Gender Identity Male 02/09/2022 10:17 AM EDT Sexual Orientation Straight 02/09/2022 10 :17 AM EDT documented as of this encounter Plan of Treatment Upcoming Encounters Date Type Department Care Team (Late st Contact Info) Description 07/21/2024 9:00 AM EDT Office Visit [facility] OPTOM[facility] [address] [place] [address] Letty Parson, OD [address] [place] [address] documented as of this encounter Procedures Procedure Name Priority Date/Time Associated Diagnosis Comments HM COLONOSCOPY Routine 04/09/2021 8:21 AM EST documented in this encounter Results * Hm Colonoscopy (04/09/2021 8:21 AM EST) Historical Provider HEALTH MAINTENANCE Final Result documented in this encounter Visit Diagnoses Not on filedocumented in this encounter Care Teams Fan Mail Clerk Relationship Specialty Start Date End Date Evelyn Mitchell MD [address] [place], [place] [id number] PCP - General Family Medicine 03/25/20 documented as of this encounter
--- OUTSIDE RECORDS SUMMARY | 2024-06-07 09:13 | XMS_ITS | Clinical Summary ---
Author Organization [facility] Address [address] [place] [address] Care Team Providers Care Editor Publications Name Role Phone Unavailable Primary Care Provider Unavailabl e Social History Tobacco Use Types Packs/Day Years Used Date Smoking Tobacco: Never Assessed Sex and Gender Information Value Date Recorded Sex Assigned at Not on file Legal Sex Male 2:19 AM EST Gender Identity Not on file Sexual Orientation Not on file Plan of Treatment Health Maintenance Due Date Last Done Comments DTaP,Tdap,and Td Vaccines (1 - Tdap) 12/04/1982 Pneumococcal Vaccine: 50+ Ye ars (1 of 1 - PCV) 12/04/2013 Zoster Vaccines (1 of 2) 12/04/2013 COVID-19 Vaccine (1 - 2023-2 5 season) 2023 Influenza Vaccine (#1) 2023 RSV Immunization Patients 60 + Years Old (1 - 1-dose 75+ series) 12/04/2038 HIB Vaccines Aged Out No longer eligi ble based on patient's age to complete this topic HPV Vaccines Aged Out No longer eligi ble based on patient's age to complete this topic Hepatitis A Vaccines Aged Out No long er eligible based on patient's age to complete this topic Hepatitis B Vaccines Aged Out No long er eligible based on patient's age to complete this topic IPV Vaccines Aged Out No longer eligi ble based on patient's age to complete this topic MMR Vaccines Aged Out No longer eligi ble based on patient's age to complete this topic Meningococcal ACWY Vaccine Aged Out N o longer eligible based on patient's age to complete this topic Meningococcal B Vacine Aged Out No lo nger eligible based on patient's age to complete this topic Pneumococcal Vaccine: Pediat rics (0 to 5 Years) and At-Risk Patients (6 to 64 Years) Aged Out No longer eligible b ased on patient's age to complete this topic RSV Immunization Patients Un mary anne 20 months Aged Out No longer eligible b ased on patient's age to complete this topic Varicella Vaccines Aged Out No longer eligible based on patient's age to complete this topic
--- OUTSIDE RECORDS SUMMARY | 2024-06-07 09:13 | XMS_ITS | Encounter Summary ---
Author Organization [facility] Address [address] [facility] 7t [place] [address] Care Team Providers Care Composite Science Teacher Name Role Phone Evelyn Mitchell MD Primary Care Provider [phone] Reason for Visit * Reason Onset Date Comments Med Refill 05/22/2024 Encounter Details Date Type Department Care Team (Late st Contact Info) Description 05/22/[address] [facility] CHC MED & PEDS [address] [place], [place] [id number] Evelyn Mitchell MD [address] [place] [address] Social History Tobacco Use Types Packs/Day Years Used Date Smoking Tobacco: Never Smokeless Tobacco: Never Alcohol Use Standard Drinks/Week Comments Never 0 (1 standard drink = 0.6 oz pur e alcohol) Depression Answer Date Recorded Patient Health Questionnaire-9 Score 0 01/05/2024 Patient Health Questionnaire-9 Score 0 01/05/2024 Last PHQ-9: Questionnaire Data Not on file 0 01/05/2024 Housing Stability Answer Date Recorded What is your housing situation today? I have ileanaori edouard 01/27/[address] you [...] Date Recorded Patient Health Questionnaire-2 Score 0 01/05/2024 Sex and Gender Information Value Date Recorded Sex Assigned at Male 02/09/2022 10:17 AM EDT Legal Sex Male 10:17 AM EDT Gender Identity Male 02/09/2022 10:17 AM EDT Sexual Orientation Straight 02/09/2022 10 :17 AM EDT documented as of this encounter Plan of Treatment Upcoming Encounters Date Type Department Care Team (Late st Contact Info) Description 07/21/2024 9:00 AM EDT Office Visit [facility] OPTOMETRY [address] [place], [place] [id number] Letty Parson, OD [address] [place] [address] documented as of this encounter Visit Diagnoses Not on filedocumented in this encounter Additional Health Concerns Assessment Noted Time PHQ-9 Depression Total Score: 0 01/05/20 24 11:21 AM EDT documented as of this encounter Care Teams Composite Science Teacher Relationship Specialty Start Date End Date Evelyn Mitchell MD [address] [place] [address] PCP - General Family Medicine 03/25/20 documented as of this encounter
--- OUTSIDE RECORDS SUMMARY | 2024-06-07 09:13 | XMS_ITS | Encounter Summary ---
Author Organization [facility] Address [address] [place] [address] 7 [place] [address] Care Team Providers Care Aligning Inspector Name Role Phone Evelyn Mitchell MD Primary Care Provider [phone] Encounter Details Date Type Department Care Team (Latest Contact Info) Description 11/09/2018 Abstract [facility] CONVERSIONS Dental, Provider, DDS Social History Tobacco Use Types Packs/Day Years [...] Description 07/21/2024 9:00 AM EDT Office Visit [facility] OPTOMETRY [address] [place] [address] EbLetty milligan, OD [address] [place] [address] documented as of this encounter Visit Diagnoses Not on filedocumented in this encounter Care Teams Aligning Inspector Relationship Specialty Start Date End Date Evelyn Mitchell MD [address] [place] [address] PCP - General Family Medicine 03/25/20 documented as of this encounter
--- OUTSIDE RECORDS SUMMARY | 2024-06-07 09:14 | XMS_ITS | Patient Health Record ---
Author Organization [facility] Address [address] [place] [id number] Care Team Providers Care Dry Charge Process Attendant Name Role Phone Evelyn Mitchell M.D. Primary Care Provider Carolva Telly Su Unavailable [phone] ALLERGIES No Known Allergies REASON FOR REFERRAL No Information MEDICATIONS Medication SIG (Take, Route, Frequency, Duration) Notes Start Date End Date Status hydroCHLOROthiazide Active Unithroid 112 MCG 1 tablet in the morning on an empty stomach Orally Once a day for 30 day(s) Active Allergy Eye Drops Ac tive Dulcolax (colon prep) 5 MG take at 3:00 p.m and 7:00p.m. Orally two tablets twice a day for one day for 1 day 03/14/2021 Active oxyBUTYnin Chloride ER 10 MG Oral for 30 Active Tylenol Extra Strength 500 MG 1 tablet a s needed Orally every 6 hrs Active Vitamin D3 25 MCG (1000 UT) 1 tablet Ora lly Once a day for 30 day(s) Active Omeprazole 40 MG TAKE 1 CAPSULE BY MOUTH EVERY DAY BEFORE A MEAL Oral for 30 Active hydrALAZINE HCl Acti ve MiraLax (colon prep) 17 GM/SCOOP 1 238 Gm bottle mixed with Gatorade or Crystal Light Orally begin at 5:00 p.m. the day before the procedure for 1 day 03/14/2021 Active Tamsulosin HCl Activ e Atorvastatin Calcium 20 MG TAKE 1 TABLET BY MOUTH ONCE DAILY Oral for 90 Active IMMUNIZATIONS Vaccine Route Administration Date Status Comme nts Influenza Unknown 03/11/2021 Refused SOCIAL HISTORY Tobacco Use: Social History Observation Description Date Details (start date - stop date) Never Smoker NA - NA Sex Assigned At : Social History Observation Description Sex Assigned At Unknown Tobacco Use/Smoking Question Answer Notes Patient is a nonsmoker Alcohol Screen Question Answer Notes Did you have a drink containing alcohol in the p ast year? No Points 0 Interpretation Negative PROBLEMS Problem Type ICD Code Onset Dates Problem Status W/U Status Risk SNOMED Code Notes Problem Encounter for screening for malignant neoplasm of colon (Z12.11) Active confirmed 449470083 Problem Gastroesophageal reflux disease (K21.9) Active confirmed Gastroesophagea l reflux disease (526858748) Problem Gallstones (K80.20) Active confirmed 23 0354911 Problem Diverticulosis of colon (K57.30) Active confirmed Diverticulosi s of colon (555625057) Problem Gastroesophageal reflux disease, unspecified whether esophagitis present (K21.9) Active confirmed 905282039 PLAN OF TREATMENT Pending Test Test Name Order Date US ABD 03/11/2021 Pathology 04/09/2021 US abdomen complete 04/08/2021 Future Test Test Name Order Date UPPER GI ENDOSCOPY 03/11/2021 COLONOSCOPY 03/11/2021 Insurance Providers Payer Name Payer Address Payer Phone Subscriber Number Group Number Insured Name Patient Relationship to Insured Coverage Start Date Coverage End Date [facility] [address] [address] [place], [place] [id number] NIK ALVAREZ Self - patient is the insured MEDICAL (GENERAL) HISTORY Medical History History ICD Code Vitamin D deficiency GERD Hypertension Hypothyroidism Bilatral small kidney stones Gallstones Negative colonoscopy 2007 Hyperlipidemia BPH Denies [place],DM,CVA,Lung disease,renal dise ase GERD Surgical History Surgery Date(Month/Year) Prostate/Bladder -Dr. Romo, III Hemorrhoids-Dr. Pablo
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
--- OUTSIDE RECORDS SUMMARY | 2024-06-07 09:14 | XMS_ITS | Encounter Summary ---
Author Organization [facility] Address [address] [place] [address] [address] h Floor [place] [id number] Care Team Providers Care Water Sander Name Role Phone Evelyn Mitchell MD Primary Care Provider [phone] Encounter Details Date Type Department Care Team (Latest Contact Info) Description 12/31/2020 Abstract [facility] CONVERSIONS Dental, Provider, DDS Social History Tobacco [...] Description 07/21/2024 9:00 AM EDT Office Visit [facility] OPTOMETRY [address] [place] [address] EbLetty milligan, OD [address] [place] [address] documented as of this encounter Visit Diagnoses Not on filedocumented in this encounter Care Teams Water Sander Relationship Specialty Start Date End Date Evelyn Mitchell MD [address] [place] [address] PCP - General Family Medicine 03/25/20 documented as of this encounter
--- OUTSIDE RECORDS SUMMARY | 2024-06-07 09:14 | XMS_ITS | Encounter Summary ---
Author Organization [facility] Address [address] [place] [address] [address] Floor [place] [id number] Care Team Providers Care Forestry Aid Name Role Phone Evelyn Mitchell MD Primary Care Provider [phone] Encounter Details Date Type Department Care Team ([facility] Contact Info) Description 12/09/2022 Orders Only [facility] MEDICINE [address] [place] [address] Evelyn Mitchell MD [address] [place] [address] Other hyperlipidemia (Primary Dx) Social History Tobacco Use Types Packs/Day Years Used Date Smoking Tobacco: Never Smokeless Tobacco: Never Alcohol Use Standard Drinks/Week Comments Never 0 (1 standard drink = 0.6 oz pur e alcohol) Depression Answer Date Recorded Patient Health Questionnaire-2 Score 0 11/24/2022 Sex and Gender Information Value Date Recorded Sex Assigned at Male 02/09/2022 10:17 AM EDT Legal Sex Male 10:17 AM EDT Gender Identity Male 02/09/2022 10:17 AM EDT Sexual Orientation Straight 02/09/2022 10 :17 AM EDT documented as of this encounter Plan of Treatment Upcoming Encounters Date Type Department Care Team (Late Contact Info) Description 07/21/2024 9:00 AM EDT Office Visit [facility] OPTOMETRY [address] [place] [address] EbLetty milligan, OD [address] [place] [address] documented as of this encounter Visit Diagnoses Diagnosis Other hyperlipidemia- Primary documented in this encounter Care Teams Forestry Aid Relationship Specialty Start Date End Date Evelyn Mitchell MD [address] [place] [address] PCP - General Family Medicine 03/25/20 documented as of this encounter
--- OUTSIDE RECORDS SUMMARY | 2024-06-07 09:14 | XMS_ITS | Encounter Summary ---
Author Organization [facility] Address [address] [facility] [address] [place] [address] Care Team Providers Care Slab Lifting Engineer Name Role Phone Evelyn Mitchell MD Primary Care Provider [phone] Encounter Details Date Type Department Care Team (Late st Contact Info) Description 03/31/2023 Orders Only [facility] MEDICINE [address] [place], [place] [phone] Evelyn Mitchell MD [address] [place], [place] [phone] Positive Helicobacter pylori test (Primary Dx) Social History Tobacco Use Types [...] Description 07/21/2024 9:00 AM EDT Office Visit [facility] OPTOMETRY [address] [place] [address] Ltety Parson, OD [address] [place] [address] documented as of this encounter Visit Diagnoses Diagnosis Positive Helicobacter pylori test- Primary documented in this encounter Care Teams Slab Lifting Engineer Relationship Specialty Start Date End Date Evelyn Mitchell MD [address] [place] [address] PCP - General Family Medicine 03/25/20 documented as of this encounter
== END 2024-06-07 09:29 | disposition home or self-care (01) ==
LOC: HO.HUSH 08:38
PROVIDERS: PCP General Practice; Visit Provider Urology
DX: N32.0 Bladder-neck obstruction (principal); R39.12 Poor urinary stream; R39.15 Urgency of urination
CPT/HCPCS: 99213

== ENCOUNTER → 2024-06-07 08:38 | Outpatient (BNVA) | payer OTHER, SELFPAY | PROVIDERS: PCP General Practice; Visit Provider Urology ==

== ENCOUNTER 2024-09-06 07:16 | Emergency (ER) | payer OTHER, SELFPAY ==
[2024-09-06 07:32] VITALS: BP 152/94; PULSE 71; RESP 18; TEMP 36.4; O2SAT 97; BMI 30.3
[2024-09-06 07:49] LABS: MANUAL DIFF FLAG NO
[2024-09-06 07:51] LABS: Basophils Percent Auto 0.7 % (0-2); Eosinophils Absolute Auto 0.2 X10*3/uL (0.0-0.4); Eosinophils Percent Auto 3.7 % (0-4); Hematocrit 50.3 % (42.0-52.0); Hemoglobin 17.1 g/dl (14.0-18.0); Imm Gran Abs Auto 0.01 X10*3/uL (0.00-0.03); Imm Gran Pct Auto 0.2 % (0.0-0.4); Lymphocytes Percent Auto 46.9 % (20-40); Mean Corpuscular Hemoglobin 29.9 pg (27.0-33.0); Mean Corpuscular Volume 87.9 fL (80.0-98.0); Mean Platelet Volume 9.7 fL (9.4-12.4); Monocytes Absolute Auto 0.5 X10*3/uL (0.1-1.2); Monocytes Percent Auto 10.6 % (2-11); Neutrophils Absolute Auto 1.6 x10*3/uL (2.0-8.3); Neutrophils Percent Auto 37.9 % (45-73); Platelet Count 165 X10*3/uL (160-400); Red Blood Count 5.72 X10*6/uL (4.60-5.80); Red Cell Distribution Width 13.4 % (11.0-16.0); White Blood Count 4.3 X10*3/uL (4.8-10.8)
[2024-09-06 08:12] LABS: Alanine Aminotransferase 79 U/L (0-40); Albumin Level 4.5 g/dL (3.5-5.0); Alkaline Phosphatase 88 U/L (39-117); Anion Gap 11 (12-20); Aspartate Amino Transferase 28 U/L (5-37); Bilirubin Total 0.8 mg/dL (0.0-1.0); Blood Urea Nitrogen 24 mg/dL (9-16); Calcium 9.9 mg/dL (8.4-10.2); Carbon Dioxide 29 mmol/L (22-29); Chloride 106 mmol/L (96-108); Creatinine Clr Calc Pharmacy 74.6; Estimated Glomerular Filt Rate > 60; Glucose Random 97 mg/dL (60-115); Lipase 28 U/L (8-78); Potassium 3.9 mmol/L (3.3-5.1); Sodium 142 mmol/L (135-145); Total Protein 7.3 g/dL (6.5-8.0)
[2024-09-06 08:42] LABS: Appearance Urine Clear; Color Urine Yellow; Glucose Urine UA Negative (Negative); Leukocyte Esterase Urine Negative (Negative); Nitrite Urine Negative (Negative); Urine Blood Negative (Negative); Urine Ketones Negative (Negative); Urine Protein Negative (Neg-Trace)
--- NOTE | 2024-09-06 08:42 | ED_ITS ---
HPI - Male Genitourinary General Chief complaint: Urogenital-Male Stated complaint: Abd pain Time Seen by Provider: 09/06/24 08:42 Source: patient Mode of arrival: ambulatory Limitations: no limitations History of Present Illness ED Provider: Tammy Cervantes PA-C HPI Narrative: Patient is a 58 year old assigned male at with a history of overactive bladder and kidney stones presenting to the emergency department today with intermittent nausea, frequent urination, and lower abdominal pain. Patient states that over the last 2 months he has had intermittent abdominal pain, nausea, and urinary frequency. Patient states that he has none of those symptoms right now. Patient denies any dizziness, lightheadedness, vomiting, fever, chills, blurry vision, double vision, loss of vision, chest pain, difficulty breathing, shortness of breath, back pain, night sweats, pain with urination, increased urinary urgency, blood in his urine or stool, syncope or a near syncopal episode, recent trauma or falls, bowel incontinence, bladder incontinence, or any other complaints at this time. Relieving factors: none Exacerbating factors: none Related Data Home Medications ?Medication ?Instructions ?Recorded ?Confirmed atorvastatin 20 mg tablet 20 mg PO DAILY 01/16/20 12/08/23 levothyroxine 112 mcg tablet 112 mcg PO DAILY 01/16/20 12/08/23 omeprazole 40 mg capsule,delayed 40 mg PO DAILY 01/16/20 12/08/23 release hydrochlorothiazide 25 mg tablet 25 mg PO DAILY 11/18/21 12/08/23 lisinopril 20 mg tablet 20 mg PO DAILY 11/18/21 12/08/23 Previous Rx's ?Medication ?Instructions ?Recorded pyridoxine (vitamin B6) 100 mg 100 mg PO DAILY 90 days #90 tabs 03/31/22 tablet magnesium citrate 150 ml PO DAILY #296 mL 09/22/22 prednisone 20 mg tablet 20 mg PO DAILY 7 days #7 tabs 09/22/22 phenazopyridine 100 mg tablet 100 mg PO TID 6 doses #6 tabs 10/27/22 (Pyridium) bethanechol chloride 50 mg tablet 50 mg PO BID 90 days #180 tabs 06/07/24 mirabegron 25 mg tablet,extended 25 mg PO DAILY 90 days #90 tabs 06/07/24 release 24 hr (Myrbetriq) Allergies Allergy/AdvReac Type Severity Reaction Status Date / Time No Known Allergies Allergy Verified 09/06/24 07:35 [No Known Allergies*] Review of Systems 2 Constitutional: Constitutional: Reports no additional constitutional complaints, Denies chills, Denies fever(s) and Denies night sweats Eyes: Eyes: Reports no additional eye complaints, Denies blurry vision, Denies change in vision, Denies diplopia, Denies eye discharge, Denies loss of vision and Denies eye pain ENT: Denies dizziness Cardiovascular: Cardiovascular: Reports no additional cardiovascular complaints, Denies chest pain, Denies lightheadedness, Denies Loss of Consciousness and Denies dyspnea Respiratory: Respiratory: Reports no additional respiratory complaints and Denies dyspnea Gastrointestinal: Gastrointestinal: Reports no additional gastrointestinal complaints, Reports abdominal pain (intermittent - none today), Denies melena, Denies hematochezia, Denies change in bowel habits, Denies change in stool character and Reports nausea (intermittently - none today) Genitourinary: Genitourinary: Reports no additional male genitourinary complaints, Denies hematuria, Denies oliguria, Denies difficulty urinating, Denies dysuria, Reports urinary frequency (intermittently - none today), Denies urinary hesitancy, Denies urinary incontinence and Denies urinary urgency Musculoskeletal: Musculoskeletal: Reports no additional musculoskeletal complaints, Denies numbness and Denies tingling Neurologic: Denies dizziness, Denies loss of vision, Denies numbness and Denies tingling Psychiatric: Psychiatric: Reports no additional psychiatric complaints Endocrine: Endocrine: Reports no additional endocrine complaints Hematologic/Lymphatic: Hematologic/Lymphatic: Reports no additional hematologic/lymphatic complaints Allergic/Immunologic: Allergic/Immunologic: Reports no additional allergic/immunologic complaints [facility] Past Medical History Attestation statement: The following information was validated with the patient. Source: old records reviewed and nursing notes reviewed Medical History Hx of renal calculi Elevated cholesterol HTN (hypertension) Rhinitis Hypothyroidism Hemorrhoids Bladder neck contracture Surgical History History of prostate surgery Hx of colonoscopy History of surgery Family History Family History Sister Lung cancer Kidney carcinoma Other Family history non-contributory Social History Social History Alcohol intake: unknown Patient Tobacco Use Status: Never used Tobacco Advance Directives: No Advance Directives Information Provided: Yes Do you have a plan to hurt others: No Plan Physical Exam 2 Vital Signs: Vital Signs: Last Vital Signs Temp 97.5 F 09/06/24 09:26 Pulse 71 09/06/24 09:26 Resp 18 09/06/24 09:26 BP 152/94 H 09/06/24 09:26 Pulse Ox 97 09/06/24 09:26 O2 Del Method Room Air 09/06/24 09:26 BMI result Body Mass Index 30.3 Const: General: cooperative, no acute distress, alert and awake Nutritional Appearance: well nourished Orientation/consciousness: patient oriented x3 HEENT: Head: Yes normal to inspection and Yes atraumatic Ears: hearing grossly normal bilaterally and external ears normal General nose exam: Normal external nose present, no nasal discharge noted and no epistaxis Face and sinus: Yes normal facial exam, No abrasion and No laceration Mouth: Normal oral and palatal mucosa present, no drooling and no muffled voice Eyes: General: appearance normal, both eyes and all related structures P eriorbital: periorbital findings normal Eyelids: Yes eyelids normal C onjunctivae: conjunctivae normal Pupils: Equal, round and reactive pupils present EOM: EOMs intact bilaterally Neck: Neck: Yes normal visual inspection, Yes full ROM and Yes no lymphadenopathy Resp: Effort & Inspection: normal respiratory effort and able to speak in complete sentences GI: Palpation (GI): Soft to palpation, not firm, nontender, no guarding and not rigid Neuro: General: patient oriented x3, moves all extremities and CN's II-XI intact bilaterally Cranial nerves: Yes Equal, round and reactive pupils present Cognition (Neuro): normal cognition Extrem: General: Yes normal to inspection, Yes full ROM and Yes capillary refill normal Psych: Appearance: grossly normal Mental Status: mental status grossly normal Affect: normal affect Attitude: cooperative Thought process: N ormal thought process present Thought content: Normal thought content present Insight: Good insight present (Psych) Medical Decision Making Medical Decision Making MDM Narrative: Patient is a 58 year old assigned male at with a history of overactive bladder and kidney stones presenting to the emergency department today with intermittent nausea, frequent urination, and lower abdominal pain. Patient's physical exam was unremarkable. Patient's blood work was unremarkable. Patient's urine showed no acute process. Patient continued to not have any symptoms while in the department. I explained my physical exam findings as well as all test results to the patient. I answered all questions asked by the patient. I stressed the importance of the patient taking his medication as directed (either prescribed or as the over the counter packaging recommends). I stressed the importance of the patient following up with his primary care provider and his urologist. I stressed the importance of the patient returning to the emergency department immediately if his symptoms were to worsen or if he were to develop any dizziness, shortness of breath, difficulty breathing, chest pain, blurry vision, loss of vision, nausea, vomiting, abdominal pain, fever, chills, back pain, or any other complaints. Patient verbalized agreement and understanding with this treatment plan and discharge. Differential Diagnosis Differential Diagnoses: The differential diagnosis associated with the presentation includes Abdominal pain Nausea Chronic urinary frequency Chronic overactive bladder Admission/Observation Consideration of admission/observation: Escalation of care including admission/observation considered Patient would have been admitted to the hospital had his work up had any findings where hospital admission was appropriate and his clinical presentation warranted hospital admission. Lab Data [facility] Lab Attestation statement: I reviewed the patient's lab results. My interpretation of these results are in the [facility] Rationale portion of this note. 09/06/24 07:46 09/06/24 07:46 Labs: Lab Results 09/06/24 09/06/24 Range/Units 07:46 08:30 WBC 4.3 L (4.8-10.8) X10*3/uL RBC 5.72 (4.60-5.80) X10*6/uL Hgb 17.1 (14.0-18.0) g/dl Hct 50.3 (42.0-52.0) % MCV 87.9 (80.0-98.0) fL MCH 29.9 (27.0-33.0) pg MCHC 34.0 (31.0-36.0) g/dl RDW 13.4 (11.0-16.0) % Plt Count 165 (160-400) X10*3/uL MPV 9.7 (9.4-12.4) fL Immature Gran % (Auto) 0.2 (0.0-0.4) % Neut % (Auto) 37.9 L (45-73) % Lymph % (Auto) 46.9 H (20-40) % [place] % (Auto) 10.6 (2-11) % Eos % (Auto) 3.7 (0-4) % Baso % (Auto) 0.7 (0-2) % Lymph # (Auto) 2.0 (1.2-4.9) X10*3/uL [place] # (Auto) 0.5 (0.1-1.2) X10*3/uL Eos # (Auto) 0.2 (0.0-0.4) X10*3/uL Baso # (Auto) 0.0 (0.0-0.2) X10*3/uL Abs Immat Gran (auto) 0.01 (0.00-0.03) X10*3/uL Absolute Neuts (auto) 1.6 L (2.0-8.3) x10*3/uL Absolute Nucleated RBC 0.000 (0.0-0.012) X10*3/uL Nucleated RBC % (auto) 0.0 (0.0-0.2) /100WBC Sodium 142 (135-145) mmol/L Potassium 3.9 (3.3-5.1) mmol/L Chloride 106 (96-108) mmol/L Carbon Dioxide 29 (22-29) mmol/L Anion Gap 11 L (12-20) BUN 24 H (9-16) mg/dL Creatinine 1.04 (0.5-1.4) mg/dL Estim Creat Clear Calc 74.6 Estimated GFR > 60 Random Glucose 97 (60-115) mg/dL Calcium 9.9 D (8.4-10.2) mg/dL Total Bilirubin 0.8 (0.0-1.0) mg/dL AST 28 (5-37) U/L ALT 79 H (0-40) U/L Alkaline Phosphatase 88 (39-117) U/L Total Protein 7.3 (6.5-8.0) g/dL Albumin 4.5 (3.5-5.0) g/dL Lipase 28 (8-78) U/L Urine Color Yellow Urine Appearance Clear Urine pH 7.0 (5.0-9.0) Ur Specific [place] 1.020 (1.005-1.025) Urine Protein Negative (Neg-Trace) mg/dL Urine Glucose (UA) Negative (Negative) mg/dL Urine Ketones Negative (Negative) mg/dL Urine Blood Negative (Negative) Urine Nitrite Negative (Negative) Ur Leukocyte Esterase Negative (Negative) Urine RBC 0-2 (0-2) /HPF Urine WBC 0-5 (0-5) /HPF Ur Squamous Epith Cells 0-2 (0-2) /HPF Urine Bacteria None Seen (None Seen) Hyaline Casts 0-2 (0-2) /LPF Tests considered The following testing was considered but not selected: I considered obtaining a CT of the abdomen/pelvis however, the patient's current clinical presentation and work up did not warrant this. I discussed this with the patient who verbalized understanding and agreement. Discharge Plan Discharge Clinical Impression: Abdominal pain Patient Disposition: Home, Self-Care Instructions: Abdominal Pain (ED) Additional Instructions: Follow up with your primary care provider. Return to the emergency department immediately if your symptoms worsen or if you develop any dizziness, shortness of breath, difficulty breathing, chest pain, blurry vision, loss of vision, nausea, vomiting, abdominal pain, fever, chills, back pain, or any other complaints. April?seguimiento?con liang m?dico de atenci?n primaria. Acuda inmediatamente al servicio de urgencias si francisco s?ntomas empeoran o si presenta falta de aliento, dificultad para respirar, dolor tor?cico, mareos, aturdimiento, dolor de espalda, dolor abdominal, fiebre, escalofr?os o cualquier otro s?ntoma. Please see the information below about our Patient Portal. If you are not yet enrolled in the [facility] Patient Portal, you will receive an enrollment email invitation following your visit to any [facility] care setting. You may also self-enroll in the Patient Portal by visiting our website: [email or web address] The following information is required to access the Patient Portal: - Your [facility] Medical Record Number - Your personal home email address (must match what is in your electronic medical record, Registration staff can assist with this) - Name - Date of Capabilities of the Patient Portal: - Message some providers - View upcoming appointments - Access your health summary, medical history, and visit history - View current conditions and allergies - View procedure and lab results - View your medications, including guidelines, side effects, and precautions - Complete pre-appointment questionnaires requested by your provider - Ready summary reports of your office visits and procedures To access the Patient Portal Mobile Lynette, follow these directions: - Search Cloud[employer] in the Lynette Store or theBench Store - Download the Lynette - Search for [facility] - Enter your login/password Portal del paciente Si usted no esta inscrito en el portal de pacientes de [facility], recibira deisy invitacion de inscripcion despues de liang visita al [facility] o al [facility] via correo electronico. Tambien puede inscribirse voluntariamente en el portal de pacientes visitando nuestra pagina web: [email or web address] La siguiente informacion sera requerida para acceder al portal: - Liang carolina de historia medica de [facility] - Liang direccion de correo electronico personal - Nombre - Fecha de nacimiento Capacidades: Las siguientes capacidades estan disponibles en el portal de pacientes: - Enviar mensajes a algunos doctores - Verificar proximas citas - Acceso a liang historial de leonie, registro medico e historial de visitas - Ashley las condiciones actuales y alergias ashley procedimientos y resultados del laboratorio - Ashley francisco medicamentos, incluyendo las pautas - Efectos secundarios y precauciones - Completar o llenar formularios / cuestionarios de - Citas solicitadas por liang doctor - Leer los resumenes de reportes medicos de francisco visitas y procedimientos [place] acceder a la aplicacion movil: - Demetri Bolt [employer] [facility] en la Lynette Store o Google Play Store - Descargue la aplicacion - [facility] - Ingrese liang nombre de usuario / Contrasena Prescriptions: No Action prednisone 20 mg tablet 20 mg PO DAILY 7 Days Qty: 7 0RF magnesium citrate Solution 150 ml PO DAILY Qty: 296 0RF phenazopyridine [Pyridium] 100 mg tablet 100 mg PO TID Qty: 6 0RF levothyroxine 112 mcg tablet 112 mcg PO DAILY atorvastatin 20 mg tablet 20 mg PO DAILY omeprazole 40 mg capsule,delayed release(DR/EC) 40 mg PO DAILY hydrochlorothiazide 25 mg tablet 25 mg PO DAILY lisinopril 20 mg tablet 20 mg PO DAILY pyridoxine (vitamin B6) 100 mg tablet 100 mg PO DAILY 90 Days Qty: 90 1RF Myrbetriq 25 mg tablet extended release 24 hr 25 mg PO DAILY 90 Days Qty: 90 1RF bethanechol chloride 50 mg tablet 50 mg PO BID 90 Days Qty: 180 1RF Referrals: Evelyn Mitchell MD [Primary Care Provider] - Interventions: ED Discharge Assessment Last Done: 09/06/24 09:26 Discharge Date/Time: 09/06/24 09:27 Print Language: Turkish
--- OUTSIDE RECORDS SUMMARY | 2024-09-06 08:42 | XMS_ITS | Clinical Summary ---
Author Organization [facility] Address [address] [place] [address] Care Team Providers Care Ash Kier Boiler Name Role Phone Unavailable Primary Care Provider [...] - 2023-2 5 season) 2023 Influenza Vaccine (Season Ended) 2024 RSV Immunization Adult Patie nts (1 - 1-dose 75+ series) 12/04/2038 HIB [...] age to complete this topic Meningococcal B Vaccine Aged Out No l onger eligible based on patient's age to complete [...]
[2024-09-06 08:47] LABS: Bacteria Urine None Seen (None Seen); Hyaline Casts Urine 0-2 /LPF (0-2); RBC Urine 0-2 /HPF (0-2); Squamous Epithelial Cell Urine 0-2 /HPF (0-2); WBC Urine 0-5 /HPF (0-5)
[2024-09-06 09:26] VITALS: BP 152/94; PULSE 71; RESP 18; TEMP 36.4; O2SAT 97
== END 2024-09-06 09:27 | disposition home or self-care (01) ==
PROVIDERS: Emergency Provider Emergency Medicine; PCP General Practice
DX: R10.30 Lower abdominal pain, unspecified (principal); Z79.899 Other long term (current) drug therapy
CPT/HCPCS: 36415; 80053; 81001; 83690; 85025; 99283

== ENCOUNTER 2024-10-24 04:05 | Inpatient (IN) | payer OTHER, SELFPAY ==
[2024-10-24] VITALS (9 sets, daily range): BP systolic 125–164; BP diastolic 72–94; PULSE 64–82; RESP 16–20; TEMP 36.6–36.9; O2SAT 96–100; BMI 29.0; BMI 26.9
--- NOTE | ~2024-10-24 | CT_ITS ---
EXAMINATION: CT ABDOMEN AND PELVIS WITH CONTRAST CLINICAL INFORMATION: Upper abdominal pain. COMPARISON: September 22, 2022. TECHNIQUE: Multidetector volumetric images were obtained from the superior aspect of the liver through the pubic symphysis following administration 85 mL of Omnipaque 350 intravenous contrast. Sagittal and coronal reformatted images were obtained on the technologist's workstation. Oral contrast: No This CT examination was performed using dose optimization techniques as appropriate, variously including the following: *Automated exposure control *Adjustment of mA and/or kV according to patient size (this includes techniques or standardized protocols for targeted exams where dose is matched to indication/reason for exam; i.e. extremities or head) *Use of iterative reconstruction technique DLP: 563 mg centimeter. FINDINGS: LUNG BASES: Pulmonary patchy groundglass, lower lung lobes and lingula. LIVER, GALLBLADDER, AND BILIARY TREE: Liver measures 15 cm. Decreased enhancement pattern. No focal mass. Portal veins, hepatic veins and intrahepatic portion of the IVC are patent. Single 5 mm calcification within the gallbladder lumen. No pericholecystic fluid collection or gallbladder wall thickening. No intrahepatic or extrahepatic biliary ductal dilatation. PANCREAS: Peripancreatic edema pattern. Trace of fluid in the periduodenal fat plane. No fluid collection. No main pancreatic ductal dilatation. No focal mass. Homogeneous enhancement of the pancreatic parenchyma. SPLEEN: 8 cm. No focal mass. ADRENAL GLANDS: No nodular lesions. KIDNEYS AND URETERS: Nonobstructing 2 mm calculi, both pelvicalyceal systems. No hydronephrosis in either kidney. Normal enhancement pattern of the renal parenchyma. Subcentimeter cyst, bilaterally. No renal mass. Small to moderate volume of fluid in the retroperitoneum no involving the pararenal compartment.. BLADDER: Fluid-filled. GASTROINTESTINAL TRACT: Appendix is normal. Abundant stool in the large intestine. Mild prominence of the proximal to mid small bowel loops. No intestinal obstruction pattern. No fluid collections, peritoneal cavity. No pneumoperitoneum. No pneumatosis intestinalis. ABDOMINAL WALL: Small fat-containing umbilical hernia. LYMPH NODES: Prominent mesenteric and retroperitoneum. VASCULAR: Mixed plaques throughout the abdominal aorta wall and iliac arteries. No aneurysm or dissection abdominal aorta. Splenic vein is patent. Splenic artery is patent without contour irregularity. PELVIC VISCERA: Not enlarged prostate gland. OSSEOUS STRUCTURES: Mild multilevel thoracolumbar spondylosis without acute fracture or listhesis. Degenerative changes in the stents as well as and sacroiliac joints. No acute fracture or dislocation in the coxofemoral joints. CT/CT abdomen pelvis w IV con IMPRESSION: Acute noncomplicated pancreatitis. Small volume of free fluid lesser sac and retroperitoneum. Cholelithiasis. Hepatic steatosis. Fleischner guidelines were followed. Electronically signed by: Miguel Hernandez MD 10/24/2024 09:53 AM EDT
--- NOTE | ~2024-10-24 | MR_ITS ---
EXAMINATION: MRCP HISTORY: acute pancreatitis, cholelithiasis COMPARISON: Correlation is made with a CT of the abdomen with contrast dated 10/24/2024. TECHNIQUE: Axial gradient echo in and out of phase T1, axial T2 and fat suppressed T2, and coronal haste T2 with fat saturation images were obtained through the abdomen. 3D MRCP Reconstructed images and thick slab imaging of the biliary tree were obtained. FINDINGS: There is diffuse loss of signal intensity within the liver on opposed phase imaging, consistent with steatosis. There is no intrahepatic biliary ductal dilatation. There is cholelithiasis. The common bile duct is normal in caliber. No intraluminal filling defects are identified to suggest choledocholithiasis. The pancreas appears edematous and there is moderate peripancreatic inflammatory stranding and fluid, consistent with acute pancreatitis. The pancreatic duct is normal in caliber. There is no peripancreatic loculated fluid collection. The spleen, adrenals, and left kidney are unremarkable. There is a 9 mm cyst in the lower pole of the right kidney. No retroperitoneal lymphadenopathy is identified. The visualized bones demonstrate normal marrow signal intensity. MR/MR MRCP IMPRESSION: 1. Acute pancreatitis. 2. Cholelithiasis without evidence of acute cholecystitis or choledocholithiasis. 3. Hepatic steatosis. Electronically signed by: Telly Singleton MD 10/24/2024 02:46 PM EDT
[2024-10-24 06:32] LABS: MANUAL DIFF FLAG NO
[2024-10-24 06:35] LABS: Hematocrit 48.2 % (42.0-52.0); Hemoglobin 16.9 g/dl (14.0-18.0); Imm Gran Abs Auto 0.02 X10*3/uL (0.00-0.03); Imm Gran Pct Auto 0.2 % (0.0-0.4); Lymphocytes Absolute Auto 0.9 X10*3/uL (1.2-4.9); Mean Corpuscular HGB Conc 35.1 g/dl (31.0-36.0); Mean Corpuscular Hemoglobin 30.3 pg (27.0-33.0); Mean Corpuscular Volume 86.4 fL (80.0-98.0); NRBC Abs Auto 0.000 X10*3/uL (0.0-0.012); NRBC Pct Auto 0.0 /100WBC (0.0-0.2); Platelet Count 155 X10*3/uL (160-400); Red Blood Count 5.58 X10*6/uL (4.60-5.80); White Blood Count 8.4 X10*3/uL (4.8-10.8)
[2024-10-24 07:20] LABS: Alanine Aminotransferase 66 U/L (0-40); Albumin Level 4.1 g/dL (3.5-5.0); Alkaline Phosphatase 83 U/L (39-117); Anion Gap 13 (12-20); Aspartate Amino Transferase 37 U/L (5-37); Blood Urea Nitrogen 27 mg/dL (9-16); Calcium 9.2 mg/dL (8.4-10.2); Carbon Dioxide 28 mmol/L (22-29); Chloride 106 mmol/L (96-108); Creatinine Clr Calc Pharmacy 77.4; Estimated Glomerular Filt Rate > 60; Lipase 447 U/L (8-78); Potassium 4.1 mmol/L (3.3-5.1); Sodium 143 mmol/L (135-145); Total Protein 6.9 g/dL (6.5-8.0)
--- NOTE | 2024-10-24 07:33 | ED.GENADULT ---
HPI - General Adult General Chief complaint: Abdominal Pain Stated complaint: stomach pain Time Seen by Provider: 10/24/24 07:33 History of Present Illness ED Provider: Angel DIAZ narrative: The patient is a 58-year-old male who says that he developed abdominal pain yesterday evening after eating an omelet. He has had pain across his upper abdomen since then. He has vomited several times. He says at 1 point the pain radiated to his back. He has never had an episode of pain like this before. However he says he has had a sense of difficulty with eating for several months. No fever, sweats, chills. No chest pain or shortness of breath. He says he does not drink alcohol. He reports a history of hypertension and elevated cholesterol. Related Data Home Medications ?Medication ?Instructions ?Recorded ?Confirmed levothyroxine 112 mcg tablet 112 mcg PO DAILY@0600 01/16/20 10/24/24 hydrochlorothiazide 25 mg tablet 25 mg PO DAILY 11/18/21 10/24/24 omeprazole 20 mg capsule,delayed 20 mg PO DAILY@0630 10/24/24 10/24/24 release Allergies Allergy/AdvReac Type Severity Reaction Status Date / Time No Known Allergies (No Known Allergy Verified 10/24/24 04:13 Allergies*) Review of Systems Review of Systems: Yes all other systems are reviewed and are negative [facility] Past Medical History Medical History Hx of renal calculi Elevated cholesterol HTN (hypertension) Rhinitis Hypothyroidism Hemorrhoids Bladder neck contracture Surgical History History of prostate surgery Hx of colonoscopy History of surgery Family History Family History Sister Lung cancer Kidney carcinoma Other Family history non-contributory Social History Social History Household Members: Family Household Members Other:: sister, family member Housing: House Do you presently have visiting nurse or other home services: No Alcohol intake: unknown Patient Tobacco Use Status: Never used Tobacco Physical Exam ED Vital Signs: Vital Signs - 24 hr 10/24/24 04:12 10/24/24 05:55 10/24/24 08:30 Temperature 98.5 F 98.4 F Pulse Rate 70 65 Respiratory Rate 20 16 16 Blood Pressure 164/88 H 154/94 H Pulse Oximetry 98 97 Oxygen Delivery Method Room Air Room Air 10/24/24 08:33 Temperature Pulse Rate 73 Respiratory Rate Blood Pressure 144/90 H Pulse Oximetry 96 Oxygen Delivery Method Room Air BMI result Body Mass Index 29.0 Const Other: The patient is awake and alert. He is pleasant and cooperative. He looks somewhat uncomfortable. Orientation/consciousness: patient oriented x3 HENMT Other: The face is symmetrical. Mucous membranes moist. Eyes General: appearance normal, both eyes and all related structures Neck Other: Neck: Yes normal visual inspection and Yes full ROM Resp Effort & Inspection: normal respiratory effort Auscultation: clear to auscultation bilaterally Cardio Rate: regular rate Rhythm: regular rhythm Heart sounds: S1 normal heart sound present and S2 normal heart sound present GI Other: some generalized upper abdominal tenderness. No definite Reynoso's sign. No abdominal rigidity. General: Yes no CVA tenderness Back/Spine/Pelvis Back: no CVA tenderness Skin Other: The skin is dry and unremarkable Neuro General: patient oriented x3, gait normal, tone normal, moves all extremities, no focal motor deficits and CN's II-XI intact bilaterally Extrem Other: There is no calf swelling or tenderness. No asymmetry. No peripheral edema. Medications Administered Generic Name Dose Route Start Last Admin Trade Name Freq PRN Reason Stop Dose Admin Enoxaparin Sodium 40 mg 10/24/24 12:00 10/24/24 11:59 Enoxaparin Sodium 40 Mg/0.4 Ml Syringe SUBCUT 40 mg Q24H MELONIE Administration Hydrochlorothiazide 25 mg 10/24/24 12:45 10/25/24 07:48 Hydrochlorothiazide 25 Mg Tablet PO 25 mg DAILY MELONIE Administration Protocol Lactated Ringer's 1,000 mls @ 125 mls/hr 10/24/24 10:30 10/25/24 03:26 Lr IVCONT 125 mls/hr .Q8H MELONIE Administration Levothyroxine Sodium 112 mcg 10/25/24 06:00 10/25/24 05:24 Levothyroxine Sodium 112 Mcg Tablet PO 112 mcg DAILY@0600 MELONIE Administration Omeprazole 20 mg 10/25/24 06:30 10/25/24 05:24 Omeprazole 20 Mg Capsule. PO 20 mg DAILY@0630 [facility] Administration Oxycodone HCl 5 mg 10/24/24 10:17 10/25/24 03:27 Oxycodone Hcl Immed Release 5 Mg Tablet PO 5 mg Q6H PRN Administration Pain, Moderate(Pain Scale 4-6) Sodium Chloride 3 ml 10/24/24 16:00 10/25/24 06:51 0.9 % Sodium Chloride Flush 3 Ml Syringe IVFLUSH Not Given QSHIFT MELONIE Discontinued Medications Generic Name Dose Route Start Last Admin Trade Name Freq PRN Reason Stop Dose Admin Droperidol 0.625 mg 10/24/24 08:03 10/24/24 08:31 Droperidol 5 Mg/2 Ml Vial IVPUSH 10/24/24 08:04 0.625 mg ONCE ONE Administration Sodium Chloride 1,000 mls @ 999 mls/hr 10/24/24 08:15 10/24/24 10:44 Ns IV 10/24/24 09:15 Infused .Q1H1M MELONIE Infusion Iohexol 100 ml 10/24/24 09:34 10/24/24 09:34 Iohexol 350 Mg/Ml 100 Ml Infus..Btl IV 10/24/24 09:35 85 ml ONCE ONE Administration Morphine Sulfate 4 mg 10/24/24 08:03 10/24/24 08:30 Morphine Sulfate 4 Mg/Ml Cartridge IVPUSH 10/24/24 08:04 4 mg ONCE ONE Administration Protocol Medical Decision Making Medical Decision Making [facility] Narrative: The patient is a 58-year-old male who presents with the abdominal pain. He has an elevated lipase. This suggests pancreatitis. A CT scan also confirms pancreatitis. I do not have a good etiology for his pancreatitis. He does not seem to be an alcoholic. His triglycerides are normal. In any event he seems sufficiently uncomfortable and this is a first-time episode for pancreatitis so he will be admitted to the hospitalist service. Lab Data 10/24/24 06:27 10/25/24 05:53 Labs: Lab Results 10/24/24 10/24/24 Range/Units 06:27 06:28 WBC 8.4 (4.8-10.8) X10*3/uL RBC 5.58 (4.60-5.80) X10*6/uL Hgb 16.9 (14.0-18.0) g/dl Hct 48.2 (42.0-52.0) % MCV 86.4 (80.0-98.0) fL MCH 30.3 (27.0-33.0) pg MCHC 35.1 (31.0-36.0) g/dl RDW 13.3 (11.0-16.0) % Plt Count 155 L (160-400) X10*3/uL MPV 9.4 (9.4-12.4) fL Immature Gran % (Auto) 0.2 (0.0-0.4) % Neut % (Auto) 83.0 H (45-73) % Lymph % (Auto) 11.0 L (20-40) % [place] % (Auto) 5.7 (2-11) % Eos % (Auto) 0.1 (0-4) % Baso % (Auto) 0.0 (0-2) % Lymph # (Auto) 0.9 L (1.2-4.9) X10*3/uL [place] # (Auto) 0.5 (0.1-1.2) X10*3/uL Eos # (Auto) 0.0 (0.0-0.4) X10*3/uL Baso # (Auto) 0.0 (0.0-0.2) X10*3/uL Abs Immat Gran (auto) 0.02 (0.00-0.03) X10*3/uL Absolute Neuts (auto) 7.0 (2.0-8.3) x10*3/uL Absolute Nucleated RBC 0.000 (0.0-0.012) X10*3/uL Nucleated RBC % (auto) 0.0 (0.0-0.2) /100WBC Sodium 143 (135-145) mmol/L Potassium 4.1 (3.3-5.1) mmol/L Chloride 106 (96-108) mmol/L Carbon Dioxide 28 (22-29) mmol/L Anion Gap 13 (12-20) BUN 27 H (9-16) mg/dL Creatinine 1.05 (0.5-1.4) mg/dL Estim Creat Clear Calc 77.4 Estimated GFR > 60 Random Glucose 125 H (60-115) mg/dL Calcium 9.2 D (8.4-10.2) mg/dL Total Bilirubin 0.6 (0.0-1.0) mg/dL AST 37 (5-37) U/L ALT 66 H (0-40) U/L Alkaline Phosphatase 83 (39-117) U/L Total Protein 6.9 (6.5-8.0) g/dL Albumin 4.1 (3.5-5.0) g/dL Triglycerides 79 (<150) mg/dL Lipase 447 H (8-78) U/L Ethyl Alcohol < 10 mg/dL Discharge Plan Discharge Clinical Impression: Acute pancreatitis Qualifiers: Pancreatitis type: biliary Acute pancreatitis complication: no infection or necrosis Qualified Code(s): K85.10 - Biliary acute pancreatitis without necrosis or infection Patient Disposition: Admitted As Inpatient Interventions: Admission Worksheet (ED) Last Done: 10/24/24 14:36 Discharge Date/Time: 10/24/24 15:12
--- NOTE | 2024-10-24 08:08 | ECG_ITS ---
Test Reason : abd pain Blood Pressure : */* mmHG Vent. Rate : 70 BPM Atrial Rate : 70 BPM P-R Int : 180 ms QRS Dur : 84 ms QT Int : 406 ms P-R-T Axes : 39 -15 24 degrees QTcB Int : 438 ms Normal sinus rhythm Normal ECG No previous ECGs available Referred By: Piotr Ortiz Electronically Signed By: EILEEN MONZON
[2024-10-24 08:50] LABS: Triglycerides 79 mg/dL (<150)
[2024-10-24] MEDS: iohexoL 350 MG/ML 100 ML INFUS..BTL IV (09:34)
--- NOTE | 2024-10-24 10:27 | P.HPHOSP_ITS ---
History of Present Illness Date of Service: 10/24/24 Attending physician on admission: [facility] Chief Complaint: Acute pancreatitis 58-year-old male with a past medical history of hypertension, hyperlipidemia, GERD, overactive bladder presents to the ED with abdominal pain that developed yesterday evening after eating an omelet. Pain was persistent across his upper abdomen, which radiated to his back. He reports nausea and vomiting several times yesterday. Patient reports that for about a year he has been having very difficult time with pain and bloating with most food intake. He is unaware of any weight loss, denies any constipation, denies any blood in his stools, reports an occasional sour taste in his mouth. Patient had a colonoscopy and EGD in 2020, with recommendations to repeat in 10 years. Pathology negative. Patient denies any dizziness, lightheadedness, vomiting, fever, chills, chest pain, difficulty breathing, shortness of breath, back pain, pain with urination, blood in his urine or stool or any other complaints at this time. Patient denies any smoking history, denies any marijuana or illicit drug use. Patient denies any alcohol intake. He reports that he has been taking Mylanta twice a day, and omeprazole on occasion. His EKG demonstrated normal sinus rhythm, no leukocytosis, no anemia. Patient's AST is 37, ALT 66, lipase is 447. Patient was previously seen by Dr. Pablo in 2020 who recommended a lap nora which was not done at that time, HPI collected with the assistance of [employer] nursing home manager #[id number] Review of Systems 2 Review of Systems: See HPI. Yes all other systems are reviewed and are negative [facility] Medical History Hx of renal calculi Elevated cholesterol HTN (hypertension) Rhinitis Hypothyroidism Hemorrhoids Bladder neck contracture Family History Sister Lung cancer Kidney carcinoma Other Family history non-contributory Surgical History History of prostate surgery Hx of colonoscopy History of surgery Social History Household Members: Family Household Members Other:: sister, family member Housing: House Do you presently have visiting nurse or other home services: No Alcohol intake: unknown Patient Tobacco Use Status: Never used Tobacco Meds Allergies Allergy/AdvReac Type Severity Reaction Status Date / Time No Known Allergies (No Known Allergy Verified 10/24/24 04:13 Allergies*) Active Medications: Current Medications Acetaminophen (Acetaminophen 325 Mg Tablet) 650 mg PO Q6H PRN PRN Reason: Pain, Mild 1-3,fever,headache Calcium Carbonate (Calcium Carbonate 750 Mg Tab.Chew) 750 mg PO Q4H PRN PRN Reason: Heartburn Hydromorphone HCl (Hydromorphone Hcl 1 Mg/Ml Syringe) 0.5 mg IVPUSH Q4H PRN; Protocol PRN Reason: Pain, Severe (Pain Scale 7-10) Lactated Ringer's (Lr) 1,000 mls @ 125 mls/hr IVCONT .Q8H MELONIE Magnesium Hydroxide (Milk Of Magnesia 30 Ml Oral.Susp) 30 ml PO DAILY PRN PRN Reason: Constipation Melatonin (Melatonin 3 Mg Tablet) 6 mg PO BEDTIME PRN PRN Reason: Insomnia Oxycodone HCl (Oxycodone Hcl Immed Release 5 Mg Tablet) 5 mg PO Q6H PRN PRN Reason: Pain, Moderate(Pain Scale 4-6) Polyethylene Glycol (Polyethylene Glycol 3350 17 Gm Powd.Pack) 17 gm PO DAILY PRN PRN Reason: Constipation Sodium Chloride (0.9 % Sodium Chloride Flush 3 Ml Syringe) 3 ml IVFLUSH QSHIFT [facility] Home Medications ?Medication ?Instructions ?Recorded ?Confirmed ?Last Taken ?Type levothyroxine 112 mcg tablet 112 mcg PO DAILY@0600 09/2910/24/24 10/22/24 History hydrochlorothiazide 25 mg tablet 25 mg PO DAILY 10/24/24 10/22/24 History omeprazole 20 mg capsule,delayed 20 mg PO DAILY@0630 0 10/24/24 10/24/24 10/22/24 History release Physical Exam 2 Vital Signs and Narrative: Vital Signs: Last Vital Signs Temp 98.4 F 10/24/24 05:55 Pulse 73 10/24/24 08:33 Resp 16 10/24/24 08:30 BP 144/90 H 10/24/24 08:33 Pulse Ox 96 10/24/24 08:33 O2 Del Method Room Air 10/24/24 08:33 BMI result Body Mass Index 29.0 Alert and oriented X3, able to give good history. Neuro: CN II-X11 intact ENT: Hearing intact, lips moist Cardiac: S1 S2 RRR, No ectopy Pulmonary: lungs clear to auscultation, No increased WOB. Abdominal: BS active in all 4 quadrants, no guarding or tenderness. Discomfort epigastric region. MSK: Strength 5/5 upper and lower extremities : Deferred Extremities: No edema in lower extremities Psych: Quiet and cooperative. Skin: Warm and dry, Intact Results Labs 10/24/24 06:27 10/25/24 05:53 Labs: Laboratory Results - last 24 hr 10/24/24 10/24/24 06:27 06:28 MCV 86.4 MCH 30.3 MCHC 35.1 RDW 13.3 Plt Count 155 L MPV 9.4 Immature Gran % (Auto) 0.2 Neut % (Auto) 83.0 H Lymph % (Auto) 11.0 L [place] % (Auto) 5.7 Eos % (Auto) 0.1 Baso % (Auto) 0.0 Lymph # (Auto) 0.9 L [place] # (Auto) 0.5 Eos # (Auto) 0.0 Baso # (Auto) 0.0 Abs Immat Gran (auto) 0.02 Absolute Neuts (auto) 7.0 Absolute Nucleated RBC 0.000 Nucleated RBC % (auto) 0.0 Anion Gap 13 Estim Creat Clear Calc 77.4 Estimated GFR > 60 Random Glucose 125 H Calcium 9.2 D Total Bilirubin 0.6 AST 37 ALT 66 H Alkaline Phosphatase 83 Total Protein 6.9 Albumin 4.1 Triglycerides 79 Lipase 447 H Ethyl Alcohol < 10 Imaging Radiologist's Impressions: Impressions Abdomen/Pelvis CT 10/24/24 08:26 IMPRESSION: Acute noncomplicated pancreatitis. Small volume of free fluid lesser sac and retroperitoneum. Cholelithiasis. Hepatic steatosis. Fleischner guidelines were followed. Electronically signed by: Miguel Hernandez MD 10/24/2024 09:53 AM EDT RP Assessment and Plan (1) Acute pancreatitis: Status: Acute Plan 58-year-old male with past medical history of hypertension, hyperlipidemia, GERD, hypothyroidism and overactive bladder, history of prostate issues, presented to the ED with abdominal pain worsening since last evening after eating. He was found to have acute pancreatitis. He will be admitted for further care. Medication reconciliation not completed at time of exam. Acute pancreatitis/Suspected secondary to cholelithiasis. IVF, IV analgesics, bowel rest Lipase noted to be 446, ALT slightly elevated at 66. Patient with a history of hepatic steatosis. No leukocytosis no anemia. No hypertriglyceridemia, No ETOH history Continue IV fluids, Zofran for nausea and pain management Follow labs Consult surgery- keep NPO Hypertension/hyperlipidemia Continue home meds CODE STATUS: FULL CODE VTE Prophylaxis: Lovenox Quality Stroke Does the patient have a stroke diagnosis?: No VTE Prior VTE?: No VTE Risk Level:: Medical - moderate - high VTE Device Contraindication: Treatment Not Indicated VTE Drug Contraindication: N/A - Med Ordered
[2024-10-24] MEDS: Lactated Ringers 1,000 ML 125 ML IVCONT ×2 (10:44→21:27)
--- NOTE | 2024-10-24 10:46 | PC.NURSE ---
Pt roomed and placed on 1/2 monitor- VSS C/O abd pain and nausea. IV initiated as ordered. Pt being seen by hospitalist now.
--- NOTE | 2024-10-24 11:50 | PC.NURSE ---
Pt ambulating to and from BR independently- VSS NAD asking for OJ, pt educated about NPO status. Verbalizes understanding.
[2024-10-24 11:59] LABS: Appearance Urine Clear; Glucose Urine UA Negative (Negative); PH 7.0 (5.0-9.0); Specific Gravity - Urine >= 1.030 (1.005-1.025)
--- NOTE | 2024-10-24 12:09 | PHA.MEDREC ---
Addendum entered by Nando Romo [facility] 10/24/24 12:29: Reviewed by [facility]. Pt states he is on Lipitor, but the pharmacy has not filled this since 2021. This was removed from the [facility] rec. Original Note: Pharmacy Consult ? Medication Reconciliation Pharmacy has completed the medication reconciliation. Spoke with pt, utilizing high school social studies teacher, and pt was able to confirm his medications. Pt states he still takes Atorvastatin and Omeprazole and is filling them at [facility], despite no claims being found for Atorvastatin and last time Omeprazole being filled was 03/2024 for 90 days; I called [facility] and they state the Atorvastatin hasn't been processed/filled through their facility since 2021 and the Omeprazole was last filled 04/07 for 90 days.
--- NOTE | 2024-10-24 12:37 | PM.CNGS ---
History of Present Illness Consult details Consult date: 10/24/24 Reason for consult: abdominal pain Narrative: 58-year-old male patient presenting with complaints of abdominal pain in the epigastrium radiating into the back. The pain began yesterday afternoon and was quite severe. He subsequently presented to the emergency department for further evaluation. He has a known history of cholelithiasis and previously a laparoscopic cholecystectomy was recommended. Patient was noted to have tenderness in the epigastrium and right upper quadrant. Workup revealed normal WBC and LFTs but mildly elevated lipase level of 447. CT abdomen and pelvis confirmed evidence of acute pancreatitis and gallstones within the gallbladder. Surgical consultation was requested for possible cholecystectomy. Review of Systems Review of Systems: Yes all other systems are reviewed and are negative PMFSH Past Medical History Medical History Hx of renal calculi Elevated cholesterol HTN (hypertension) Rhinitis Hypothyroidism Hemorrhoids Bladder neck contracture Family History Family History Sister Lung cancer Kidney carcinoma Other Family history non-contributory Surgical History Surgical History History of prostate surgery Hx of colonoscopy History of surgery Social History Social History Alcohol intake: unknown Patient Tobacco Use Status: Never used Tobacco Smoked in Last 30 Days: No Use of substances other than those prescribed or required for medical reasons: No Advance Directives: No Advance Directives Information Provided: Yes Meds Allergies Allergy/AdvReac Type Severity Reaction Status Date / Time No Known Allergies (No Known Allergy Verified 10/24/24 04:13 Allergies*) Active Medications: Current Medications Acetaminophen (Acetaminophen 325 Mg Tablet) 650 mg PO Q6H PRN PRN Reason: Pain, Mild 1-3,fever,headache Calcium Carbonate (Calcium Carbonate 750 Mg Tab.Chew) 750 mg PO Q4H PRN PRN Reason: Heartburn Enoxaparin Sodium (Enoxaparin Sodium 40 Mg/0.4 Ml Syringe) 40 mg SUBCUT Q24H MELONIE Last Admin: 10/24/24 11:59 Dose: 40 mg Hydromorphone HCl (Hydromorphone Hcl 1 Mg/Ml Syringe) 0.5 mg IVPUSH Q4H PRN; Protocol PRN Reason: Pain, Severe (Pain Scale 7-10) Lactated Ringer's (Lr) 1,000 mls @ 125 mls/hr IVCONT .Q8H [facility] Last Admin: 10/24/24 10:44 Dose: 125 mls/hr Magnesium Hydroxide (Milk Of Magnesia 30 Ml Oral.Susp) 30 ml PO DAILY PRN PRN Reason: Constipation Melatonin (Melatonin 3 Mg Tablet) 6 mg PO BEDTIME PRN PRN Reason: Insomnia Ondansetron HCl (Ondansetron Hcl 4 Mg/2 Ml Vial) 4 mg IVPUSH Q8H PRN PRN Reason: Nausea and Vomiting Oxycodone HCl (Oxycodone Hcl Immed Release 5 Mg Tablet) 5 mg PO Q6H PRN PRN Reason: Pain, Moderate(Pain Scale 4-6) Polyethylene Glycol (Polyethylene Glycol 3350 17 Gm Powd.Pack) 17 gm PO DAILY PRN PRN Reason: Constipation Sodium Chloride (0.9 % Sodium Chloride Flush 3 Ml Syringe) [facility] Medications ?Medication ?Instructions ?Recorded ?Confirmed ?Last Taken ?Type levothyroxine 112 mcg tablet 112 mcg PO DAILY@0600 01/16/20 10/24/24 10/22/24 History hydrochlorothiazide 25 mg tablet 25 mg PO DAILY 11/18/21 10/24/24 10/22/24 History omeprazole 20 mg capsule,delayed 20 mg PO DAILY@0630 10/24/24 10/24/24 10/22/24 History release Physical Exam Vital Signs: Vital Signs: Last Vital Signs Temp 97.9 F 10/24/24 11:49 Pulse 64 10/24/24 11:49 Resp 16 10/24/24 11:49 BP 151/79 H 10/24/24 11:49 Pulse Ox 98 10/24/24 11:49 O2 Del Method Room Air 10/24/24 11:49 BMI result Body Mass Index 29.0 Const: General: cooperative and no acute distress Nutritional Appearance: well nourished Orientation/consciousness: patient oriented x3 Limitations: no limitations HEENT: Head: Yes normocephalic and Yes atraumatic Ears: hearing grossly normal bilaterally Resp: Effort & Inspection: normal respiratory effort, no audible wheezes, no cough and no respiratory distress Cardio: Jugular venous distension: no JVD GI: Other: Soft, nondistended, mild tenderness in the epigastrium deep palpation without rebound, guarding or rigidity. Negative Reynoso sign. Inspection: Yes normal to inspection Skin: Other: Warm, dry, no rash, non jaundiced Neuro: General: patient oriented x3 Extrem: General: Yes no clubbing, cyanosis or edema Results Labs 10/24/24 06:27 10/24/24 06:28 Labs: Abnormal lab results 10/24/24 10/24/24 10/24/24 Range/Units 06:27 06:28 11:45 Plt Count 155 L (160-400) X10*3/uL Neut % (Auto) 83.0 H (45-73) % Lymph % (Auto) 11.0 L (20-40) % Lymph # (Auto) 0.9 L (1.2-4.9) X10*3/uL BUN 27 H (9-16) mg/dL Random Glucose 125 H (60-115) mg/dL ALT 66 H (0-40) U/L Lipase 447 H (8-78) U/L Ur Specific [place] >= 1.030 H (1.005-1.025) Short CBC 10/24/24 Range/Units 06:27 WBC 8.4 (4.8-10.8) X10*3/uL Hgb 16.9 (14.0-18.0) g/dl Hct 48.2 (42.0-52.0) % Plt Count 155 L (160-400) X10*3/uL BMP 10/24/24 06:28 Sodium 143 Potassium 4.1 Chloride 106 Carbon Dioxide 28 BUN 27 H Creatinine 1.05 Calcium 9.2 D Liver Function 10/24/24 Range/Units 06:28 Total Bilirubin 0.6 (0.0-1.0) mg/dL AST 37 (5-37) U/L ALT 66 H (0-40) U/L Alkaline Phosphatase 83 (39-117) U/L Albumin 4.1 (3.5-5.0) g/dL Urine 10/24/24 Range/Units 11:45 Urine Color Yellow Urine Appearance Clear Urine pH 7.0 (5.0-9.0) Ur Specific [place] >= 1.030 H (1.005-1.025) Urine Protein Negative (Neg-Trace) mg/dL Urine Glucose (UA) Negative (Negative) mg/dL All other labs normal. Imaging Abdomen CT scan report/results: report reviewed and image reviewed CT scan - pelvis: report reviewed and image reviewed Assessment and Plan (1) Acute pancreatitis: Qualifiers: Pancreatitis type: biliary Acute pancreatitis complication: no infection or necrosis Qualified Code(s): K85.10 - Biliary acute pancreatitis without necrosis or infection Status: Acute (2) Cholelithiasis: Qualifiers: Biliary obstruction: without biliary obstruction Cholecystitis presence: without cholecystitis Cholelithiasis location: gallbladder Qualified Code(s): K80.20 - Calculus of gallbladder without cholecystitis without obstruction Status: Acute Plan 58-year-old male patient presenting with complaints of epigastric abdominal pain found on workup to have apparent gallstone pancreatitis. Patient reports the abdominal pain is improved this morning but he still has some tenderness in the epigastrium. Review of the CT abdomen and pelvis does show extensive inflammation surrounding the pancreas suggestive of acute pancreatitis. No definite choledocholithiasis or ductal dilatation was identified but MRCP would be helpful confirmed a clear common bile duct. I recommended laparoscopic cholecystectomy once the pancreatitis improves to prevent further episodes of pancreatitis. Procedures Date of Service Date of Service: 10/24/24
[2024-10-24] MEDS: 0.9 % Sodium Chloride Flush 3 ML SYRINGE IVFLUSH (16:26)
[2024-10-25] MEDS: Lactated Ringers 1,000 ML 125 ML IVCONT ×3 (03:26→19:15)
[2024-10-25] MEDS: oxyCODONE HCl Immed Release 5 MG TABLET PO (03:27)
[2024-10-25 04:00] VITALS: BP 128/77; PULSE 71; RESP 18; TEMP 36.8; O2SAT 96
[2024-10-25 06:46] LABS: Anion Gap 12 (12-20); Blood Urea Nitrogen 16 mg/dL (9-16); Calcium 8.3 mg/dL (8.4-10.2); Carbon Dioxide 27 mmol/L (22-29); Chloride 103 mmol/L (96-108); Creatinine Clr Calc Pharmacy 83.4; Estimated Glomerular Filt Rate > 60; Lipase 58 U/L (8-78); Potassium 3.5 mmol/L (3.3-5.1); Sodium 138 mmol/L (135-145)
[2024-10-25 07:44] VITALS: BP 127/77; PULSE 79; RESP 16; TEMP 37.1; O2SAT 95
--- NOTE | 2024-10-25 07:44 | PM.PNGS ---
Subjective Subjective Date of Service: 10/25/24 <Usama Ross PA-C - Last Filed: 10/25/24 08:01> 10/25/24 <Jaime Tomas MD - Last Filed: 10/25/24 07:59> Interval history: pain is improved today, now a 4/10. He is comfortable at rest. endorses mild nausea. He is still passing gas, no bowel movements. he denies fever or chills <Usama Ross PA-C - Last Filed: 10/25/24 08:01> Physical Exam Vital Signs: Vital Signs: Last Vital Signs Temp 98.3 F 10/25/24 04:00 Pulse 71 10/25/24 04:00 Resp 18 10/25/24 04:00 BP 128/77 10/25/24 04:00 Pulse Ox 96 10/25/24 04:00 O2 Del Method Room Air 10/25/24 04:00 BMI result Body Mass Index 26.9 <Usama Ross PA-C - Last Filed: 10/25/24 08:01> Const: General: comfortable and no acute distress <Usama Ross PA-C - Last Filed: 10/25/24 08:01> Orientation/consciousness: patient oriented x3 <JASON Ball Last Filed: 10/25/24 08:01> Resp: Effort & Inspection: normal respiratory effort and able to speak in complete sentences <Usama Ross PA-C - Last Filed: 10/25/24 08:01> GI: Inspection: No distended <JASON Ball Last Filed: 10/25/24 08:01> Palpation (GI): Soft to palpation, not firm, Tenderness to palpation present (GI) (mild epigastric ) and no guarding <Usama Ross PA-C - Last Filed: 10/25/24 08:01> Neuro: General: patient oriented x3 <JASON Ball Last Filed: 10/25/24 08:01> Objective Data Active Medications Acetaminophen (Acetaminophen 325 Mg Tablet) 650 mg PO Q6H PRN PRN Reason: Pain, Mild 1-3,fever,headache Calcium Carbonate (Calcium Carbonate 750 Mg Tab.Chew) 750 mg PO Q4H PRN PRN Reason: Heartburn Enoxaparin Sodium (Enoxaparin Sodium 40 Mg/0.4 Ml Syringe) 40 mg SUBCUT Q24H [facility] Last Admin: 10/24/24 11:59 Dose: 40 mg Documented By: BRANDON Hydrochlorothiazide (Hydrochlorothiazide 25 Mg Tablet) 25 mg PO DAILY [facility]; Protocol Last Admin: 10/24/24 13:59 Dose: 25 mg Documented By: BRANDON Hydromorphone HCl (Hydromorphone Hcl 1 Mg/Ml Syringe) 0.5 mg IVPUSH Q4H PRN; Protocol PRN Reason: Pain, Severe (Pain Scale 7-10) Lactated Ringer's (Lr) 1,000 mls @ 125 mls/hr IVCONT .Q8H [facility] Last Admin: 10/25/24 03:26 Dose: 125 mls/hr Documented By: HUSSEIN Levothyroxine Sodium (Levothyroxine Sodium 112 Mcg Tablet) 112 mcg PO DAILY@0600 [facility] Last Admin: 10/25/24 05:24 Dose: 112 mcg Documented By: HUSSEIN Magnesium Hydroxide (Milk Of Magnesia 30 Ml Oral.Susp) 30 ml PO DAILY PRN PRN Reason: Constipation Melatonin (Melatonin 3 Mg Tablet) 6 mg PO BEDTIME PRN PRN Reason: Insomnia Omeprazole (Omeprazole 20 Mg Capsule.Dr) 20 mg PO DAILY@0630 [facility] Last Admin: 10/25/24 05:24 Dose: 20 mg Documented By: HUSSEIN Ondansetron HCl (Ondansetron Hcl 4 Mg/2 Ml Vial) 4 mg IVPUSH Q8H PRN PRN Reason: Nausea and Vomiting Oxycodone HCl (Oxycodone Hcl Immed Release 5 Mg Tablet) 5 mg PO Q6H PRN PRN Reason: Pain, Moderate(Pain Scale 4-6) Last Admin: 10/25/24 03:27 Dose: 5 mg Documented By: HUSSEIN Polyethylene Glycol (Polyethylene Glycol 3350 17 Gm Powd.Pack) 17 gm PO DAILY PRN PRN Reason: Constipation Sodium Chloride (0.9 % Sodium Chloride Flush 3 Ml Syringe) 3 ml IVFLUSH QSHIFT [facility] Last Admin: 10/25/24 06:51 Dose: Not Given Documented By: JANES Non-Admin Reason: IV Running <Usama Ross PA-C - Last Filed: 10/25/24 08:01> Labs CBC & Chem 7: 10/24/24 06:27 10/25/24 05:53 <Usama Ross PA-C - Last Filed: 10/25/24 08:01> Labs: Laboratory Results - last 24 hr 10/24/24 10/24/24 10/25/24 06:28 11:45 05:53 Anion Gap 12 Estim Creat Clear Calc 83.4 Estimated GFR > 60 Random Glucose 109 Calcium 8.3 L D Triglycerides 79 Lipase 58 Urine Color Yellow Urine Appearance Clear Urine pH 7.0 Ur Specific [place] >= 1.030 H Urine Protein Negative Urine Glucose (UA) Negative Urine Ketones Negative Urine Blood Negative Urine Nitrite Negative Ur Leukocyte Esterase Negative Ethyl Alcohol < 10 <Usama Ross PA-C - Last Filed: 10/25/24 08:01> Procedures Date of Service Date of Service: 10/25/24 <Usama Ross PA-C - Last Filed: 10/25/24 08:01> 10/25/24 <Jaime Tomas MD - Last Filed: 10/25/24 07:59> Progress Note: A&P Assessment and plan (1) Cholelithiasis: Status: Acute <Usama Ross PA-C - Last Filed: 10/25/24 08:01> (2) Acute pancreatitis: Status: Acute <Usama Ross PA-C - Last Filed: 10/25/24 08:01> Assessment and Plan: 58 year old male admitted for management of acute pancreatitis. Patient has known cholelithiasis. Patient had MRCP yesterday, i reviewed the imaging showing cholelithiasis, it did not show a CBD stone or dilation, it also did not show acute cholecystitis. Today his AM labs show improvement of lipase to 58. Management has included bowel rest, IV abx, IVF. He is tolerating this well. His pain is much improved, now 4/10. He continues to have mild nausea, states that he is very hungry. He is passing gas, no BM. On exam his abdomen is soft, very mildly tender in the epigastric area. Patient agreeable to proceeding with laparascopic cholecystectomy this admission. Will add patient on for morning. NPO midnight Continue pain regimen IV abx and fluids Lap nora possible open tomorrow Patient seen and examined independently. Overall he feels much improved with minimal abdominal pain mainly in the epigastrium. MRCP reviewed, confirms cholelithiasis without choledocholithiasis. No wall thickening or pericholecystic fluid. Normal common bile duct. I recommended proceeding to laparoscopic or possible open cholecystectomy. He has been placed on the OR schedule for tomorrow morning. I reviewed the procedure, risks, and alternatives and he consents to the surgery. <Usama Ross PA-C - Last Filed: 10/25/24 08:01> 58 year old male admitted for management of acute pancreatitis. Patient has known cholelithiasis. Patient had MRCP yesterday, i reviewed the imaging showing cholelithiasis, it did not show a CBD stone or dilation, it also did not show acute cholecystitis. Today his AM labs show improvement of lipase to 58. Management has included clear liquids, IV abx. He is tolerating this well. His pain is much improved, now 4/10. He continues to have mild nausea, states that he is very hungry. He is passing gas, no BM. On exam his abdomen is soft, very mildly tender in the epigastric area. Patient agreeable to proceeding with laparascopic cholecystectomy this admission. Will add patient on for morning. NPO midnight, can continue with clears today Continue pain regimen IV abx and fluids Lap nora possible open tomorrow Patient seen and examined independently. Overall he feels much improved with minimal abdominal pain mainly in the epigastrium. MRCP reviewed, confirms cholelithiasis without choledocholithiasis. No wall thickening or pericholecystic fluid. Normal common bile duct. I recommended proceeding to laparoscopic or possible open cholecystectomy. He has been placed on the OR schedule for tomorrow morning. I reviewed the procedure, risks, and alternatives and he consents to the surgery. <Jaime Tomas MD - Last Filed: 10/25/24 07:59> Time Spent With Patient Time: Total time managing care of this patient today ____ minutes. <Usama Ross PA-C - Last Filed: 10/25/24 08:01> Quality Stroke Does the patient have a stroke diagnosis?: No <Usama Ross PA-C - Last Filed: 10/25/24 08:01> VTE Prior VTE?: No <Usama Ross PA-C - Last Filed: 10/25/24 08:01> VTE Risk Level:: Medical - moderate - high <Usama Ross PA-C - Last Filed: 10/25/24 08:01> VTE Device Contraindication: Treatment Not Indicated <Usama Ross PA-C - Last Filed: 10/25/24 08:01> VTE Drug Contraindication: N/A - Med Ordered <Usama Ross PA-C - Last Filed: 10/25/24 08:01>
--- NOTE | 2024-10-25 08:18 | HO.PM.IMPN ---
Subjective Subjective Date of Service: 10/25/24 Interval History: f/u on gallstone pancreatitis, no pain today, lipase back to normal Physical Exam Vital Signs: Vital Signs: Last Vital Signs Temp 98.7 F 10/25/24 07:44 Pulse 79 10/25/24 07:44 Resp 16 10/25/24 07:44 BP 127/77 10/25/24 07:44 Pulse Ox 95 10/25/24 07:44 O2 Del Method Room Air 10/25/24 07:44 BMI result Body Mass Index 26.9 Const: Other: General: AO X 3, no acute distress Resp: CTA bilateral CVS: S1,S2,RRR GI: +BS, NT, no distention Skin: No rash Neuro: motor grossly intact Psych: appropriate affect Objective Data Active Medications Acetaminophen (Acetaminophen 325 Mg Tablet) 650 mg PO Q6H PRN PRN Reason: Pain, Mild 1-3,fever,headache Calcium Carbonate (Calcium Carbonate 750 Mg Tab.Chew) 750 mg PO Q4H PRN PRN Reason: Heartburn Enoxaparin Sodium (Enoxaparin Sodium 40 Mg/0.4 Ml Syringe) 40 mg SUBCUT Q24H [facility] Last Admin: 10/24/24 11:59 Dose: 40 mg Documented By: BRANDON Hydrochlorothiazide (Hydrochlorothiazide 25 Mg Tablet) 25 mg PO DAILY [facility]; Protocol Last Admin: 10/25/24 07:48 Dose: 25 mg Documented By: JANES Hydromorphone HCl (Hydromorphone Hcl 1 Mg/Ml Syringe) 0.5 mg IVPUSH Q4H PRN; Protocol PRN Reason: Pain, Severe (Pain Scale 7-10) Lactated Ringer's (Lr) 1,000 mls @ 125 mls/hr IVCONT .Q8H [facility] Last Admin: 10/25/24 03:26 Dose: 125 mls/hr Documented By: HUSSEIN Levothyroxine Sodium (Levothyroxine Sodium 112 Mcg Tablet) 112 mcg PO DAILY@0600 [facility] Last Admin: 10/25/24 05:24 Dose: 112 mcg Documented By: HUSSEIN Magnesium Hydroxide (Milk Of Magnesia 30 Ml Oral.Susp) 30 ml PO DAILY PRN PRN Reason: Constipation Melatonin (Melatonin 3 Mg Tablet) 6 mg PO BEDTIME PRN PRN Reason: Insomnia Omeprazole (Omeprazole 20 Mg Capsule.) 20 mg PO DAILY@0630 [facility] Last Admin: 10/25/24 05:24 Dose: 20 mg Documented By: HUSSEIN Ondansetron HCl (Ondansetron Hcl 4 Mg/2 Ml Vial) 4 mg IVPUSH Q8H PRN PRN Reason: Nausea and Vomiting Oxycodone HCl (Oxycodone Hcl Immed Release 5 Mg Tablet) 5 mg PO Q6H PRN PRN Reason: Pain, Moderate(Pain Scale 4-6) Last Admin: 10/25/24 03:27 Dose: 5 mg Documented By: HUSSEIN Polyethylene Glycol (Polyethylene Glycol 3350 17 Gm Powd.Pack) 17 gm PO DAILY PRN PRN Reason: Constipation Sodium Chloride (0.9 % Sodium Chloride Flush 3 Ml Syringe) 3 ml IVFLUSH QSHIFT [facility] Last Admin: 10/25/24 06:51 Dose: Not Given Documented By: JANES Non-Admin Reason: IV Running Labs 10/24/24 06:27 10/25/24 05:53 Labs: Laboratory Results - last 24 hr 10/24/24 10/24/24 10/25/24 06:28 11:45 05:53 Anion Gap 12 Estim Creat Clear Calc 83.4 Estimated GFR > 60 Random Glucose 109 Calcium 8.3 L D Triglycerides 79 Lipase 58 Urine Color Yellow Urine Appearance Clear Urine pH 7.0 Ur Specific [place] >= 1.030 H Urine Protein Negative Urine Glucose (UA) Negative Urine Ketones Negative Urine Blood Negative Urine Nitrite Negative Ur Leukocyte Esterase Negative Ethyl Alcohol < 10 Assessment and Plan (1) Cholelithiasis: Status: Acute (2) Acute pancreatitis: Status: Acute Plan 58-year-old male with past medical history of hypertension, hyperlipidemia, GERD, hypothyroidism and overactive bladder, history of prostate issues, presented to the ED with abdominal pain worsening since last evening after eating. He was found to have acute pancreatitis. He will be admitted for further care. Medication reconciliation not completed at time of exam. Acute pancreatitis secondary to cholelithiasism, pancreatitis resolved lipase 447-->today MRCP confirmed pancreatitis and cholelithiasis, no cholecystitis For CCY tomorrow 10/26 Clear liquid diet today Hypertension HCTZ Hypothyroidism Levothyroxine CODE STATUS: FULL CODE VTE Prophylaxis: Lovenox Quality Stroke Does the patient have a stroke diagnosis?: No VTE Prior VTE?: No VTE Risk Level:: Medical - moderate - high VTE Device Contraindication: Treatment Not Indicated VTE Drug Contraindication: N/A - Med Ordered
--- NOTE | 2024-10-25 14:50 | HO.ANESPROP2 ---
Documented by User: Avelina Sosua NP 10/25/24 15:05 HPI - Anesthesia Eval Consult details Narrative: 58 yr old male for Cholecystectomy Laparoscopic,possible open. No recent illness. No CP/SOB with ADLs. PMFSH Active Problems Active Problems: All Active Problems (Updated 10/24/24 @ 12:41 by Jaime Tomas MD) Cholelithiasis (Acute) Acute pancreatitis (Acute) Overactive bladder (Acute) Urinary urgency (Acute) UTI (urinary tract infection) (Acute) Bladder outlet obstruction (Acute) Weak urinary stream (Acute) Nocturia more than twice per night (Acute) Nephrolithiasis (Acute) Past Medical History Medical History Hx of renal calculi Elevated cholesterol HTN (hypertension) Rhinitis Hypothyroidism Hemorrhoids Bladder neck contracture Functional capacity: independent ambulation Family History Family History Sister Lung cancer Kidney carcinoma Other Family history non-contributory Family history of problems with anesthesia: No Surgical History Surgical History History of prostate surgery Hx of colonoscopy History of surgery History of Problems with Anesthesia: No Social History Social History Household Members: Family Household Members Other:: sister, family member Housing: House Do you presently have visiting nurse or other home services: No Alcohol intake: unknown Patient Tobacco Use Status: Never used Tobacco service: No Meds Allergies Allergy/AdvReac Type Severity Reaction Status Date / Time No Known Allergies (No Known Allergy Verified 10/24/24 04:13 Allergies*) Active Medications: Current Medications Acetaminophen (Acetaminophen 325 Mg Tablet) 650 mg PO Q6H PRN PRN Reason: Pain, Mild 1-3,fever,headache Calcium Carbonate (Calcium Carbonate 750 Mg Tab.Chew) 750 mg PO Q4H PRN PRN Reason: Heartburn Cefotetan Disodium (Cefotetan Disodium 2 Gm Vial) 2 gm IVPUSH PREOP ONE Stop: 10/26/24 07:31 Enoxaparin Sodium (Enoxaparin Sodium 40 Mg/0.4 Ml Syringe) 40 mg SUBCUT Q24H [facility] On Hold: 10/25/24 11:30 Last Admin: 10/24/24 11:59 Dose: 40 mg Hydrochlorothiazide (Hydrochlorothiazide 25 Mg Tablet) 25 mg PO DAILY [facility]; Protocol Last Admin: 10/25/24 07:48 Dose: 25 mg Hydromorphone HCl (Hydromorphone Hcl 1 Mg/Ml Syringe) 0.5 mg IVPUSH Q4H PRN; Protocol PRN Reason: Pain, Severe (Pain Scale 7-10) Lactated Ringer's (Lr) 1,000 mls @ 125 mls/hr IVCONT .Q8H [facility] Last Admin: 10/25/24 12:04 Dose: 125 mls/hr Levothyroxine Sodium (Levothyroxine Sodium 112 Mcg Tablet) 112 mcg PO DAILY@06 [facility] Last Admin: 10/25/24 05:24 Dose: 112 mcg Magnesium Hydroxide (Milk Of Magnesia 30 Ml Oral.Susp) 30 ml PO DAILY PRN PRN Reason: Constipation Melatonin (Melatonin 3 Mg Tablet) 6 mg PO BEDTIME PRN PRN Reason: Insomnia Omeprazole (Omeprazole 20 Mg Capsule.Dr) 20 mg PO DAILY@629 [facility] Last Admin: 10/25/24 05:24 Dose: 20 mg Ondansetron HCl (Ondansetron Hcl 4 Mg/2 Ml Vial) 4 mg IVPUSH Q8H PRN PRN Reason: Nausea and Vomiting Oxycodone HCl (Oxycodone Hcl Immed Release 5 Mg Tablet) 5 mg PO Q6H PRN PRN Reason: Pain, Moderate(Pain Scale 4-6) Last Admin: 10/25/24 03:27 Dose: 5 mg Polyethylene Glycol (Polyethylene Glycol 3350 17 Gm Powd.Pack) 17 gm PO DAILY PRN PRN Reason: Constipation Sodium Chloride (0.9 % Sodium Chloride Flush 3 Ml Syringe) [facility] Last Admin: 10/25/24 06:51 Dose: Not Given Home Medications ?Medication ?Instructions ?Recorded ?Confirmed ?Last Taken ?Type levothyroxine 112 mcg tablet 112 mcg PO DAILY@0600 01/16/20 10/24/24 10/22/24 History hydrochlorothiazide 25 mg tablet 25 mg PO DAILY 11/18/21 10/24/24 10/22/24 History omeprazole 20 mg capsule,delayed 20 mg PO DAILY@06 10/24/24 10/24/24 10/22/24 History release Exam Height,Weight and Vital Signs: Height 5 ft 7 in Weight 77.8 kg Last Vital Signs Temp 98.7 F 10/25/24 07:44 Pulse 79 10/25/24 07:44 Resp 16 10/25/24 07:44 BP 127/77 10/25/24 07:44 Pulse Ox 95 10/25/24 07:44 O2 Del Method Room Air 10/25/24 07:44 Pertinent Lab Results Pertinent Lab Results: Laboratory Tests 10/24/24 10/24/24 10/24/24 06:27 06:28 11:45 WBC 8.4 RBC 5.58 Hgb 16.9 Hct 48.2 MCV 86.4 MCH 30.3 MCHC 35.1 RDW 13.3 Plt Count 155 L MPV 9.4 Immature Gran % (Auto) 0.2 Neut % (Auto) 83.0 H Lymph % (Auto) 11.0 L [place] % (Auto) 5.7 Eos % (Auto) 0.1 Baso % (Auto) 0.0 Lymph # (Auto) 0.9 L [place] # (Auto) 0.5 Eos # (Auto) 0.0 Baso # (Auto) 0.0 Abs Immat Gran (auto) 0.02 Absolute Neuts (auto) 7.0 Absolute Nucleated RBC 0.000 Nucleated RBC % (auto) 0.0 Sodium 143 Potassium 4.1 Chloride 106 Carbon Dioxide 28 Anion Gap 13 BUN 27 H Creatinine 1.05 Estim Creat Clear Calc 77.4 Estimated GFR > 60 Random Glucose 125 H Calcium 9.2 D Total Bilirubin 0.6 AST 37 ALT 66 H Alkaline Phosphatase 83 Total Protein 6.9 Albumin 4.1 Triglycerides 79 Lipase 447 H Urine Color Yellow Urine Appearance Clear Urine pH 7.0 Ur Specific [place] >= 1.030 H Urine Protein Negative Urine Glucose (UA) Negative Urine Ketones Negative Urine Blood Negative Urine Nitrite Negative Ur Leukocyte Esterase Negative Ethyl Alcohol < 10 10/25/24 05:53 WBC RBC Hgb Hct MCV MCH MCHC RDW Plt Count MPV Immature Gran % (Auto) Neut % (Auto) Lymph % (Auto) [place] % (Auto) Eos % (Auto) Baso % (Auto) Lymph # (Auto) [place] # (Auto) Eos # (Auto) Baso # (Auto) Abs Immat Gran (auto) Absolute Neuts (auto) Absolute Nucleated RBC Nucleated RBC % (auto) Sodium 138 Potassium 3.5 Chloride 103 Carbon Dioxide 27 Anion Gap 12 BUN 16 Creatinine 0.88 Estim Creat Clear Calc 83.4 Estimated GFR > 60 Random Glucose 109 Calcium 8.3 L D Total Bilirubin AST ALT Alkaline Phosphatase Total Protein Albumin Triglycerides Lipase 58 Urine Color Urine Appearance Urine pH Ur Specific [place] Urine Protein Urine Glucose (UA) Urine Ketones Urine Blood Urine Nitrite Ur Leukocyte Esterase Ethyl Alcohol Narrative Narrative: EKG NSR, rate 70 Airway Mallampati Class: II TM Dist: >3cm Neck ROM: Full Loose/Missing/Broken Teeth: Upper (M molar) and Lower (4 M molars) Heart: RRR Lungs: CTAB Assessment and Plan Final Anesthetic Review Family History of Problems with Anesthesia: No History of Problems with Anesthesia: No Documented by User: Marcelo Jose MD 10/26/24 06:33 [facility] Past Medical History Medical History Hx of renal calculi Elevated cholesterol HTN (hypertension) Rhinitis Hypothyroidism Hemorrhoids Bladder neck contracture Family History Family History Sister Lung cancer Kidney carcinoma Other Family history non-contributory Surgical History Surgical History History of prostate surgery Hx of colonoscopy History of surgery Social History Social History Household Members: Family Household Members Other:: sister, family member Housing: House Do you presently have visiting nurse or other home services: No Alcohol intake: unknown Patient Tobacco Use Status: Never used Tobacco service: No Meds Allergies Allergy/AdvReac Type Severity Reaction Status Date / Time No Known Allergies (No Known Allergy Verified 10/24/24 04:13 Allergies*) Home Medications ?Medication ?Instructions ?Recorded ?Confirmed ?Last Taken ?Type levothyroxine 112 mcg tablet 112 mcg PO DAILY@0600 01/16/20 10/24/24 10/22/24 History hydrochlorothiazide 25 mg tablet 25 mg PO DAILY 11/18/21 10/24/24 10/22/24 History omeprazole 20 mg capsule,delayed 20 mg PO DAILY@0630 10/24/24 10/24/24 10/22/24 History release Exam Exam Date and Time: 10/26/2024 Assessment and Plan Assessment Anesthesia Assessment: Anesthesia Plan Discussed Final Anesthetic Review NPO: Yes ASA Class: II Final Preanesthetic Review: No Changes in Pt Med Stat, Meds/Allgs Chart Reviewed, Consent Obtained/Reviewed and Anes Risks/Benef Reviewed Patient Risk: Low Procedure Risk: Low Anesthetic Plan Anesthetic Plan: GA Disposition: Standard PACU
--- NOTE | 2024-10-25 15:51 | MHC.CM.PN ---
PT LIVES WITH SISTER HAS NO SERVICES IS INDEPNDENT HAS A RIDE HOME DC PLAN HOME NO SERVICES
[2024-10-25 16:00] VITALS: BP 148/90; PULSE 86; RESP 16; TEMP 37.1; O2SAT 95
[2024-10-25 19:15] VITALS: BP 148/84; PULSE 85; RESP 18; TEMP 36.9; O2SAT 96
[2024-10-26] VITALS (9 sets, daily range): BP systolic 124–142; BP diastolic 70–87; PULSE 76–94; RESP 16–18; TEMP 36.3–37.4; O2SAT 94–100
[2024-10-26] MEDS: Lactated Ringers 1,000 ML 125 ML IVCONT ×3 (02:20→10:23)
--- NOTE | 2024-10-26 06:53 | P.PNGS_ITS ---
Subjective Subjective Date of Service: 10/26/24 <Usama Ross PA-C - Last Filed: 10/26/24 07:26> 10/26/24 <Jaime Tomas MD - Last Filed: 10/26/24 07:40> Interval history: patient seen in pre op. doing well. His pain is improved today, states it is very mild. denies nausea vomiting. States he is hungry because he has not eaten <Usama Ross PA-C - Last Filed: 10/26/24 07:26> Physical Exam 2 Vital Signs: Vital Signs: Last Vital Signs Temp 99.3 F 10/26/24 06:44 Pulse 94 10/26/24 06:44 Resp 16 10/26/24 06:44 BP 129/79 10/26/24 06:44 Pulse Ox 95 10/26/24 06:44 O2 Del Method Room Air 10/26/24 06:44 BMI result Body Mass Index 26.9 <Usama Ross PA-C - Last Filed: 10/26/24 07:26> Const: General: comfortable and no acute distress <Usama Ross PA-C - Last Filed: 10/26/24 07:26> Orientation/consciousness: patient oriented x3 <Usama Ross PA-C - Last Filed: 10/26/24 07:26> GI: Inspection: No distended <Usama Ross PA-C - Last Filed: 10/26/24 07:26> Palpation (GI): Soft to palpation, nontender and no guarding <Usama Ross PA-C - Last Filed: 10/26/24 07:26> Skin: General skin exam: no jaundice <Usama Ross PA-C - Last Filed: 10/26/24 07:26> Neuro: General: patient oriented x3 <JASON Ball Last Filed: 10/26/24 07:26> Objective Data Active Medications Acetaminophen (Acetaminophen 325 Mg Tablet) 650 mg PO Q6H PRN PRN Reason: Pain, Mild 1-3,fever,headache Calcium Carbonate (Calcium Carbonate 750 Mg Tab.Chew) 750 mg PO Q4H PRN PRN Reason: Heartburn Cefotetan Disodium (Cefotetan Disodium 2 Gm Vial) 2 gm IVPUSH PREOP ONE Stop: 10/26/24 07:31 Enoxaparin Sodium (Enoxaparin Sodium 40 Mg/0.4 Ml Syringe) 40 mg SUBCUT Q24H [facility] On Hold: 10/25/24 11:30 Last Admin: 10/24/24 11:59 Dose: 40 mg Documented By: BRANDON Fentanyl (Fentanyl Citrate/Pf 100 Mcg/2 Ml Vial) 50 mcg IVPUSH Q5M PRN PRN Reason: Pain, Moderate to Severe (Pain Scale 4-10) Stop: 10/26/24 12:33 Hydrochlorothiazide (Hydrochlorothiazide 25 Mg Tablet) 25 mg PO DAILY [facility]; Protocol Last Admin: 10/25/24 07:48 Dose: 25 mg Documented By: JANES Hydromorphone HCl (Hydromorphone Hcl 1 Mg/Ml Syringe) 0.5 mg IVPUSH Q4H PRN; Protocol PRN Reason: Pain, Severe (Pain Scale 7-10) Hydromorphone HCl (Hydromorphone Hcl 0.5 Mg/0.5 Ml Syringe) 0.5 mg IVPUSH Q5M PRN PRN Reason: Pain, Moderate to Severe (Pain Scale 4-10) Stop: 10/26/24 12:33 Lactated Ringer's (Lr) 1,000 mls @ 125 mls/hr IVCONT .Q8H [facility] Last Admin: 10/26/24 02:20 Dose: 125 mls/hr Documented By: ISAAC Lactated Ringer's (Lr) 500 mls @ 20 mls/hr IVCONT .Q24H [facility] Levothyroxine Sodium (Levothyroxine Sodium 112 Mcg Tablet) 112 mcg PO DAILY@0600 [facility] Last Admin: 10/26/24 05:36 Dose: Not Given Documented By: ISAAC Non-Admin Reason: NPO Magnesium Hydroxide (Milk Of Magnesia 30 Ml Oral.Susp) 30 ml PO DAILY PRN PRN Reason: Constipation Melatonin (Melatonin 3 Mg Tablet) 6 mg PO BEDTIME PRN PRN Reason: Insomnia Naloxone HCl (Naloxone Hcl 0.4 Mg/Ml Vial) 0.04 mg IVPUSH Q5M PRN PRN Reason: Excessive sedation or RR < 8 Omeprazole (Omeprazole 20 Mg Capsule.Dr) 20 mg PO DAILY@0630 [facility] Last Admin: 10/26/24 05:37 Dose: Not Given Documented By: ISAAC Non-Admin Reason: NPO Ondansetron HCl (Ondansetron Hcl 4 Mg/2 Ml Vial) 4 mg IVPUSH Q8H PRN PRN Reason: Nausea and Vomiting Ondansetron HCl (Ondansetron Hcl 4 Mg/2 Ml Vial) 4 mg IVPUSH ONCE PRN PRN Reason: Nausea and Vomiting Stop: 10/26/24 12:33 Oxycodone HCl (Oxycodone Hcl Immed Release 5 Mg Tablet) 5 mg PO Q6H PRN PRN Reason: Pain, Moderate(Pain Scale 4-6) Last Admin: 10/25/24 03:27 Dose: 5 mg Documented By: HUSSEIN Polyethylene Glycol (Polyethylene Glycol 3350 17 Gm Powd.Pack) 17 gm PO DAILY PRN PRN Reason: Constipation Sodium Chloride (0.9 % Sodium Chloride Flush 3 Ml Syringe) 3 ml IVFLUSH QSHIFT MELONIE Last Admin: 10/25/24 23:16 Dose: Not Given Documented By: ISAAC Non-Admin Reason: IV Running <Usama Ross PA-C - Last Filed: 10/26/24 07:26> Labs CBC & Chem 7: 10/24/24 06:27 10/25/24 05:53 <Usama Ross PA-C - Last Filed: 10/26/24 07:26> Procedures Date of Service Date of Service: 10/26/24 <Usama Ross PA-C - Last Filed: 10/26/24 07:26> 10/26/24 <Jaime Tomas MD - Last Filed: 10/26/24 07:40> Progress Note: A&P Assessment and plan (1) Cholelithiasis: Status: Acute <Usama Ross PA-C - Last Filed: 10/26/24 07:26> (2) Acute pancreatitis: Status: Acute <Usama Ross PA-C - Last Filed: 10/26/24 07:26> Assessment and Plan: 58 year old male admitted for management of acute pancreatitis. Patient has known cholelithiasis. Patient had MRCP 10/24, i reviewed the imaging showing cholelithiasis, it did not show a CBD stone or dilation, it also did not show acute cholecystitis. Patients pain remains minimal. Pancreatitis resolved at this point lipase stable on labs yesterday. Will proceed with lap nora possible open this morning. Patient agreeable to plan, understands risks. He has been NPO. Lap nora this morning will transfer to med surg for post surgical managment <Usama Ross PA-C - Last Filed: 10/26/24 07:26> 58 year old male admitted for management of acute pancreatitis. Patient has known cholelithiasis. Patient had MRCP 10/24, i reviewed the imaging showing cholelithiasis, it did not show a CBD stone or dilation, it also did not show acute cholecystitis. Patients pain remains minimal. Pancreatitis resolved at this point lipase stable on labs yesterday. Will proceed with lap nora possible open this morning. Patient agreeable to plan, understands risks. He has been NPO. Lap nora this morning will transfer to med surg for post surgical managment I again reviewed the procedure, risks and alternatives in detail with the patient with the assistance of an plasma table operator and he consents to a Laparoscopic or possible open cholecystectomy. <Jaime Tomas MD - Last Filed: 10/26/24 07:40> Time Spent With Patient Time: Total time managing care of this patient today ____ minutes. <Usama Ross PA-C - Last Filed: 10/26/24 07:26> Quality Stroke Does the patient have a stroke diagnosis?: No <Usama Ross PA-C - Last Filed: 10/26/24 07:26> VTE Prior VTE?: No <Usama Ross PA-C - Last Filed: 10/26/24 07:26> VTE Risk Level:: Medical - moderate - high <Usama Ross PA-C - Last Filed: 10/26/24 07:26> VTE Device Contraindication: Treatment Not Indicated <Usama Ross PA-C - Last Filed: 10/26/24 07:26> VTE Drug Contraindication: N/A - Med Ordered <Usama Ross PA-C - Last Filed: 10/26/24 07:26>
--- NOTE | 2024-10-26 08:48 | P.OP_ITS ---
Operative Note Operative Note Date of Service: 10/26/24 Narrative: Preoperative diagnosis: Gallstone pancreatitis Postoperative diagnosis: Same Procedure: Laparoscopic cholecystectomy Surgeon: Jaime Tomas MD Motor Rebuilder: Usama Ross PA-C, CANDI Cool Anesthesia: General endotracheal Indications for procedure: 58-year-old male patient presenting with complaints of epigastric abdominal pain found to have elevated lipase level with changes of the pancreas on CT consistent with gallstone pancreatitis. MRCP was negative for common bile duct stone. Patient presents today for laparoscopic cholecystectomy possible open Operative findings: Moderately inflamed gallbladder with adhesions to the wall, multiple gallstones and sludge Specimen: gallbladder Estimated blood loss: 5 mL Complications: None Procedure details: Patient was brought to the OR and placed in a supine position. After administering general anesthesia the patient's abdomen was prepped with ChloraPrep and draped in a sterile fashion. A surgical time-out was called the consent confirmed. Patient received preoperative antibiotics and Venodyne boots were in place. Local anesthesia consisting of 0.5% Sensorcaine without epinephrine was infiltrated in a periumbilical region. A 5 mm incision was made above the umbilicus in a transverse fashion. The Veress needle was then inserted while elevating abdominal cavity with towel clips. After positive drop test the abdomen was insufflated to a pressure of 15 mm of mercury. The Veress needle was then removed and a 5 mm trocar inserted. The camera was inserted in the abdomen explored. A 12 mm trocar was then placed in the epigastrium. Two 5 mm trocars placed in the right upper quadrant by the office assistant receptionist. The patient was placed in reverse Trendelenburg positioning and rotated to the left. The gallbladder was grasped with the fundus and retracted cephalad by the office assistant receptionist. The infundibulum was then grasped and retracted away from the liver bed, also by the office assistant receptionist. The Dolphin dissected was then used by the surgeon to dissect the peritoneum off the infundibulum to reveal the junction with the cystic duct. Cystic artery was noted slightly medial and posterior to the cystic duct. After obtaining a critical view the cystic duct was doubly clipped and divided. The cystic artery was then doubly clipped and divided. The gallbladder was then dissected off the liver bed using electrocautery with an L hook. Hemostasis was assured all times using the electrocautery. When the gallbladder is completely dissected off the liver bed was placed in an Endo-Catch bag and brought out through the epigastric incision. The gallbladder was sent to pathology for further examination. The abdomen was then re-examined. The liver bed was irrigated and suctioned dry. No bleeding or bile leak could be identified. CO2 was then evacuated and all trocars removed. Fascia was closed at the epigastric incision using a [id number] 0 Polysorb suture. Skin was closed in all incisions using a subcuticular 4 0 Polysorb suture by both the surgeon and office assistant receptionist. Sterile dressings consisting of Steri-Strips, 2 x 2 gauze, and Tegaderm were then applied. The patient tolerated the procedure well. Sponge instrument and needle counts reported as correct. The patient was transferred to PACU in stable condition.
--- NOTE | 2024-10-26 10:39 | HO.PM.IMPN ---
Subjective Subjective Date of Service: 10/26/24 Interval History: f/u on gallstone pancreatitis, had surgery this morning, has mild pain Physical Exam Vital Signs: Vital Signs: Last Vital Signs Temp 97.9 F 10/26/24 10:23 Pulse 81 10/26/24 10:23 Resp 16 10/26/24 10:23 BP 125/75 10/26/24 10:23 Pulse Ox 95 10/26/24 10:23 O2 Del Method Room Air 10/26/24 10:23 O2 Flow Rate 2 10/26/24 09:25 BMI result Body Mass Index 26.9 Const: Other: General: AO X 3, no acute distress Resp: CTA bilateral CVS: S1,S2,RRR GI: mild tenderness around incision Skin: No rash Neuro: motor grossly intact Psych: appropriate affect Objective Data Active Medications Acetaminophen (Acetaminophen 325 Mg Tablet) 650 mg PO Q6H PRN PRN Reason: Pain, Mild 1-3,fever,headache Calcium Carbonate (Calcium Carbonate 750 Mg Tab.Chew) 750 mg PO Q4H PRN PRN Reason: Heartburn Enoxaparin Sodium (Enoxaparin Sodium 40 Mg/0.4 Ml Syringe) 40 mg SUBCUT Q24H [facility] On Hold: 10/25/24 11:30 Last Admin: 10/24/24 11:59 Dose: 40 mg Documented By: BRANDON Hydrochlorothiazide (Hydrochlorothiazide 25 Mg Tablet) 25 mg PO DAILY [facility]; Protocol Last Admin: 10/26/24 10:23 Dose: 25 mg Documented By: PAIGE Hydromorphone HCl (Hydromorphone Hcl 1 Mg/Ml Syringe) 0.5 mg IVPUSH Q4H PRN; Protocol PRN Reason: Pain, Severe (Pain Scale 7-10) Levothyroxine Sodium (Levothyroxine Sodium 112 Mcg Tablet) 112 mcg PO DAILY@0600 [facility] Last Admin: 10/26/24 10:23 Dose: 112 mcg Documented By: PAIGE Magnesium Hydroxide (Milk Of Magnesia 30 Ml Oral.Susp) 30 ml PO DAILY PRN PRN Reason: Constipation Melatonin (Melatonin 3 Mg Tablet) 6 mg PO BEDTIME PRN PRN Reason: Insomnia Omeprazole (Omeprazole 20 Mg Capsule.Dr) 20 mg PO DAILY@0630 [facility] Last Admin: 10/26/24 10:23 Dose: 20 mg Documented By: PAIGE Ondansetron HCl (Ondansetron Hcl 4 Mg/2 Ml Vial) 4 mg IVPUSH Q8H PRN PRN Reason: Nausea and Vomiting Oxycodone HCl (Oxycodone Hcl Immed Release 5 Mg Tablet) 5 mg PO Q6H PRN PRN Reason: Pain, Moderate(Pain Scale 4-6) Last Admin: 10/25/24 03:27 Dose: 5 mg Documented By: HUSSEIN Polyethylene Glycol (Polyethylene Glycol 3350 17 Gm Powd.Pack) 17 gm PO DAILY PRN PRN Reason: Constipation Sodium Chloride (0.9 % Sodium Chloride Flush 3 Ml Syringe) 3 ml IVFLUSH QSHIFT MELONIE Last Admin: 10/26/24 07:11 Dose: Not Given Documented By: PAIGE Non-Admin Reason: Off Unit: Surgery Labs 10/24/24 06:27 10/25/24 05:53 Labs: Laboratory Results - last 24 hr 10/24/24 10/24/24 10/25/24 06:28 11:45 05:53 Anion Gap 12 Estim Creat Clear Calc 83.4 Estimated GFR > 60 Random Glucose 109 Calcium 8.3 L D Triglycerides 79 Lipase 58 Urine Color Yellow Urine Appearance Clear Urine pH 7.0 Ur Specific [place] >= 1.030 H Urine Protein Negative Urine Glucose (UA) Negative Urine Ketones Negative Urine Blood Negative Urine Nitrite Negative Ur Leukocyte Esterase Negative Ethyl Alcohol < 10 Assessment and Plan (1) Cholelithiasis: Status: Acute (2) Acute pancreatitis: Status: Acute Plan 58-year-old male with past medical history of hypertension, hyperlipidemia, GERD, hypothyroidism and overactive bladder, history of prostate issues, presented to the ED with abdominal pain worsening since last evening after eating. He was found to have acute pancreatitis. He will be admitted for further care. Medication reconciliation not completed at time of exam. Acute pancreatitis secondary to cholelithiasism, pancreatitis resolved lipase 447--58 MRCP confirmed pancreatitis and cholelithiasis, no cholecystitis CCY today tolerating regular diet Hypertension HCTZ Hypothyroidism Levothyroxine CODE STATUS: FULL CODE VTE Prophylaxis: Lovenox Possible dc later today Quality Stroke Does the patient have a stroke diagnosis?: No VTE Prior VTE?: No VTE Risk Level:: Medical - moderate - high VTE Device Contraindication: Treatment Not Indicated VTE Drug Contraindication: N/A - Med Ordered
--- NOTE | 2024-10-26 10:41 | PM.DS ---
DS: Providers Provider Date of Service: 10/26/24 Date of admission: 10/24/24 10:17 Date of discharge: 10/26/24 Primary care physician: Unknown Physician Consults: 10/24/24 11:09 Consult to General Surgery Routine Consulting Provider: [facility] General Surgeons Reason for consultation: Cholelithiasis, acute pancreatitis DS: Diagnosis Discharge Diagnosis (1) Cholelithiasis: Status: Acute (2) Acute pancreatitis: Status: Acute DS: Summary Hospital Course Hospital Course: Chief Complaint: Acute pancreatitis 58-year-old male with a past medical history of hypertension, hyperlipidemia, GERD, overactive bladder presents to the ED with abdominal pain that developed yesterday evening after eating an omelet. Pain was persistent across his upper abdomen, which radiated to his back. He reports nausea and vomiting several times yesterday. Patient reports that for about a year he has been having very difficult time with pain and bloating with most food intake. He is unaware of any weight loss, denies any constipation, denies any blood in his stools, reports an occasional sour taste in his mouth. Patient had a colonoscopy and EGD in 2020, with recommendations to repeat in 10 years. Pathology negative. Patient denies any dizziness, lightheadedness, vomiting, fever, chills, chest pain, difficulty breathing, shortness of breath, back pain, pain with urination, blood in his urine or stool or any other complaints at this time. Patient denies any smoking history, denies any marijuana or illicit drug use. Patient denies any alcohol intake. He reports that he has been taking Mylanta twice a day, and omeprazole on occasion. His EKG demonstrated normal sinus rhythm, no leukocytosis, no anemia. Patient's AST is 37, ALT 66, lipase is 447. Patient was previously seen by Dr. Pablo in 2020 who recommended a lap nora which was not done at that time, HPI collected with the assistance of Davy Buy buy tea machine gunner #[id number] Hospital course: Patient was admitted and managed for acute gallstaone pancratitis, MRCP confirmed pancreatitis and no choledocholithias. His lipase dropped from 447 to 58 the following day with resolution of pain and suggesting a passed stone. He underwent CCY on 10/26 and is doing well post operatively, tolerating regular diet and pain relatively well controlled. Time Attestation Discharge Coordination Time (in mins): 45 Quality: Safe Use of Opioids Does Pt have an Active Cancer Diagnosis on the Problem List?: No Quality: Stroke Does the patient have a stroke diagnosis?: No Physical Exam Vital Signs: Vital Signs: Last Vital Signs Temp 97.9 F 10/26/24 10:23 Pulse 81 10/26/24 10:23 Resp 16 10/26/24 10:23 BP 125/75 10/26/24 10:23 Pulse Ox 95 10/26/24 10:23 O2 Del Method Room Air 10/26/24 10:23 O2 Flow Rate 2 10/26/24 09:25 BMI result Body Mass Index 26.9 DS: Data Data Completed and Pending Pending studies at discharge: Pending at discharge 10/26/24 08:47 Surgical [PTH] Routine Discharge Plan Discharge Anticipated Discharge Date/Time: 10/26/24 10:47 Patient Disposition: Home, Self-Care Discharge Diagnosis: Gallstone pancreatitis, Referrals: Physician,Unknown J [Primary Care Provider, Medical] - 1 Week Discharge Medications: Continued omeprazole 20 mg capsule,delayed release(DR/EC) 20 mg PO DAILY@0630 levothyroxine 112 mcg tablet 112 mcg PO DAILY@0600 hydrochlorothiazide 25 mg tablet 25 mg PO DAILY Diet: Advance to usual diet Activity on Discharge: As tolerated Stand Alone Forms: Patient Portal Discharge page Print Language: Kinyarwanda Care Plan Goals: recovery from gallbladder surgery Health Concerns: gallstone pancreatitis Plan of Treatment: see above Assessment: see above
== END 2024-10-26 17:14 | disposition home or self-care (01) | DRG 263 ==
LOC: HO.ED 10:30 → HO.EDOVER 10:35 → HO.S3 14:41
PROVIDERS: Surgery; Admitting Provider Internal Medicine; Emergency Provider Emergency Medicine; Visit Provider Internal Medicine
PROC: 0FT44ZZ Resection of Gallbladder, Percutaneous Endoscopic Approach (ICD-10-PCS; CPT 47562; principal; 2024-10-26 07:30)
DX: K85.10 Biliary acute pancreatitis without necrosis or infection (principal); E03.9 Hypothyroidism, unspecified; K80.20 Calculus of gallbladder without cholecystitis without obstruction; I10 Essential (primary) hypertension; E78.5 Hyperlipidemia, unspecified; Z79.890 Hormone replacement therapy; Z79.899 Other long term (current) drug therapy
CPT/HCPCS: 36415; 74177; 74181; 80048; 80053; 80307; 81003; 83690; 84478; 85025; 88304; 93005; 99221; 99285; J0330; J1100; J1171; J1650; J1790; J1885; J2003; J2270; J2405; J2704; J3010; J7120; Q9967

== ENCOUNTER → 2024-10-24 08:08 | Outpatient (BNV) | payer OTHER, SELFPAY | PROVIDERS: Admitting Provider Internal Medicine; Emergency Provider Emergency Medicine; Visit Provider Internal Medicine | DX: R10.10 Upper abdominal pain, unspecified (principal) | CPT/HCPCS: 93010 ==

== ENCOUNTER → 2024-10-24 08:09 | Outpatient (BNV) | payer OTHER, SELFPAY | PROVIDERS: Emergency Provider Emergency Medicine; Visit Provider Radiology Diagnostic Radiology | DX: K85.90 Acute pancreatitis without necrosis or infection, unspecified (principal); R18.8 Other ascites; K80.20 Calculus of gallbladder without cholecystitis without obstruction; K76.0 Fatty (change of) liver, not elsewhere classified | CPT/HCPCS: 74177; 74181 ==

== ENCOUNTER → 2024-10-24 10:17 | Outpatient (BNV) | payer OTHER, SELFPAY | PROVIDERS: Admitting Provider Internal Medicine; Emergency Provider Emergency Medicine; Visit Provider Internal Medicine | DX: K80.20 Calculus of gallbladder without cholecystitis without obstruction (principal); K85.10 Biliary acute pancreatitis without necrosis or infection | CPT/HCPCS: 99223; 99232 ==

== ENCOUNTER → 2024-10-24 10:17 | Outpatient (BNV) | payer OTHER, SELFPAY | PROVIDERS: Admitting Provider Internal Medicine; Emergency Provider Emergency Medicine; Visit Provider Surgery | DX: K80.20 Calculus of gallbladder without cholecystitis without obstruction (principal); K85.10 Biliary acute pancreatitis without necrosis or infection | CPT/HCPCS: 99222; 99232 ==

== ENCOUNTER 2024-11-03 10:53 | Outpatient (AMB) | payer OTHER, SELFPAY ==
--- NOTE | 2024-11-03 10:56 | MHC.OFFVIS ---
Vital Signs 11/03/24 11:01 Weight 171 lb BP 140/91 H Blood Pressure Location Rt brachial Position Sitting Pulse 91 Intake Visit Reasons: Laparoscopic cholecystectomy Intake Note: Patient here s/p Laparoscopic cholecystectomy. Patient c/o: steri strips fell off. Denies pain. No longer taking rx pain meds. Reports incision healing well. Surgery (): 10-26-2024 Service And Repair Supervisor Required: No Accompanied by: Self / Same As Patient Allergies No Known Allergies (No Known Allergies*) Allergy (Verified 11/03/24 11:01) HPI HPI Laparoscopic cholecystectomy: Details: Mr. Seymour presents today for routine wound check. He was admitted to the hospital on 10/24/24 for gallstone pancreatitis. He underwent laparoscopic cholecystectomy on 10/26/[address] Tomas. He tolerated the procedure well and was discharged that same day. He reports taking the oxycodone for a few days after the surgery and then took tylenol occasionally. He currently denies any abdominal pain. He is eating ok and is avoiding fatty foods. He is moving his bowels without difficulty. He has no concerns. [facility] Medical History (Updated 11/03/24 @ 00:03 by Gilles Vargas) Hx of renal calculi Elevated cholesterol HTN (hypertension) Rhinitis Hypothyroidism Hemorrhoids Bladder neck contracture Surgical History (Updated 11/03/24 @ 11:33 by Maame Decker PA-C) Hx laparoscopic cholecystectomy (10/26/24) History of prostate surgery Hx of colonoscopy History of surgery Family History Sister Lung cancer Kidney carcinoma Other Family history non-contributory Social History Household Members: Family Household Members Other:: sister, family member Housing: House Are you a primary md do resident urgent care to a significant other at home: No Do you presently have visiting nurse or other home services: No Alcohol intake: unknown Patient Tobacco Use Status: Never used Tobacco service: No Review of Systems Const All systems reviewed & are unremarkable except as noted in HPI and below Physical Exam Vital Signs: Last Vital Signs Pulse 91 11/03/24 11:01 BP 140/91 H 11/03/24 11:01 Const General: comfortable, no acute distress and alert Orientation/consciousness: patient oriented x3 Resp Effort & Inspection: normal respiratory effort GI Other: incisions well healed, no edema or erythema Inspection: No distended Palpation (GI): Soft to palpation, nontender and no guarding Percussion: Yes normal to percussion Skin General skin exam: no rashes or lesions noted and no jaundice Neuro General: patient oriented x3 and moves all extremities Results Reviewed Results Reviewed: Gallbladder, cholecystectomy: Chronic cholecystitis, cholesterolosis and cholelithiasis Assessment & Plan Assessment & Plan (1) Hx laparoscopic cholecystectomy: Onset Date: 10/26/24 Comment: Dr. Genoveva Sandoval Code(s): Z90.49 - Acquired absence of other specified parts of digestive tract Category: Surgical Plan S/p laparoscopic cholecystectomy on 10/26/24 for gallstone pancreatitis. He tolerated the procedure well. His incisions are well healing without evidence of infection. He is doing well post operatively and can follow up as needed with any concerns. He was instructed to continue no heavy lifting or strenuous exercises for the next 3 weeks and then can begin to resume all activities as tolerated. Coding Level of Care Code Global (06233) Diagnoses Hx laparoscopic cholecystectomy Z90.49
[2024-11-03 11:01] VITALS: BP 140/91; PULSE 91
--- OUTSIDE RECORDS SUMMARY | 2024-11-03 11:02 | XMS_ITS | Patient Health Record ---
Author Organization [facility] Address [address] [place] [id number] Care Team Providers Care Application Processor Name Role Phone Evelyn Mitchell M.D. Primary Care Provider Unava Telly Su Unavailable [phone] Allergies No Known Allergies Reason For Referral No Information Medications Medication SIG (Take, Route, Frequency, Duration) Notes [...] MOUTH ONCE DAILY Oral for 90 Active Immunizations Vaccine Route Administration Date Status Comme nts Influenza Unknown 03/11/2021 Refused Social History Tobacco Use: Social History Observation Description Date Details (start date - stop date) Never Smoker NA - NA Tobacco Use/Smoking Question Answer Notes Patient is a nonsmoker Alcohol Screen Question Answer Notes Did you have a drink containing alcohol in the p ast year? No Points 0 Interpretation Negative Section Notes: Nonsmoker, no sig alcohol Originally from [facility]. Problems Problem Type SNOMED Code ICD Code Onset Dates Problem Status W/U Status Risk Notes Problem 020679309 Encounter for screening for malignant neoplasm of colon (Z12.11) Active confirmed Problem Gastroesophageal reflux disease (902318046) Gastroesophageal reflux disease (K21.9) Active confirmed Problem 984381101 Gallstones (K80.20) Active confirmed Problem Diverticulosis of colon (219862341) Diverticulosis of colon (K57.30) Active confirmed Problem 400454006 Gastroesophageal reflux disease, unspecified whether esophagitis present (K21.9) Active confirmed Plan Of Treatment Pending Test Test Name Order Date US ABD 03/11/2021 Pathology 04/09/2021 US abdomen complete 04/08/2021 Future Test Test Name Order Date UPPER GI ENDOSCOPY 03/11/2021 COLONOSCOPY 03/11/2021 Insurance Providers Payer Name Payer Address Payer Phone Subscriber Number Group Number Insured Name Patient Relationship to Insured Coverage Start Date Coverage End Date [facility] [address] [address] [place], [place] [id number] NIK ALVAREZ Self - patient is the insured Medical (General) History Medical History History ICD Code Vitamin D deficiency GERD Hypertension Hypothyroidism Bilatral small kidney stones Gallstones Negative colonoscopy 2007 Hyperlipidemia BPH Denies SC,DM,CVA,Lung disease,renal dise ase GERD Surgical History Surgery Date(Month/Year) Prostate/Bladder -Dr. Romo, III Hemorrhoids-Dr. Pablo
--- OUTSIDE RECORDS SUMMARY | 2024-11-03 11:02 | XMS_ITS | Clinical Summary ---
Author Organization [facility] Address [address] [place] [address] Care Team Providers Care Cpas Name Role Phone Unavailable Primary Care Provider [...] Vaccine (1 - 2023-2 5 season) 2023 Depression Screening 04/12/2024 Influenza Vaccine (#1) 2024 RSV Immunization Adult Patie nts (1 [...]
--- OUTSIDE RECORDS SUMMARY | 2024-11-03 11:02 | XMS_ITS | Encounter Summary ---
Author Organization [employer] [facility] Address [address] [place] [address] Care Team Providers Care Cage Unloader Name Role Phone Evelyn Mitchell MD Primary Care Provider [phone] Encounter Details Date Type Department Care Team (Latest Contact Info) Description 11/09/2018 Abstract [facility] CONVERSIONS Dental, Provider, DDS Social History [...] Care Team (Late st Contact Info) Description 12/06/2024 9:00 AM EDT Office Visit [facility] OPTOMETRY [address] [place] [address] EbLetty milligan, OD [address] [place] [address] 01/03/2025 3:00 PM EDT Office Visit [facility] MEDICINE [address] [place] [address] Evelyn Mitchell MD [address] [place] [address] documented as of this encounter Visit Diagnoses Not on filedocumented in this encounter Care Teams Cage Unloader Relationship Specialty Start Date End Date Evelyn Mitchell MD [address] [place] [address] PCP - General Family Medicine 03/25/20 documented as of this encounter
== END 2024-11-03 11:22 | disposition home or self-care (01) ==
LOC: HO.HGS 10:54
PROVIDERS: Visit Provider Physician Assistant Surgical
DX: Z90.49 Acquired absence of other specified parts of digestive tract (principal)
CPT/HCPCS: 99024

== ENCOUNTER → 2024-11-03 10:53 | Outpatient (BNVA) | payer OTHER, SELFPAY | PROVIDERS: Visit Provider Physician Assistant Surgical | DX: Z48.815 Encounter for surgical aftercare following surgery on the digestive system (principal); Z90.49 Acquired absence of other specified parts of digestive tract; Z98.890 Other specified postprocedural states | CPT/HCPCS: 99212 ==

== ENCOUNTER 2024-12-06 08:46 | Outpatient (AMB) | payer OTHER, SELFPAY ==
--- NOTE | 2024-12-06 08:53 | MHC.OFFVIS ---
Intake Visit Reasons: 6m/PVR Intake Note: Patient is present for 6M F/U Urology Medication:mybetriq Blood Thinner:NONE today's pvr: 0mls Private Branch Exchange Service Advisor Required: Yes Accompanied by: Self / Same As Patient Allergies No Known Allergies (No Known Allergies*) Allergy (Verified 12/06/24 09:13) HPI Comments Details: Octavio is a very pleasant male. He is seen for the following urologic conditions - nephrolithiasis - lower urinary tract symptoms Cameroonian translation provided in office by qualified medical management trainer Refilled medication with bethanechol and Myrbetriq See in office in six-month Has been on combination bethanechol, Toviaz, Myrbetriq Has frequency and nocturia x3 Prior discussion InterStim versus Botox Prior Cystoscopy with open bladder neck Has bladder instability with impaired contractility - Previously failed oxybutynin, failed tolterodine, failed tamsulosin Lower urinary tract symptoms Current medication - Toviaz in addition to bethanechol Prior medications include , tamsulosin, tolterodine and oxybutynin Prior include oxybuytinin Intervention TURP PSA - 12/01 0.5 Cystoscopy - 04/02 open bladder neck, mild trabeculation Nephrolithiasis They are here for - further evaluation for nephrolithiasis Urolithiasis was diagnosed - ongoing The patient previously had kidney stones whose composition w - unknown Laboratory investigations include - April 2020 calcium 9.2 24 Hour urine evaluation - none on file. Prior treatment(s) include - observation Prior imaging includes - a CT - stone protocol April 2020 2 small stones - 03/02 renal ultrasound multiple punctate calcifications bilateral - 12/01 renal ultrasound several small stones bilateral - 12/02 renal ultrasound small stones right side Current therapeutic plan will be - to continue with imaging surveillance [facility] Medical History (Updated 11/03/24 @ 00:03 by Gilles Vargas) Hx of renal calculi Elevated cholesterol HTN (hypertension) Rhinitis Hypothyroidism Hemorrhoids Bladder neck contracture Surgical History (Updated 11/03/24 @ 11:33 by Maame Decker PA-C) Hx laparoscopic cholecystectomy (10/26/24) History of prostate surgery Hx of colonoscopy History of surgery Family History Sister Lung cancer Kidney carcinoma Other Family history non-contributory Social History Household Members: Family Household Members Other:: sister, family member Housing: House Are you a primary primary health care nurse to a significant other at home: No Do you presently have visiting nurse or other home services: No Alcohol intake: unknown Patient Tobacco Use Status: Never used Tobacco service: No Review of Systems Const Denies chills and Denies fever(s) Card Reports no additional complaints and Denies syncope Resp Denies cough GI Denies abdominal pain and Denies heartburn Reports as per HPI and Denies change in libido Neuro Denies syncope Psych Denies change in libido Endo Denies change in libido Physical Exam Const General: cooperative, healthy appearing, comfortable and no acute distress Orientation/consciousness: patient oriented x3 HEENT Face and sinus: Yes normal facial exam Mouth: moist mucous membranes Neck Neck: Yes normal visual inspection, Yes full ROM and Yes trachea midline Chest Chest palpation & inspection: normal inspection of the chest Resp Effort & Inspection: normal respiratory effort, able to speak in complete sentences and no respiratory distress GI Inspection: Yes normal to inspection Back/Spine/Pelvis Cervical Spine: normal cervical lordosis Thoracic/Lumbar Spine: thoracic and lumbar spine normal to inspection Skin General skin exam: no rashes or lesions noted Neuro General: patient oriented x3, gait normal, tone normal and moves all extremities Extrem General: Yes normal to inspection and Yes capillary refill normal Office Procedures Post Void Residual Post Residual Void Post Void Residual (PVR): 0 [id number] Void Residual by ultrasound Results AMB Urinalysis, Automated UA Leukoctes 0 Britni/uL Last Edit by MYLES Larios on 12/06/24 09:15 UA Nitrite Negative Last Edit by MYLES Larios on 12/06/24 09:15 UA Urobilinogen 0.2 mg/dL Last Edit by MYLES Larios on 12/06/24 09:15 UA Protein 15 mg/dL Last Edit by MYLES Larios on 12/06/24 09:15 UA pH 6.0 Last Edit by MYLES Larios on 12/06/24 09:15 UA Blood 10 Colten/uL Last Edit by MYLES Larios on 12/06/24 09:15 UA Specific [place] 1.020 Last Edit by MYLES Larios on 12/06/24 09:15 UA Ketone Negative Last Edit by MYLES Larios on 12/06/24 09:15 UA Bilirubin 0 mg/dL Last Edit by MYLES Larios on 12/06/24 09:15 UA Glucose 0 mg/dL Last Edit by MYLES Larios on 12/06/24 09:15 Results Reviewed Results Reviewed: Laboratory Last Values Urine pH (Auto) 6.0 12/06/24 09:14 Specific [place] (Auto) 1.020 12/06/24 09:14 Urine Protein (Auto) 15 mg/dL 12/06/24 09:14 Glucose (UA)(Auto) 0 mg/dL 12/06/24 09:14 Urine Ketones (Auto) Negative 12/06/24 09:14 Urine Blood (Auto) 10 Colten/uL 12/06/24 09:14 Urine Nitrite (Auto) Negative 12/06/24 09:14 Urine Bilirubin (Auto) 0 mg/dL 12/06/24 09:14 Urine Urobilinogen (Auto) 0.2 mg/dL 12/06/24 09:14 Leukocyte Esterase (Auto) 0 Britni/uL 12/06/24 09:14 Assessment & Plan Assessment & Plan (1) Bladder outlet obstruction: Code(s): N32.0 - Bladder-neck obstruction Category: Medical (2) Weak urinary stream: Code(s): R39.12 - Poor urinary stream Category: Medical Plan Continue current medication Orders: Orders AMB Urinalysis Automated Today Z13.9 - Encounter for screening, unspecified AMB Post Void Residual by ultrasound Today N32.81 - Overactive bladder Patient Instructions: This note is constructed using voice recognition software. While every effort has been made to ensure accuracy spring bender errors may have been included. Imaging studies, laboratory and physical exam results were discussed and reviewed in detail. No major barriers to patient understanding were identified. An opportunity to ask questions regarding the treatment plan was provided. All questions were answered. The patient expressed understanding and agreement with the above treatment plan. The patient is aware they should contact our office by phone for worsening of their current condition or the appearance of new urologic symptoms. Compliance is encouraged with any medications and followup testing that is ordered. It is a privilege to participate in the urologic care of your patient. If you have any questions or concerns regarding treatment for the above conditions, or other urologic issues, please do not hesitate to contact me. The office telephone contact is [phone]. Sincerely, Dr Sergio Koenig MD, PENG [facility] - Urology Compassionate Specialist Care for the Genitourinary System Coding Level of Care Code Est Pt Level 3 (49499) Complex EM visit Add On G2211 Diagnoses Bladder outlet obstruction N32.0 Weak urinary stream R39.12 CPT Codes Post Residual Void - PVR CPT Code: 03005-[id number] Void Residual by ultrasound ([id number])
--- OUTSIDE RECORDS SUMMARY | 2024-12-06 09:12 | XMS_ITS | Encounter Summary ---
Author Organization [employer] [facility] Address [address] [place] [address] Care Team Providers Care Inspector Golf Ball Name Role Phone Evelyn Mitchell MD Primary Care Provider [phone] Encounter Details Date Type Department Care Team (Latest Contact Info) Description 12/31/2020 Abstract [facility] CONVERSIONS Dental, Provider, DDS Social History Tobacco [...] Team (Late st Contact Info) Description 12/06/2024 11:30 AM EDT Office Visit [facility] OPTOMETRY [address] [place] [address] Eb, Letty, OD [address] [place] [address] 01/03/2025 3:00 PM EDT Office Visit [facility] MEDICINE [address] [place] [address] Evelyn Mitchell MD [address] [place] [address] documented as of this encounter Visit Diagnoses Not on filedocumented in this encounter Care Teams Inspector Golf Ball Relationship Specialty Start Date End Date Evelyn Mitchell MD [address] [place] [address] PCP - General Family Medicine 03/25/20 documented as of this encounter
--- OUTSIDE RECORDS SUMMARY | 2024-12-06 09:12 | XMS_ITS | Encounter Summary ---
Author Organization [employer] [facility] Address [address] [place] [address] Care Team Providers Care Master Chef Name Role Phone Evelyn Mitchell MD Primary Care Provider [phone] Encounter Details Date Type Department Care Team (Latest Contact Info) Description 11/09/2018 Abstract [facility] CONVERSIONS Dental, Provider, DDS Social [...] Description 12/06/2024 11:30 AM EDT Office Visit [facility] OPTOMETRY [address] [place] [address] EbLetty milligan, OD [address] [place] [address] 01/03/2025 3:00 PM EDT Office Visit [facility] MEDICINE [address] [place] [address] Evelyn Mitchell MD [address] [place] [address] documented as of this encounter Visit Diagnoses Not on filedocumented in this encounter Care Teams Master Chef Relationship Specialty Start Date End Date Evelyn Mitchell MD [address] [place] [address] PCP - General Family Medicine 03/25/20 documented as of this encounter
--- OUTSIDE RECORDS SUMMARY | 2024-12-06 09:12 | XMS_ITS | Encounter Summary ---
Author Organization [employer] Address [address] [place] [address] Care Team Providers Care Vacuum Caster Name Role Phone Evelyn Mitchell MD Primary Care Provider [phone] Encounter Details Date Type Department Care Team (Late st Contact Info) Description 08/18/2023 Orders Only [facility] MEDICINE [address] [place] [address] ProviderDerrell MD Social History Tobacco Use Types [...] Description 12/06/2024 11:30 AM EDT Office Visit [facility] OPTOMETRY [address] [place], [place] [phone] Letty Parson, OD [address] [place] [address] 01/03/2025 3:00 PM EDT Office Visit [facility] MEDICINE [address] [place] [address] Evelyn Mitchell MD [address] [place] [address] documented as of this encounter Procedures Procedure Name Priority Date/Time Associated Diagnosis Comments HM COLONOSCOPY Routine 04/09/2021 8:21 AM EST documented in this encounter Results * Hm Colonoscopy (04/09/2021 8:21 AM EST) Historical Provider HEALTH MAINTENANCE Final Result documented in this encounter Visit Diagnoses Not on filedocumented in this encounter Care Teams Vacuum Caster Relationship Specialty Start Date End Date Evelyn Mitchell MD [address] [place], [place] [phone] PCP - General Family Medicine 03/25/20 documented as of this encounter
--- OUTSIDE RECORDS SUMMARY | 2024-12-06 09:12 | XMS_ITS | Encounter Summary ---
Author Organization [email or web address] Address [address] [facility] [address] 7[address] [place] [address] Care Team Providers Care Kayak Maker Name Role Phone Evelyn Mitchell MD Primary Care Provider [phone] Encounter Details Date Type Department Care Team (Late st Contact Info) Description 03/31/2023 Orders Only [facility] MEDICINE [address] [place], [place] [phone] Evelyn Mitchell MD [address] [place], [place] [phone] Positive Helicobacter pylori test (Primary Dx) Social [...] Description 12/06/2024 11:30 AM EDT Office Visit [facility] OPTOMETRY [address] [place] [address] Letty Parson, OD [address] [place] [address] 01/03/2025 3:00 PM EDT Office Visit [facility] MEDICINE [address] [place] [address] Evelyn Mitchell MD [address] [place] [address] documented as of this encounter Visit Diagnoses Diagnosis Positive Helicobacter pylori test- Primary documented in this encounter Care Teams Kayak Maker Relationship Specialty Start Date End Date Evelyn Mitchell MD [address] [place] [address] PCP - General Family Medicine 03/25/20 documented as of this encounter
--- OUTSIDE RECORDS SUMMARY | 2024-12-06 09:12 | XMS_ITS | Clinical Summary ---
Author Organization [facility] Address [address] [place] [address] Care Team Providers Care Health Plan Manager Name Role Phone Unavailable Primary Care Provider [...]
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
--- OUTSIDE RECORDS SUMMARY | 2024-12-06 09:13 | XMS_ITS | Patient Health Record ---
Author Organization [facility] Address [address] [place] [phone] Care Team Providers Care [employer]person [employer] Name Role Phone Evelyn Mitchell M.D. Primary Care Provider Unava Telly Su Unavailable [phone] Allergies No Known Allergies Reason For Referral [...] Notes: Nonsmoker, no sig alcohol Originally from [place]. Problems Problem Type SNOMED Code ICD Code Onset Dates Problem Status W/U Status Risk Notes Problem 977881287 Encounter for screening for malignant neoplasm of colon (Z12.11) Active confirmed Problem Gastroesophageal reflux disease (K21.9) Active confirmed Problem 990080731 Gallstones (K80.20) Active confirmed Problem Diverticulosis of colon (661576956) Diverticulosis of colon (K57.30) Active confirmed Problem [id number] Gastroesophageal reflux disease, unspecified whether esophagitis present [...] Insured Coverage Start Date Coverage End Date [facility] [employer] [address] [address] [place], [place] [id number] NIK LAVAREZ Self - patient is the insured Medical (General) History Medical History History ICD Code Vitamin D deficiency GERD Hypertension Hypothyroidism Bilatral small kidney stones Gallstones Negative colonoscopy 2007 Hyperlipidemia BPH Denies AL,DM,CVA,Lung disease,renal dise ase GERD Surgical History Surgery Date(Month/Year) Prostate/Bladder -Dr. Romo, III Hemorrhoids-Dr. Pablo
--- OUTSIDE RECORDS SUMMARY | 2024-12-06 09:13 | XMS_ITS | Encounter Summary ---
Author Organization [employer] [facility] Address [address] [facility] [address] [place] [address] Care Team Providers Care Diabetes Clinical Manager Name Role Phone Evelyn Mitchell MD Primary Care Provider [phone] Encounter Details Date Type Department Care Team (Late Contact Info) Description 12/09/2022 Orders Only [facility] [address] [place] [address] [phone] Evelyn Mitchell MD [address] [place], [place] [phone] Other hyperlipidemia (Primary Dx) Social History Tobacco [...] Department Care Team (Late Contact Info) Description 12/06/2024 11:30 AM EDT Office Visit [facility] OPTOMETRY [address] [place] [address] Letty Parson, OD [address] [place] [address] 01/03/2025 3:00 PM EDT Office Visit [facility] [address] [place] [address] Evelyn Mitchell MD [address] [place], [place] [phone] documented as of this encounter Visit Diagnoses Diagnosis Other hyperlipidemia- Primary documented in this encounter Care Teams Diabetes Clinical Manager Relationship Specialty Start Date End Date Evelyn Mitchell MD [address] [place] [address] PCP - General Family Medicine 03/25/20 documented as of this encounter
== END 2024-12-06 09:33 | disposition home or self-care (01) ==
LOC: HO.HUSH 08:47
PROVIDERS: PCP General Practice; Visit Provider Urology
DX: N32.0 Bladder-neck obstruction (principal); R39.12 Poor urinary stream; Z13.9 Encounter for screening, unspecified
CPT/HCPCS: 99213

== ENCOUNTER → 2024-12-06 08:46 | Outpatient (BNVA) | payer OTHER, SELFPAY | PROVIDERS: PCP General Practice; Visit Provider Urology | DX: N32.81 Overactive bladder (principal); N32.0 Bladder-neck obstruction; R39.12 Poor urinary stream | CPT/HCPCS: 51798; 81003; 99212 ==

== ENCOUNTER 2025-01-04 09:55 | Outpatient (REF) | payer OTHER, SELFPAY ==
--- OUTSIDE RECORDS SUMMARY | 2025-01-03 15:00 | XMS_ITS | Encounter Summary ---
Author Organization [employer] [facility] Address [address]t [place] [address] Care Team Providers Care Magnetic Resonance Imaging Coordinator Name Role Phone Evelyn Mitchell MD Primary Care Provider Reason for Referral * Imaging (Routine) - Authorized Specialty Diagnoses / Procedures Referred By Rosa nieto Referred To Contact Radiology Diagnoses Bilateral kidney stones Procedures US Renal Complete Evelyn Mitchell MD [address] [place] [address] Phone: tel: fax: [address] Phone: tel: fax: Referral ID Status Reason Start Date Expiration Date V isits Requested Visits Authorized [id number] Authorized 01/03/2025 01/03/2026 1 1 * Consultation (Routine) - Authorized Specialty Diagnoses / Procedures Referred By Rosa nieto Referred To Contact Gastroenterology Diagnoses Encounter for screening for malignant neoplasm of colon Evelyn Mitchell MD [address] [place] [address] Phone: tel: fax: [facility] [address] [place], [place] Phone: tel: fax: Referral ID Status Reason Start Date Expiration Date Visits Requested Visits Authorized [id number] Authorized Specialty Services Required 01/03/2025 01/03/2026 1 1 Reason for Visit * Reason Comments Follow-up Encounter Details Date Type Department Care Team (Latest Contact Info) Description 01/03/2025 3:00 PM EDT Office Visit [facility] MEDICINE [address] [place] [address] Evelyn Mitchell MD [address] [place], [place] [phone] Acquired hypothyroidism (Primary Dx); Dietary counseling; Exercise counseling; Overweight; Routine screening for STI (sexually transmitted infection); Peptic ulcer; Hemorrhoids, unspecified hemorrhoid type; Encounter for screening for malignant neoplasm of colon; Bilateral kidney stones; Wheezing on right side of chest on exhalation; Elevated ALT measurement; Encounter for immunization Social History Tobacco Use Types Packs/Day Years Used Date Smoking Tobacco: Never Smokeless Tobacco: Never Alcohol Use Standard Drinks/Week Comments Never 0 (1 standard drink = 0.6 oz pur e alcohol) Alcohol Answer Date Recorded How often do you have a drink containing alcohol ? 0 01/03/2025 How many drinks containing a lcohol do you have on a typical day when you are drinking? 0 01/03/2025 How often do you have six or more drinks on one occasion? 0 01/03/2025 Depression Answer Date Recorded Patient Health Questionnaire-9 [...] AM EDT documented as of this encounter Last Filed Vital Signs Vital Sign Reading Time Taken Comments Blood Pressure 134/78 01/03/2025 2:53 PM EDT Pulse 72 01/03/2025 2:53 PM EDT Temperature 36.1 C (96.9 F) 01/03/2025 2:53 PM EDT Respiratory Rate 21 01/03/2025 2:53 PM EDT Oxygen Saturation - - Inhaled Oxygen Concentration - - Weight 79.8 kg (176 lb) 01/03/2025 2:53 PM EDT Height 167.6 cm (5' 6 ) 01/03/2025 2:53 PM EDT Body Mass Index 28.41 01/03/2025 2:53 PM EDT documented in this encounter Plan of Treatment Upcoming Encounters Date Type Department Care Team (Late st Contact Info) Description 01/17/2025 9:00 AM EDT Office Visit [facility] OPTOMETRY [address] [place] [address] Eb, Letty, OD [address] [place] [address] Scheduled Orders Name Type Priority Associated Diagnoses Orde r Schedule HIV-1/2 Antigen and Antibodies, Fourth Generation, with Reflexes Lab Routine Routine screening for STI (sexually transmitted infection) Expected: 01/03/2025 (Approximate), Expires: 01/03/2026 Hepatitis C Antibody with Reflex to HCV, RNA, Quantitative, Real-Time PCR Lab Routine Routine screening for STI (sexually transmitted infection) Expected: 01/03/2025, Expires: 01/03/2026 TSH W/Reflex to FT4 Lab Routine Acquired hypothyroidism Expected: 01/03/2025 (Approximate), Expires: 01/03/2026 US Renal Complete Imaging Routine Bilateral kidney stones Expected: 01/03/2025, Expires: 01/03/2026 Hepatitis A IgM Lab Routine Elevated ALT measurement Expected: 01/03/2025 (Approximate), Expires: 01/03/2026 Hepatitis B Surface Antibody, Qualitative Lab Routine Elevated ALT measurement Expected: 01/03/2025 (Approximate), Expires: 01/03/2026 Scheduled Referrals Name Type Priority Associated Diagnoses Order Schedule Referral to Gastroenterology Outpatient Referral Routine Encounter for screening for malignant neoplasm of colon Expected: 01/03/2025 (Approximate), Expires: 01/03/2026 documented as of this encounter Procedures Procedure Name Priority Date/Time Associated Diagnosis Comments XR CHEST 2 VIEWS Routine 01/04/2025 10:1 5 AM EDT Wheezing on right side of chest on exhalation POCT GLYCATED HEMOGLOBIN, TOTAL Routine 01/03/2025 2:56 PM EDT Acquired hypothyroidism POCT GLUCOSE Routine 01/03/2025 2:54 PM EDT Acquired hypothyroidism documented in this encounter Results * XR Chest 2 Views (01/04/2025 10:15 AM EDT) Anatomical Region Laterality Modality Chest Radiographic Earline ging 01/04/2025 10:1 5 AM EDT Narrative 01/04/2025 10:27 [place] [address] XRay Report Signed Patient: Octavio Seymour MR#: [id number] 4 : 1965 Acct:[id number] Age/Sex: 59 / M ADM Date: 01/04/25 Loc: HO.HHCX Attending Dr: Evelyn Mitchell MD Ordering Physician: Evelyn Mitchell Date of Service: 01/04/25 Procedure(s): XR chest 2V Accession Number(s): [id number] cc: Evelyn Mitchell Reason for Exam: wheezing and RUL EXAMINATION: XR CHEST 2 VIEWS HISTORY: wheezing and RUL COMPARISON: There are no prior studies available for comparison. FINDINGS: PA and lateral views of the chest are submitted. The lungs are expanded and clear. There is no pleural effusion, pneumothorax, or pulmonary vascular congestion. The heart is normal in size. The bones are intact. XR/XR chest 2V IMPRESSION: Clear lungs. Electronically signed by: Telly Singleton MD 01/04/2025 10:23 AM EDT RP Dictated By: Telly Singleton MD Signed By: <Electronically signed by Telly Singleton MD in OV> 01/04/25 1023 DD/ 1015 TD/TT: 01/04/25 1019 Preload Supervisor: Procedure Note Donotuseinterpreter, Image - 01/04/[address] [address] XRay Report Signed Patient: Octavio Seymour RMR#: [id number] 4 : 1965Acct:[id number] Age/Sex: 59 / MADM Date: 01/04/25 Loc: HO.HHCX Attending Dr: Evelyn Mitchell MD Ordering Physician: Evelyn Mitchell Date of Service: 01/04/25 Procedure(s): XR chest 2V Accession Number(s): [id number] cc: Evelyn Mitchell Reason for Exam: wheezing and RUL EXAMINATION: XR CHEST 2 VIEWS HISTORY: wheezing and RUL COMPARISON: There are no prior studies available for comparison. FINDINGS: PA and lateral views of the chest are submitted. The lungs are expanded and clear. There is no pleural effusion, pneumothorax, or pulmonary vascular congestion. The heart is normal in size. The bones are intact. XR/XR chest 2V IMPRESSION: Clear lungs. Electronically signed by: Telly Singleton MD 01/04/2025 10:23 AM EDT RP Dictated By: Telly Singleton MD Signed By: <Electronically signed by Telly Singleton MD in OV> 01/04/25 1023 DD/ 1015 TD/TT: 01/04/25 1019 Preload Supervisor: Evelyn Mitchell MD IMG XR PROCEDURES Final Result * POCT Hgb A1c (01/03/2025 2:56 PM EDT) Hemoglobin A1C 5.4 4.0 - 5.7 % QC Media Lot # [id number] Lot# Expiration Date Blood 01/03/2025 2:56 PM EDT Evelyn Mitchell MD POINT OF CARE TEST ENTER/EDIT ORDERABLES Final Result * POCT Glucose (01/03/2025 2:54 PM EDT) Glucose Blood, POC 125 60 - 200 mg/dL QC Media Lot # [id number] Lot# Expiration Date 72 Blood Capillary blood specimen / Unknown 01/03/2025 2:54 PM EDT Evelyn Mitchell MD POINT OF CARE TEST ENTER/EDIT ORDERABLES Final Result documented in this encounter Visit Diagnoses Diagnosis Acquired hypothyroidism- Primary Unspecified hypothyroidism Dietary counseling Dietary surveillance and counseling Exercise counseling Overweight Routine screening for STI (sexually transmitted infection) Screening examination for venereal disease Peptic ulcer Peptic ulcer, unspecified site, unspecified as acute or chronic, without mention of hemorrhage, perforation, or obstruction Hemorrhoids, unspecified hemorrhoid type Encounter for screening for malignant neoplasm of colon Bilateral kidney stones Wheezing on right side of chest on exhalation Elevated ALT measurement Encounter for immunization documented in this encounter Additional Health Concerns Assessment Noted Time PHQ-9 Depression Total Score: 0 01/05/20 24 11:21 AM EDT documented as of this encounter Care Teams Magnetic Resonance Imaging Coordinator Relationship Specialty Start Date End Date Evelyn Mitchell MD [address] [place] [address] PCP - General Family Medicine 03/25/20 documented as of this encounter
--- NOTE | ~2025-01-04 | XR_ITS ---
EXAMINATION: XR CHEST 2 VIEWS HISTORY: wheezing and RUL COMPARISON: There are no prior studies available for comparison. FINDINGS: PA and lateral views of the chest are submitted. The lungs are expanded and clear. There is no pleural effusion, pneumothorax, or pulmonary vascular congestion. The heart is normal in size. The bones are intact. XR/XR chest 2V IMPRESSION: Clear lungs. Electronically signed by: Telly Singleton MD 01/04/2025 10:23 AM EDT
--- OUTSIDE RECORDS SUMMARY | 2025-01-04 11:54 | XMS_ITS | Encounter Summary ---
Author Organization [employer] Address [address] [place] [address] Care Team Providers Care Presidential Helicopter Crew Chief Name Role Phone Evelyn Mitchell MD Primary Care Provider [phone] Encounter Details Date Type Department Care Team (Late st Contact Info) Description 08/18/2023 Orders Only [facility] MEDICINE [address] [place] [address] ProviderDerrell MD Social History Tobacco Use Types [...] Description 01/17/2025 9:00 AM EDT Office Visit [facility] OPTOMETRY [address] [place] [address] Eb, Letty, OD [address] [place] [address] documented as of this encounter Procedures Procedure Name Priority Date/Time Associated Diagnosis Comments HM COLONOSCOPY Routine 04/09/2021 8:21 AM EST documented in this encounter Results * Hm Colonoscopy (04/09/2021 8:21 AM EST) us Historical Provider HEALTH MAINTENANCE Final Result documented in this encounter Visit Diagnoses Not on filedocumented in this encounter Care Teams Presidential Helicopter Crew Chief Relationship Specialty Start Date End Date Evelyn Mitchell MD [address] [place], [place] [phone] PCP - General Family Medicine 03/25/20 documented as of this encounter
--- OUTSIDE RECORDS SUMMARY | 2025-01-04 11:54 | XMS_ITS | Encounter Summary ---
Author Organization [employer] [facility] Address [address] [place] [address] Care Team Providers Care Packing Machine Operator Name Role Phone Evelyn Mitchell MD Primary Care Provider [phone] Encounter Details Date Type Department Care Team (Late Contact Info) Description 12/09/2022 Orders Only [facility] MEDICINE [address] [place], [place] [phone] Evelyn Mitchell MD [address] [place] [address] Other hyperlipidemia (Primary Dx) Social History Tobacco [...] Department Care Team (Late Contact Info) Description 01/17/2025 9:00 AM EDT Office Visit [facility] OPTOMETRY [address] [place], [place] [phone] EbLetty milligan, OD [address] [place] [address] documented as of this encounter Visit Diagnoses Diagnosis Other hyperlipidemia- Primary documented in this encounter Care Teams Packing Machine Operator Relationship Specialty Start Date End Date Evelyn Mitchell MD [address] [place], [place] [phone] PCP - General Family Medicine 03/25/20 documented as of this encounter
--- OUTSIDE RECORDS SUMMARY | 2025-01-04 11:54 | XMS_ITS | Encounter Summary ---
Author Organization [employer] Address [address] [facility] 7t [place] [address] Care Team Providers Care Credit Interviewer Name Role Phone Evelyn Mitchell MD Primary Care Provider [phone] Encounter Details Date Type Department Care Team (Late st Contact Info) Description 03/31/2023 Orders Only [facility] MEDICINE [address] [place], [place] [phone] Evelyn Mitchell MD [address] [place], [place] [phone] Positive Helicobacter pylori test (Primary Dx) Social [...] Description 01/17/2025 9:00 AM EDT Office Visit [facility] OPTOMETRY [address] [place] [address] Letty Parson, OD [address] [place] [address] documented as of this encounter Visit Diagnoses Diagnosis Positive Helicobacter pylori test- Primary documented in this encounter Care Teams Credit Interviewer Relationship Specialty Start Date End Date Evelyn Mitchell MD [address] [place] [address] PCP - General Family Medicine 03/25/20 documented as of this encounter
--- OUTSIDE RECORDS SUMMARY | 2025-01-04 11:54 | XMS_ITS | Clinical Summary ---
Author Organization [employer] [facility] Address [address] [place] [address] Care Team Providers Care Manager Of Software Name Role Phone Unavailable Primary Care Provider [...] 12/04/2013 Zoster Vaccines (1 of 2) 12/04/2013 Depression Screening 04/12/2024 COVID-19 Vaccine (1 - 2023-2 5 season) 2024 Influenza Vaccine (#1) 2024 RSV Immunization Adult [...]
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
--- OUTSIDE RECORDS SUMMARY | 2025-01-04 11:55 | XMS_ITS | Encounter Summary ---
Author Organization [employer] Address [address] [facility] [address]t [place] [address] Care Team Providers Care Fondant Cooker Name Role Phone Evelyn Mitchell MD Primary Care Provider [phone] Encounter Details Date Type Department Care Team (Latest Contact Info) Description 01/03/2025 Travel Social History Tobacco Use Types Packs/Day Years [...] Description 01/17/2025 9:00 AM EDT Office Visit [facility] OPTOMETRY [address] [place] [address] Letty Parson, OD [address] [place] [address] documented as of this encounter Visit Diagnoses Not on filedocumented in this encounter Additional Health Concerns Assessment Noted Time PHQ-9 Depression Total Score: 0 01/05/20 24 11:21 AM EDT documented as of this encounter Care Teams Fondant Cooker Relationship Specialty Start Date End Date Evelyn Mitchell MD [address] [place] [address] PCP - General Family Medicine 03/25/20 documented as of this encounter
--- OUTSIDE RECORDS SUMMARY | 2025-01-04 11:55 | XMS_ITS | Encounter Summary ---
Author Organization [facility] [employer] [facility] Address [address] [facility] [address] [place] [address] Care Team Providers Care Aeronautical Inspector Name Role Phone Evelyn Mitchell MD Primary Care Provider [phone] Encounter Details Date Type Department Care Team (Latest Contact Info) Description 12/31/2020 Abstract [facility] CONVERSIONS Dental, Provider, DDS Social History Tobacco [...] Description 01/17/2025 9:00 AM EDT Office Visit [facility] OPTOMETRY [address] [place] [address] EbLetty milligan, OD [address] [place] [address] documented as of this encounter Visit Diagnoses Not on filedocumented in this encounter Care Teams Aeronautical Inspector Relationship Specialty Start Date End Date Evelyn Mitchell MD [address] [place] [address] PCP - General Family Medicine 03/25/20 documented as of this encounter
--- OUTSIDE RECORDS SUMMARY | 2025-01-04 11:55 | XMS_ITS | Encounter Summary ---
Author Organization [employer] [facility] Address [address] [facility] 7t [place] [address] Care Team Providers Care Bottom Filler Name Role Phone Evelyn Mitchell MD Primary Care Provider [phone] Encounter Details Date Type Department Care Team (Latest Contact Info) Description 11/09/2018 Abstract [facility] CONVERSIONS Dental, Provider, DDS Social History [...] Description 01/17/2025 9:00 AM EDT Office Visit [facility] OPTOMETRY [address] [place] [address] Letty Parson, OD [address] [place] [address] documented as of this encounter Visit Diagnoses Not on filedocumented in this encounter Care Teams Bottom Filler Relationship Specialty Start Date End Date Evelyn Mitchell MD [address] [place] [address] PCP - General Family Medicine 03/25/20 documented as of this encounter
--- OUTSIDE RECORDS SUMMARY | 2025-01-04 11:55 | XMS_ITS | Encounter Summary ---
Author Organization [employer] Address [address] [facility] 7t [place] [address] Care Team Providers Care Rn Wound Care Name Role Phone Evelyn Mitchell MD Primary Care Provider [phone] Reason for Visit * Reason Onset Date Comments Follow-up 01/02/2025 Encounter Details Date Type Department Care Team ([facility] st Contact Info) Description 01/02/2025 Telephone [facility] MEDICINE [address] [place], [place] [phone] Evelyn Mitchell MD [address] [place], [place] [phone] Follow-up Social History Tobacco Use Types Packs/Day Years [...] AM EDT documented as of this encounter Miscellaneous Notes * Telephone Encounter - Samantha Peters [place] - 01/02/2025 1:06 PM EDT Chart Prep Labs: done Images: done Referrals: not applicable Vaccines due: Covid, Flu, and PCV20 Screenings: not applicable Overdue care gaps: A1c, Glucose, SBIRT, SDOH, PHQ-9, and HUGO-7 documented in this encounter Plan of Treatment Upcoming Encounters Date Type Department Care Team (Late st Contact Info) Description 01/17/2025 9:00 AM EDT Office Visit [facility] OPTOMETRY [address] [place] [address] EbLetty milligan, OD [address] [place] [address] documented as of this encounter Visit Diagnoses Not on filedocumented in this encounter Additional Health Concerns Assessment Noted Time PHQ-9 Depression Total Score: 0 01/05/20 24 11:21 AM EDT documented as of this encounter Care Teams Rn Wound Care Relationship Specialty Start Date End Date Evelyn Mitchell MD [address] [place] [address] PCP - General Family Medicine 03/25/20 documented as of this encounter
--- OUTSIDE RECORDS SUMMARY | 2025-01-04 11:55 | XMS_ITS | Patient Health Record ---
Author Organization [facility] Address [address] [place] [address] Care Team Providers Care Head Bookkeeper Name Role Phone Evelyn Mitchell M.D. Primary Care Provider Unava Telly Su Unavailable [phone] Allergies No Known Allergies Reason For Referral [...] Notes: Nonsmoker, no sig alcohol Originally from [facility]. Problems Problem Type SNOMED Code ICD Code Onset Dates Problem Status W/U Status Risk Notes Problem 999736991 Encounter for screening for malignant neoplasm of colon (Z12.11) Active confirmed Problem Gastroesophageal reflux disease (125185404) Gastroesophageal reflux disease (K21.9) Active confirmed Problem 126397959 Gallstones (K80.20) Active confirmed Problem Diverticulosis of colon (253154361) Diverticulosis of colon (K57.30) Active confirmed Problem 048115771 Gastroesophageal reflux disease, unspecified whether esophagitis present (K21.9) Active confirmed Plan Of Treatment Pending Test Test Name Order Date US ABD 03/11/2021 Pathology 04/09/2021 US abdomen complete 04/08/2021 Future Test Test Name Order Date UPPER GI ENDOSCOPY 03/11/2021 COLONOSCOPY 03/11/2021 Next Appt Details Provider Name:Telly Xiong , 05/08/2025 09:30:00 AM, [address] [place] [address], [address], [place], [address], Insurance Providers Payer Name Payer Address Payer Phone Subscriber Number Group Number Insured Name Patient Relationship to Insured Coverage Start Date Coverage End Date [facility] [address] [address] [place], [place] [id number] NIK ALVAREZ Self - patient is the insured Medical (General) History Medical History History ICD Code Vitamin D deficiency GERD Hypertension Hypothyroidism Bilatral small kidney stones Gallstones Negative colonoscopy 2007 Hyperlipidemia BPH Denies IA,DM,CVA,Lung disease,renal dise ase GERD Surgical History Surgery Date(Month/Year) Prostate/Bladder -Dr. Rmoo, III Hemorrhoids-Dr. Pablo
[2025-01-05 09:04] LABS: HBS Num1 12.73 mIU/mL (0-7.99); HIV Num 1 0.05 S/CO (0.00-0.99); ~HepC Num1 0.11 S/CO (0.00-0.79); ~Hepatitis B Surface Antibody REACTIVE (Nonreactive); ~Hepatitis C Antibody Nonreactive (Nonreactive)
[2025-01-05 09:09] LABS: Hepatitis A Antibody IgM 0.25 Index (0-0.79); ~Hepatitis A Antibody IgM Nonreactive (Nonreactive)
== END 2025-01-04 09:56 | disposition home or self-care (01) ==
LOC: HO.HHCX 09:55
PROVIDERS: PCP General Practice; Visit Provider General Practice
DX: Z11.4 Encounter for screening for human immunodeficiency virus [HIV] (principal); Z11.59 Encounter for screening for other viral diseases; Z11.3 Encounter for screening for infections with a predominantly sexual mode of transmission; R74.01 Elevation of levels of liver transaminase levels; E03.9 Hypothyroidism, unspecified; R06.2 Wheezing
CPT/HCPCS: 36415; 71046; 84443; 86706; 86709; 86803; 87389

== ENCOUNTER → 2025-01-04 10:09 | Outpatient (BNV) | payer OTHER, SELFPAY | PROVIDERS: PCP General Practice; Visit Provider Radiology Diagnostic Radiology | DX: R06.2 Wheezing (principal) | CPT/HCPCS: 71046 ==

== ENCOUNTER 2025-04-04 08:06 | Outpatient (REF) | payer OTHER, SELFPAY ==
--- NOTE | ~2025-04-04 | US_ITS ---
EXAMINATION: US RETROPERITONEAL LIMITED (RENAL ONLY) CLINICAL INFORMATION: history of stones and recurrent pain. COMPARISON: Ultrasound on November 10, 2022. Abdomen/pelvis CT on October 24, 2024 TECHNIQUE: Real-time imaging of the kidneys. FINDINGS: RIGHT KIDNEY: 10.4 x 5.6 x 5.3 cm (SAG x AP x TRV). Small cyst in the lower pole measures 1.0 x 1.0 x 1.0 cm. Echogenic foci in the midpole measures 0.3 x 0.2 x 0.2 cm and 0.4 x 0.4 x 0.4 cm. No hydronephrosis. LEFT KIDNEY: 10.8 x 5.1 x 5.3 cm (SAG x AP x TRV). Echogenic focus in the lower pole measures 0.8 x 0.4 x 0.7 cm. No hydronephrosis. US/US renal BI IMPRESSION: Bilateral nonobstructing renal stones measuring up to 0.8 cm on the left kidney. Electronically signed by: Maggi Hernandez MD 04/04/2025 09:01 AM BEN
--- OUTSIDE RECORDS SUMMARY | 2025-04-04 08:09 | XMS_ITS | Encounter Summary ---
Author Organization [employer] [facility] Address [address] 7[address] [place] [address] Care Team Providers Care Senior Sales Engineer Name Role Phone Evelyn Mitchell MD Primary Care Provider [phone] Encounter Details Date Type Department Care Team (Late Contact Info) Description 12/09/2022 Orders Only [facility] MEDICINE [address] [place], [place] [phone] Evelyn Mitchell MD [address] [place] [address] Other hyperlipidemia (Primary Dx) Social History Tobacco [...] Department Care Team (Late Contact Info) Description 07/25/2025 9:00 AM EDT Office Visit [facility] OPTOMETRY [address] [place], [place] [phone] EbLetty milligan, OD [address] [place] [address] documented as of this encounter Visit Diagnoses Diagnosis Other hyperlipidemia- Primary documented in this encounter Care Teams Senior Sales Engineer Relationship Specialty Start Date End Date Evelyn Mitchell MD [address] [place], [place] [phone] PCP - General Family Medicine 03/25/20 documented as of this encounter
--- OUTSIDE RECORDS SUMMARY | 2025-04-04 08:09 | XMS_ITS | Encounter Summary ---
Author Organization [employer] Address [address] 7[address] [place] [address] Care Team Providers Care Promotions Executive Name Role Phone Evelyn Mitchell MD Primary Care Provider [phone] Encounter Details Date Type Department Care Team (Late st Contact Info) Description 08/18/2023 Orders Only [facility] MEDICINE [address] [place] [address] ProviderDerrell MD Social History Tobacco Use Types [...] Care Team (Late st Contact Info) Description 07/25/2025 9:00 AM EDT Office Visit [facility] OPTOMETRY [address] [place] [address] Letty Parson, OD [address] [place] [address] documented as of this encounter Procedures Procedure Name Priority Date/Time Associated Diagnosis Comments HM COLONOSCOPY Routine 04/09/2021 8:21 AM EST documented in this encounter Results * Hm Colonoscopy (04/09/2021 8:21 AM EST) us Historical Provider HEALTH MAINTENANCE Final Result documented in this encounter Visit Diagnoses Not on filedocumented in this encounter Care Teams Promotions Executive Relationship Specialty Start Date End Date Evelyn Mitchell MD [address] [place], [place] [phone] PCP - General Family Medicine 03/25/20 documented as of this encounter
--- OUTSIDE RECORDS SUMMARY | 2025-04-04 08:09 | XMS_ITS | Encounter Summary ---
Author Organization [employer] Address [address] [facility] 7t [place] [address] Care Team Providers Care Commission Specialist Name Role Phone Evelyn Mitchell MD Primary Care Provider [phone] Encounter Details Date Type Department Care Team (Late st Contact Info) Description 03/31/2023 Orders Only [facility] MEDICINE [address] [place], [place] [phone] Evelyn Mitchell MD [address] [place], [place] [phone] Positive Helicobacter pylori test (Primary Dx) Social [...] Description 07/25/2025 9:00 AM EDT Office Visit [facility] OPTOMETRY [address] [place], [place] [phone] Letty Parson, OD [address] [place] [address] documented as of this encounter Visit Diagnoses Diagnosis Positive Helicobacter pylori test- Primary documented in this encounter Care Teams Commission Specialist Relationship Specialty Start Date End Date Evelyn Mitchell MD [address] [place] [address] PCP - General Family Medicine 03/25/20 documented as of this encounter
--- OUTSIDE RECORDS SUMMARY | 2025-04-04 08:09 | XMS_ITS | Encounter Summary ---
Author Organization [facility] [employer] [facility] Address [address] [facility] 7t [place] [address] Care Team Providers Care Engineering Aide Name Role Phone Evelyn Mitchell MD Primary Care Provider [phone] Encounter Details Date Type Department Care Team (Latest Contact Info) Description 12/31/2020 Abstract [facility] CONVERSIONS Dental, Provider, DDS Social History [...] Description 07/25/2025 9:00 AM EDT Office Visit [facility] OPTOMETRY [address] [place] [address] Letty Parson, OD [address] [place] [address] documented as of this encounter Visit Diagnoses Not on filedocumented in this encounter Care Teams Engineering Aide Relationship Specialty Start Date End Date Evelyn Mitchell MD [address] [place] [address] PCP - General Family Medicine 03/25/20 documented as of this encounter
--- OUTSIDE RECORDS SUMMARY | 2025-04-04 08:09 | XMS_ITS | Encounter Summary ---
Author Organization [employer] [facility] Address [address] [facility] [address] [place] [address] Care Team Providers Care Computer Systems Technician Name Role Phone Evelyn Mitchell MD Primary Care Provider [phone] Encounter Details Date Type Department Care Team (Latest Contact Info) Description 11/09/2018 Abstract [facility] CONVERSIONS Dental, Provider, DDS Social History Tobacco [...] Description 07/25/2025 9:00 AM EDT Office Visit [facility] OPTOMETRY [address] [place] [address] Letty Parson, OD [address] [place] [address] documented as of this encounter Visit Diagnoses Not on filedocumented in this encounter Care Teams Computer Systems Technician Relationship Specialty Start Date End Date Evelyn Mitchell MD [address] [place] [address] PCP - General Family Medicine 03/25/20 documented as of this encounter
--- OUTSIDE RECORDS SUMMARY | 2025-04-04 08:09 | XMS_ITS | Patient Health Record ---
Author Organization [facility] Address [address] [place] [phone] Care Team Providers Care Interface Designer Name Role Phone Evelyn Mitchell M.D. Primary Care Provider Telly Glasgow Unavailable [phone] Allergies No Known Allergies Reason For Referral No Information Medications Medication SIG (Take, Route, Frequency, Duration) Notes Start Date End Date Status hydroCHLOROthiazide Active Unithroid 112 MCG Tablet 1 tablet in the morning on an empty stomach Orally Once a day; Duration: 30 day(s) Active Allergy Eye Drops Ac tive Dulcolax (colon prep) 5 MG Tablet Delayed Release take at 3:00 p.m and 7:00p.m. Orally two tablets twice a day for one day; Duration: 1 day 03/14/2021 Active oxyBUTYnin Chloride ER 10 MG Tablet Extended Release 24 Hour Oral; Duration: 30 Active Tylenol Extra Strength 500 M G Tablet 1 tablet as needed Orally every 6 hrs Active Vitamin D3 25 MCG (1000 UT) Tablet 1 tablet Orally Once a day; Duration: 30 day(s) Active Omeprazole 40 MG Capsule Delayed Release TAKE 1 CAPSULE BY MOUTH EVERY DAY BEFORE A MEAL Oral; Duration: 30 Active hydrALAZINE HCl Acti ve MiraLax (colon prep) 17 GM/SCOOP Powder 1 238 Gm bottle mixed with Gatorade or Crystal Light Orally begin at 5:00 p.m. the day before the procedure; Duration: 1 day 03/14/2021 Active Tamsulosin HCl Activ e Atorvastatin Calcium 20 MG Tablet TAKE 1 TABLET BY MOUTH ONCE DAILY Oral; Duration: 90 Active Immunizations Vaccine Route Administration Date Status Comme nts Influenza Unknown 03/11/2021 Refused Social History Tobacco Use: Social History Observation Description Date Details (start date - stop date) Never Smoker NA - NA Social History Drugs/Alcohol: Social Info Question Answer Notes Alcohol Screen Did you have a drink containing alcohol in the past year? No Points 0 Interpretation Negative Tobacco Use: Social Info Question Answer Notes Tobacco Use/Smoking Patient is a nonsmoker Additional Details Category Social Info Options Details Miscellaneous: Marital status: Single Occupation: Restaurant kitch en worker Section Notes: Nonsmoker, no sig alcohol Originally from [facility]. Problems Problem Type SNOMED Code ICD Code Onset Dates Problem Status W/U Status Risk Notes Problem Screening for malignant neoplasm of colon (460110794) Encounter for screening for malignant neoplasm of colon (Z12.11) Active confirmed Problem Gastroesophageal reflux disease (606750078) Gastroesophageal reflux disease (K21.9) Active confirmed Problem Gallstones (072326056) Gallstones (K80.20) Active confirmed Problem Diverticulosis of colon (697788973) Diverticulosis of colon (K57.30) Active confirmed Problem Gastroesophageal reflux disease (211823855) Gastroesophageal reflux disease, unspecified whether esophagitis present (K21.9) Active confirmed Encounters Encounter Location Date Provider Diagnosis [facility] [address] [place] [address] 02/08/2025 Telly Xiong Plan Of Treatment Pending Test Test Name Order Date US ABD 03/11/2021 Pathology 04/09/2021 US abdomen complete 04/08/2021 Future Test Test Name Order Date UPPER GI ENDOSCOPY 03/11/2021 COLONOSCOPY 03/11/2021 Next Appt Details Provider Name:Telly Leal Xiong , 06/14/2025 11:00:00 AM, [address] [facility] [facility], [address], [place], [address], Insurance Providers Payer Name Payer Address Payer Phone Subscriber Number Group Number Insured Name Patient Relationship to Insured Coverage Start Date Coverage End Date [facility] [address] [address] [place], [place] [id number] NIK ALVAREZ Self - patient is the insured Medical (General) History Medical History History ICD Code Vitamin D deficiency GERD Hypertension Hypothyroidism Bilatral small kidney stones Gallstones Negative colonoscopy 2007 Hyperlipidemia BPH Denies ND,DM,CVA,Lung disease,renal dise ase GERD Surgical History Surgery Date(Month/Year) Prostate/Bladder -Dr. Romo, III Hemorrhoids-Dr. Pablo
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
== END 2025-04-04 08:07 | disposition home or self-care (01) ==
LOC: HO.US 08:06
PROVIDERS: PCP General Practice; Visit Provider General Practice
DX: N20.0 Calculus of kidney (principal)
CPT/HCPCS: 76775

== ENCOUNTER → 2025-04-04 08:09 | Outpatient (BNV) | payer OTHER, SELFPAY | PROVIDERS: PCP General Practice; Visit Provider Radiology Body Imaging | DX: R10.9 Unspecified abdominal pain (principal); Z87.442 Personal history of urinary calculi | CPT/HCPCS: 76775 ==